=== PATIENT | female | born 1930 | race Hispanic/Latino ===

== ENCOUNTER 2019-04-11 23:37 | Inpatient (IN) | payer MEDICARE, MEDICAID ==
[2019-04-12 00:15] LABS: Hemoglobin 12.9 g/dL (12.0-16.0); Mean Corpuscular HGB CONC 33.6 g/dL (32.0-36.0); Mean Corpuscular Hemoglobin 33.7 pg (27.0-31.0); Mean Platelet Volume 9.5 fL (7.4-10.4); Platelet Count 234 thou/uL (130-400); RBC Distribution Width 13.8 % (11.5-14.5); Red Blood Cell (RBC) Count 3.82 mill/uL (4.20-5.40); White Blood Cell (WBC) Count 18.2 thou/uL (4.8-10.8)
[2019-04-12 00:33] LABS: Band 9 % (5-11); MDiff Complete? YES; Monocytes 3 % (0-10); Neutrophil 88 % (42-75)
[2019-04-12 00:35] LABS: ALT (SGPT) 22 U/L (8-55); AST (SGOT) 35 U/L (5-34); Albumin 3.5 g/dL (3.4-4.8); Alkaline Phosphatase 171 U/L (40-110); Anion Gap 16 mmol/L (10-20); BUN (Urea Nitrogen) 17 mg/dL (9.8-20.1); Calc. Creatinine Clearance 0 mL/min (70-130); Calcium 10.4 mg/dL (7.8-10.44); Carbon Dioxide 27 mmol/L (23-31); Chloride 92 mmol/L (98-107); Estimated GFR-MDRD 74; Globulin 4.4 g/dL (2.4-3.5); Glucose 111 mg/dL (83-110); Lipase 8 U/L (8-78); Magnesium 1.9 mg/dL (1.6-2.6); Potassium 4.7 mmol/L (3.5-5.1); Protein, Total 7.9 g/dL (6.0-8.3); Sodium 130 mmol/L (136-145)
[2019-04-12] MEDS ORDERED: Cefepime 2 GM VIAL ONE (00:41)
[2019-04-12 00:42] LABS: Actual Bicarbonate (HCO3a) 25.4 mEq/L (22-28); Analyzer IN Cardio ER; Base Excess (BEa) 1.7 mEq/L (-2.0 to +3.0); CO2 Tension 37.2 mmHg (35.0-45.0); Calcium, Ionized 1.18 mmol/L (1.12-1.30); Carboxyhemoglobin (COHb) 0.9 gm% (0.0-3.0); Hemoglobin (Hb) 13.2 g/dL (12.0-16.0); O2 Tension (PaO2) 119.4 mmHg (> 60.0); Potassium - ABG Lab 4.43 mmol/L (3.70-5.30); pH, Arterial 7.45 (7.35-7.45)
[2019-04-12 00:43] LABS: Puncture Site RRA
[2019-04-12] MEDS ORDERED: Acetaminophen 1,000 MG in Premix Bag 1 BAG IVPB SCH (01:00)
[2019-04-12] MEDS ORDERED: Norepinephrine 8 MG/0.9% NS 250 ML ONE (03:50)
[2019-04-12] MEDS ORDERED: Succinylcholine Chloride 20 MG/ML 10 ml SYRINGE FS ONE (03:50)
[2019-04-12] MEDS ORDERED: Ketamine 50 MG/ML (10ML VIAL) ONE (03:51)
[2019-04-12] MEDS ORDERED: Rocuronium Bromide 10 MG/ML (10ML VIAL) ONE (03:51)
[2019-04-12] MEDS ORDERED: EPINEPHrine 1 MG/ML AMP ONE (03:55)
[2019-04-12] MEDS ORDERED: EPINEPHrine 1 MG/10 ML Abboject SYRINGE ONE (03:56)
[2019-04-12] MEDS ORDERED: fentaNYL Citrate/PF 2,000 MCG in Sodium Chloride 0.9% 60 ML IV SCH ×3 (04:06→08:38)
[2019-04-12] MEDS ORDERED: Oseltamivir 6 MG/ML ORAL SUSP PER TUBE SCH (04:45)
[2019-04-12 04:54] LABS: Analyzer IN Cardio ER; Base Excess (BEa) -2.2 mEq/L (-2.0 to +3.0); CO2 Tension 52.9 mmHg (35.0-45.0); Calcium, Ionized 1.17 mmol/L (1.12-1.30); Carboxyhemoglobin (COHb) 1.1 gm% (0.0-3.0); Hemoglobin (Hb) 13.7 g/dL (12.0-16.0); O2 Tension (PaO2) 96.3 mmHg (> 60.0); Potassium - ABG Lab 3.85 mmol/L (3.70-5.30); pH, Arterial 7.29 (7.35-7.45)
[2019-04-12 04:58] LABS: Puncture Site RBA
[2019-04-12 05:05] LABS: ALV-art Gradient 122.775 (0-20)
[2019-04-12 07:07] LABS: Bacteria/HPF None Seen HPF (None Seen); Bilirubin Negative (Negative); Blood, Urine Negative (Negative); Clarity Clear (Clear); Glucose, Urine (Dipstick) Normal (Negative); Leukocyte Negative Leu/uL (Negative); Nitrite Negative (Negative); Protein, Urine (Dipstick) 70 mg/dL (Neg-Trace); Squamous Epithelial 0-3 HPF (0-3); Urobilinogen Normal mg/dL (Less than 2)
[2019-04-12 07:37] LABS: Base Excess (BEa) -1.1 mEq/L (-2.0 to +3.0); CO2 Tension 31.6 mmHg (35.0-45.0); Calcium, Ionized 1.15 mmol/L (1.12-1.30); Carboxyhemoglobin (COHb) 1.3 gm% (0.0-3.0); Hemoglobin (Hb) 12.7 g/dL (12.0-16.0); O2 Tension (PaO2) 145.7 mmHg (> 60.0); Potassium - ABG Lab 4.18 mmol/L (3.70-5.30); pH, Arterial 7.46 (7.35-7.45)
[2019-04-12] MEDS ORDERED: Propofol BOLUS 1,000 MG/100 ML VIAL IV PRN ×2 (07:37→08:38)
[2019-04-12] MEDS ORDERED: Lorazepam 2 MG/ML VIAL SLOW IVP PRN (07:37)
[2019-04-12] MEDS ORDERED: Fentanyl BOLUS 250 ML IVPB PRN ×2 (07:37→08:38)
[2019-04-12] MEDS ORDERED: DISCONTINUE PREVIOUS NARCOTIC PAIN MEDICATIONS AND BENZODIAZEPINES FS SCH (07:37)
[2019-04-12] MEDS ORDERED: Morphine 2 MG/ML SYRINGE SLOW IVP PRN (07:37)
[2019-04-12] MEDS ORDERED: Propofol 1,000 MG/100 ML VIAL IV PRN ×2 (07:37→08:38)
[2019-04-12 07:43] LABS: Puncture Site LB
--- NOTE | 2019-04-12 07:45 | CT ---
PRELIMINARY REPORT/[facility]/EMERGENCY AFTER HOURS PROCEDURE PROCEDURE INFORMATION: Exam: CT Abdomen And Pelvis With Contrast Exam date and time: 04/12/2019 1:29 AM Age: 89 years old Clinical history: Abdominal pain; Patient HX: F89 w/ HX of cabg, chf and ra presents to the ED for evaluation of mental status changes, SOB, ble swelling and generalized weakness onset 3 days ago. PT states her symptoms have gradually gotten worse. Daughter reports nausea, vomiting, and intermittent diarrhea. TECHNIQUE: Imaging protocol: Computed tomography of the abdomen and pelvis with intravenous contrast. COMPARISON: No relevant prior studies available. FINDINGS: Lungs: Bibasilar fibrosis. Liver: Normal. Gallbladder and bile ducts: Cholelithiasis. Pancreas: Normal. Spleen: Normal. Adrenals: Normal. Kidneys and ureters: Bilateral simple renal cysts. Stomach and bowel: Colonic diverticulosis. Appendix: No evidence of appendicitis. Intraperitoneal space: Unremarkable. No free air. No significant fluid collection. Vasculature: Atherosclerotic disease of the visualized distal thoracic aorta. Inferior vena cava filt er present. Atherosclerotic disease of the abdominal aorta and iliac arteries. Lymph nodes: Unremarkable. No enlarged lymph nodes. Bladder: Unremarkable as visualized. Reproductive: Unremarkable as visualized. Bones/joints: Right dynamic hip screw in place. Degenerative changes of the hips and sacroiliac joints. Multilevel lumbar spine degenerative changes, with multilevel thoracolumbar fusion terminatin g at the L1 level and additional posterior lumbar spine fusion at the L4-5 level. Chronic compression deformity of the L1 vertebral body. Grade 1 (5 mm) degenerative anterolisthesis of L4 on L5. Mild levoscoliosis of the lumbar spine. Soft tissues: Normal. IMPRESSION: No acute abdominal or pelvic abnormality. Thank you for allowing us to participate in the care of your patient. Dictated and Authenticated by: Chris Cortes MD 04/12/2019 2:00 AM Central Time ([place] & [place]) FINAL REPORT CT ABDOMEN AND PELVIS WITH IV CONTRAST: DATE: 04/12/2019. TIME: Performed on an emergency basis at 0132 hours. HISTORY: Abdominal pain. FINDINGS: Agree with the preliminary report by Dr. Cortes from [facility]. No acute inflammatory process evident. Gallstone confirmed. Prominent atherosclerosis. Extensive postoperative changes and severe degenerative changes throughout the lumbar spine. IVC filter in good CT position. No evidence of bowel obstruction. Transcribed Date/Time: 04/12/2019 8:33 AM
--- NOTE | 2019-04-12 07:49 | CT ---
PRELIMINARY REPORT/[facility]/EMERGENCY AFTER HOURS PROCEDURE PROCEDURE INFORMATION: Exam: CT Angiography Chest With Contrast Exam date and time: 04/12/2019 1:29 AM Age: 89 years old Clinical history: Chest pain; Patient HX: F89 w/ HX of cabg, chf and ra presents to the ED for evaluation of mental status changes, SOB, ble swelling and generalized weakness onset 3 days ago. PT states her symptoms have gradually gotten worse. Daughter reports nausea, vomiting, and intermittent diarrhea. TECHNIQUE: Imaging protocol: Computed tomographic angiography of the chest with intravenous contrast. 3D rendering: MIP reconstructed images were created and reviewed. COMPARISON: No relevant prior studies available. FINDINGS: Pulmonary arteries: No acute pulmonary emboli. Aorta: Atherosclerotic disease of the thoracic aorta, without aneurysm. Lungs: Bilateral, peripheral, lower lobe predominant fibrosis and minimal bronchiectasis. Minimal honeycombing. 7 x 5 mm pneumatocele within the lingula. Pleural space: Unremarkable. No pneumothorax. No pleural effusion. Heart: Changes of prior sternotomy and CABG. Gallbladder and bile ducts: Cholelithiasis. Lymph nodes: Unremarkable. No enlarged lymph nodes. Bones/joints: Multilevel thoracic spine degenerative changes, with partially visualized posterior thoracolumbar spine fusion and evidence of prior vertebral augmentation of the T9-10 level. Chronic a ppearing T5 vertebral plana. Chronic-appearing mild anterior compression deformity of the T7 vertebral body. Gradual kyphotic deformity of the thoracic spine, likely secondary to degenerative changes and vertebral body compression deformities. Soft tissues: Unremarkable. IMPRESSION: 1. No acute pulmonary emboli. 2. Bilateral, peripheral, lower lobe predominant fibrosis and minimal bronchiectasis. Minimal honeycombing. Findings most compatible with chronic interstitial lung disease such as fibrotic nonspecific interstitial pneumonitis or chronic hypersensitivity pneumonitis. 3. Additional findings as described above. Thank you for allowing us to participate in the care of your patient. Dictated and Authenticated by: Chris Cortes MD 04/12/2019 1:55 AM Central Time ([place] & [place]) FINAL REPORT CT ARTERIOGRAM CHEST WITH IV CONTRAST AND 3D IMAGING: DATE: 04/12/2019 TIME: Performed on emergency basis at 0137 hours. HISTORY: Chest pain. Dyspnea. FINDINGS: Agree with the preliminary report by Dr. Cortes from [facility]. No CT evidence of pulmonary e mbolus. Extensive fibrotic changes. Minimal bronchiectasis. Prominent atherosclerosis. Extensive incidental findings as detailed in the preliminary report. Abdominal findings better detail ed on separately reported dedicated CT abdomen. Transcribed Date/Time: 04/12/2019 8:31 AM
[2019-04-12] MEDS ORDERED: FLU VACC TS2019-20(65YR UP)/PF 180 MCG/0.5 ML SYRINGE IM ONE (08:00)
--- NOTE | 2019-04-12 08:06 | HP ---
PRIMARY CARE PHYSICIAN: Madisyn Eason MD CHIEF COMPLAINT: Not feeling well. HISTORY OF PRESENT ILLNESS: The history of present illness is very limited and is taken almost entirely from discussion with the patient's nurse at the bedside. Currently, there is no family available and the patient is intubated and cannot give her own history. But, Ms. Mosqueda is an 89-year-old female, who was reported to have been hospitalized recently for cellulitis and then was transitioned to inpatient rehab. She was then discharged home. She lives with her daughter and the family noticed that in the last few days that she has been extremely tired. They also noted that she has been feeling bad and appeared to be short of breath. When she arrived to the emergency room, it appeared that she was working hard to breathe. They did an x-ray on her showing significant infiltrate on the right and started on antibiotics as well as placed her on BiPAP. She seemed to be doing well with the BiPAP and had been on BiPAP for about 3 hours when they noticed that suddenly her blood pressure dropped as well as her saturations and she seemed to be acting strange. For this reason, they went ahead and intubated her and we have been consulted for admission to the hospital for respiratory failure. REVIEW OF SYSTEMS: Unobtainable. PAST MEDICAL HISTORY: Taken from the patient's progress note from a recent clinic visit from Dr. Eason and includes a past medical history of diabetes mellitus, rheumatoid arthritis, congestive heart failure, hypertension, and depression. PAST SURGICAL HISTORY: She has had coronary artery bypass grafting, cataract surgery, back surgery, that she developed osteomyelitis and then had to have a redo surgery. SOCIAL HISTORY: She is a nonsmoker, nondrinker. She lives with family at home. ALLERGIES: TO PENICILLIN. CURRENT MEDICATIONS: Include; 1. Losartan 50/12.5 one tablet daily. 2. Plaquenil 200 mg daily. 3. Prednisone 5 mg daily. 4. Fish oil daily. 5. Isosorbide mononitrate 60 mg extended release daily. 6. Xarelto 20 mg daily. 7. Paroxetine 10 mg daily. 8. Gabapentin 300 mg 2 tablets daily. 9. Lasix 20 mg 2 tablets daily. 10. Caltrate 600 plus D3 daily. 11. Nexium 20 mg daily. 12. Duloxetine 30 mg daily. 13. Vitamin C 500 mg daily. 14. Crestor 5 mg p.o. daily. PHYSICAL EXAMINATION: GENERAL: She is intubated. She is very thin and frail in appearance and I am unable to assess orientation. HEENT: Her pupils are reactive. NECK: There is no adenopathy. No bruits. LUNGS: She has coarse breath sounds bilaterally. It is actually a bit difficult to hear over the ventilator, but appears that she has rales at the bases. CARDIOVASCULAR: She has a normal S1 and S2. There is no S3 or S4. No murmurs, clicks, or rubs. ABDOMEN: Soft, nontender, and nondistended. Positive for bowel sounds. No rebound. No guarding. No organomegaly. EXTREMITIES: There is no clubbing or cyanosis. No edema. NEUROLOGICAL: Grossly nonfocal. LABORATORY DATA: Her labs are reviewed. The white blood cell count is 18.2, hemoglobin 12.9, hematocrit is 38.4, and platelet count is 234. D-dimer 3.71. Sodium 130, potassium 4.7, chloride is 92, CO2 is 27, BUN is 17, creatinine 0.74, glucose is 111, AST 35, ALT 22, and alkaline phosphatase is 171. ASSESSMENT AND PLAN: This is a pleasant 89-year-old female, who is being admitted for respiratory failure with hypoxemia. She has required ventilator support. 1. Respiratory failure likely as a result of hospital-acquired pneumonia. We will be placing the patient in the ICU. Start her on IV antibiotics to cover for healthcare hospital-associated pneumonia. Pulmonology will be consulted to aid in her management as well as her vent management. 2. Hypertension. Her blood pressure was initially elevated. We can place her on p.r.n. medications for her blood pressure as well as consider a Catapres patch at this time until nasogastric tube can be placed or she is extubated and starting back on oral medicines. 3. Congestive heart failure, unknown type. This appears to be clinically compensated. However, she could be volume overloaded in addition to the pneumonia. We will check an echocardiogram to assess her ejection fraction. 4. Deep venous thrombosis and gastrointestinal prophylaxis. She is on Eliquis. Therefore, we will continue this if at all possible in lieu of subcutaneous heparin and she will be placed on IV proton pump inhibitor. Job ID: [id number]
[2019-04-12] MEDS ORDERED: Acetaminophen 325 MG TAB PO PRN (08:09)
[2019-04-12] MEDS ORDERED: Ventilator Sedation Protocol 1 EACH FS ONE (08:09)
[2019-04-12] MEDS ORDERED: Cefepime 2 GM in Sodium Chloride 0.9% 100 ML IVPB SCH (09:00)
[2019-04-12] MEDS ORDERED: Famotidine/PF 20 mg/2ml Vial SLOW IVP SCH (09:00)
--- NOTE | 2019-04-12 09:51 | CON ---
DATE OF CONSULTATION: 04/12/2019 This is 70 minutes of time, of that time, greater than 50% spent with the patient and/or the patient's unit in the hospital. REASON FOR CONSULTATION: Respiratory failure. HISTORY OF PRESENT ILLNESS: The patient is an 89-year-old female, who has been doing poorly at home over the last 3 days. The daughter was concerned about nausea, vomiting, and fever. She called 911 because she was unable to get the patient in the car. She was brought here. Her x-ray appeared to show pneumonia. She was started on BiPAP, but deteriorated in terms of respiratory status and had to be intubated. The patient was recently at the [facility] in February with what appears to be left lower extremity cellulitis. She was treated then sent over to rehab, but has been doing poorly since coming home from rehab. PAST MEDICAL HISTORY: 1. Rheumatoid arthritis. 2. Question of congestive heart failure. 3. Hypertension. 4. Depression. 5. Diabetes mellitus. PAST SURGICAL HISTORY: 1. Coronary artery bypass grafting surgery. 2. Cataract surgery. 3. Back surgery. 4. Osteomyelitis. SOCIAL HISTORY: Lifetime nonsmoker. Does not consume alcohol. Lives at home with her family. ALLERGIES: PENICILLIN. MEDICATIONS: Prior to admission: 1. Losartan. 2. Plaquenil. 3. Prednisone. 4. Fish oil. 5. Isosorbide. 6. Xarelto. 7. Paroxetine. 8. Gabapentin. 9. Lasix. 10. Caltrate. 11. Nexium. 12. Duloxetine. 13. Vitamin C. 14. Crestor. REVIEW OF SYSTEMS: Cannot be obtained as the patient is on mechanical ventilation. PHYSICAL EXAMINATION: VITAL SIGNS: Temperature 98.8, pulse 84, blood pressure 104/66, and O2 saturation 100%. GENERAL: She is an elderly female, who is intubated and sedated. HEENT: Pupils are reactive. Sclerae anicteric. Oropharynx clear. NECK: No adenopathy or JVD. LUNGS: She has coarse inspiratory crackles most prominent over the bases. CARDIAC: S1 and S2, regular. ABDOMEN: Soft, nontender, and nondistended. EXTREMITIES: No clubbing, cyanosis, or edema. LABORATORY DATA: Sodium 130, potassium 4.7, chloride 92, CO2 of 27, BUN 17, creatinine 0.7, glucose 111, albumin 3.5. A pH of 7.46, pCO2 of 31, pO2 of 145 on SIMV rate 16, tidal volume 400, PEEP 5, pressure support 10, and FiO2 of 40%. White blood cell count 18.2, hematocrit 38.4, and platelet count 234. Urinalysis shows 7 to 10 white blood cells. D-dimer was 3.7. I reviewed her chest x-ray and CT scan personally. The CT scan shows profound interstitial changes bilaterally with some honeycombing. To me, this looks like a classic pulmonary fibrosis picture. She also has a fairly large pneumatocele in the left chest. ASSESSMENT: 1. Acute on chronic respiratory failure, requiring mechanical ventilation. I would favor this all being due to decompensated idiopathic pulmonary fibrosis or rheumatoid induced interstitial lung disease. There is nothing on her CT scan that looks like an infiltrate. However, this can easily be confused for pneumonia when looking at a plain x-ray. 2. Hypertension. 3. Diabetes mellitus. 4. Chronic prednisone use. 5. History of deep venous thrombosis. PLAN: Discussed my findings with the patient's family. I agree with broad-spectrum IV antibiotics temporarily. I would go ahead and start her on IV steroids, start IV fluids. If this is indeed due to interstitial lung disease, then she probably will not do well. We will give her a couple of days and see what results from her cultures and then I will re-discuss long-term issues with the family. Job ID: [id number]
[2019-04-12] MEDS: Cefepime 1 GM in Sodium Chloride 0.9% 100 ML IVPB SCH ×2 (09:56→21:31)
[2019-04-12] MEDS ORDERED: metroNIDAZOLE 500 MG in Premix Bag 1 BAG IVPB SCH (10:00)
--- NOTE | 2019-04-12 10:01 | RAD ---
PORTABLE CHEST: Date: 04/12/19 HISTORY: Central line placement. COMPARISON: Earlier exam same date. FINDINGS: There has been interval placement of a right-sided central line. Catheter tip overlies the right atri um. No signs of pneumothorax. No other interval change. IMPRESSION: Placement of right-sided central line. No signs of pneumothorax. POS: [facility]
[2019-04-12] MEDS: Sodium Chloride 0.9% 1,000 ML IV SCH (10:06)
--- NOTE | 2019-04-12 10:07 | RAD ---
CHEST 1 VIEW: Date: 04/11/19 HISTORY: Chest pain. Mental status change. Shortness of breath. Lower extremity swelling and weakness. FINDINGS: Extensive postop changes of the thoracolumbar spine with jazmyne and screw placement, and vertebroplasty changes. Very severe poor inspiratory effort with prominent increased linear and interstitial marking s bilaterally. Marked right shoulder joint arthrosis. Findings could represent extensive chronic inte rstitial lung disease, although certainly a component of interstitial pneumonia or pneumonitis could have a similar appearance. IMPRESSION: Poor inspiration with interstitial changes bilaterally, worse on the right side, with concern for aty pical pneumonia or interstitial pneumonia or pneumonitis, and/or some underlying chronic component. N o old studies. Recommend correlation and short-term follow-up. POS: [facility]
--- NOTE | 2019-04-12 10:20 | RAD ---
CHEST 1 VIEW: HISTORY: Shortness of breath status post intubation. FINDINGS/IMPRESSION: NG tube extends into the stomach. The tip of the endotracheal tube overlies the [place] rods and fixation but is probably in adequate position. Extensive bilateral interstitial and linear and some reticulonodular parenchymal changes with possibilities including that of bilateral atypical pneumonia or pneumonitis or less likely asymmetric interstitial edema with a probable component of chronic int erstitial lung disease. Stable from prior study. POS: [facility]
[2019-04-12] MEDS ORDERED: Norepinephrine 8 MG/0.9% NS 250 ML IVPB SCH (10:37)
[2019-04-12] MEDS ORDERED: Iopamidol 370 76% 50 ML VIAL FS ONE (11:16)
[2019-04-12] MEDS ORDERED: Iopamidol-370 76% 500 ML 1 ML ONE (11:31)
[2019-04-12] MEDS: methylPREDNISolone Sod Succ 40 MG VIAL IVP SCH ×2 (12:03→17:16)
[2019-04-12 12:34] LABS: Lactic Acid 2.7 mmol/L (0.5-2.2)
[2019-04-12] MEDS: Vancomycin HCl 1 GM in Premix Bag 1 BAG IVPB SCH (14:41)
--- NOTE | 2019-04-12 14:56 | PDOC.HOSPP ---
- Subjective Encounter Date: 04/12/19 Encounter Time: 13:00 Subjective: awakens to touch, not oriented, lethargic on vent - Objective Vital Signs & Weight: Vital Signs (12 hours) Temp Pulse Resp BP Pulse Ox 04/12/19 14:00 13 04/12/19 13:53 62 135/62 04/12/19 12:00 98.2 F 15 04/12/19 11:23 74 94/56 L 04/12/19 08:00 100 04/12/19 07:00 98.8 F 04/12/19 06:58 92 127/77 Weight Admit Weight 125 lb Weight 125 lb 0.034 oz Most Recent Monitor Data Heart Rate from ECG 69 NIBP 155/78 NIBP BP-Mean 103 Respiration from ECG 20 SpO2 100 I&O: 04/11/19 04/12/19 04/13/19 06:59 06:59 06:59 Intake Total 200 Output Total 122 Balance 78 Result Diagrams: 04/11/19 23:51 04/11/19 23:51 Hospitalist ROS - Medication Medications: Active Medications Generic Name Dose Route Start Last Admin Trade Name Freq PRN Reason Stop Dose Admin Cefepime HCl 1 gm/ Sodium 100 mls @ 200 mls/hr 04/12/19 09:00 04/12/19 09:56 Chloride IVPB 100 mls Q12HR CLARA Administration Metronidazole 500 mg/ Device 100 mls @ 100 mls/hr 04/12/19 10:00 04/12/19 09: 57 IVPB 100 mls 0200,1000,1800 CLARA Administration Vancomycin HCl 1 gm/ Device 200 mls @ 200 mls/hr 04/12/19 15:00 04/12/19 14: 41 IVPB 200 mls 0300,1500 CLARA Administration Sodium Chloride 1,000 mls @ 70 mls/hr 04/12/19 09:15 04/12/19 10:06 Normal Saline 0.9% IV 1,000 mls .[id number] CLARA Administration Methylprednisolone Sodium Succinate 20 mg 04/12/19 12:00 04/12/19 12:03 Solu-Medrol IVP 20 mg Q6HR CLARA Administration Sodium Chloride 10 ml 04/12/19 09:00 04/12/19 10:13 Flush - Normal Saline IVF 10 ml Q12HR CLARA Administration - Exam General Appearance: awake alert, ill appearing Eye: PERRL, anicteric sclera ENT: no oropharyngeal lesions, dry oral mucosa Neck: supple, no JVD Heart: RRR, no murmur Respiratory: no wheezes, no rales, rhonchi Gastrointestinal: soft, non-tender, non-distended, normal bowel sounds Extremities: no cyanosis, 1+ LE edema Neurological: cranial nerve grossly intact, no focal deficits Hosp A/P (1) Acute respiratory failure with hypoxia Code(s): J96.01 - ACUTE RESPIRATORY FAILURE WITH HYPOXIA Status: Acute (2) Interstitial lung disease Code(s): J84.9 - INTERSTITIAL PULMONARY DISEASE, UNSPECIFIED Status: Chronic (3) Rheumatoid arthritis Code(s): M06.9 - RHEUMATOID ARTHRITIS, UNSPECIFIED Status: Chronic Qualifiers: Rheumatoid arthritis location: unspecified site (4) Hypotension Status: Acute Qualifiers: Hypotension type: unspecified hypotension type Qualified Code(s): I95.9 - Hypotension, unspecified (5) DM type 2 (diabetes mellitus, type 2) Status: Chronic Qualifiers: Diabetes mellitus emt intermediate insulin use: without emt intermediate use (6) CAD (coronary artery disease) Code(s): I25.10 - ATHSCL HEART DISEASE OF [place] CORONARY ARTERY W/O ANG PCTRS Status: Chronic Qualifiers: Coronary Disease-Associated Artery/Lesion type: bypass graft [place] vs. transplanted heart: [place] heart Associated angina: without angina Qualified Code(s): I25.810 - Atherosclerosis of coronary artery bypass graft(s) without angina pectoris (7) Dyslipidemia Code(s): E78.5 - HYPERLIPIDEMIA, UNSPECIFIED Status: Chronic - Plan is on cefepime and vanc, nebs, iv steroids dc flagyl for now continue iv fluids, may taper and dc levophed for map of 60 RA labs, crp, whit with reflex discussed code status with daughter at bedside, she does not want cpr done and continue to see if she can come out of vent prognosis guarded.
[2019-04-12] MEDS ORDERED: Vancomycin HCl 1 GM in Premix Bag 1 BAG IVPB SCH (15:00)
[2019-04-12] MEDS ORDERED: Heparin 1,000 UNITS/ML VIAL ONE (16:40)
[2019-04-12] MEDS: Lorazepam 2 MG/ML VIAL SLOW IVP PRN ×2 (17:10→20:10)
--- NOTE | 2019-04-12 21:15 | CT ---
CT THORACIC SPINE WITH IV CONTRAST: CT LUMBAR SPINE WITH IV CONTRAST: HISTORY: Mid back wound, tracing to the spine and concern for osteomyelitis. FINDINGS: There are postop changes of metallic hardware in the thoracic and lumbar spine. The metallic hardware appears intact. Multiple compression fractures are seen in the thoracolumbar spine, most severe at t he T5 and L1 vertebral body levels. There are changes of vertebroplasty in the lower thoracic spine, at the T9 and T10 levels. The possibility of osteomyelitis cannot be excluded on this study. An MRI should be performed. There is grade 1 anterolisthesis of L4 over L5. There are tiny bilateral pleural effusions. Old bilat eral lower rib fractures are present. There is an IVC filter. A right renal cyst is present. There is colonic diverticulosis. POS: [facility]
[2019-04-13] MEDS: methylPREDNISolone Sod Succ 40 MG VIAL IVP SCH ×4 (01:39→20:51)
[2019-04-13] MEDS: Vancomycin HCl 1 GM in Premix Bag 1 BAG IVPB SCH ×2 (03:49→15:38)
[2019-04-13] MEDS: Sodium Chloride 0.9% 1,000 ML IV SCH ×3 (03:49→20:46)
[2019-04-13] MEDS: Lorazepam 2 MG/ML VIAL SLOW IVP PRN (04:01)
[2019-04-13 04:58] LABS: Anion Gap 12 mmol/L (10-20); BUN (Urea Nitrogen) 21 mg/dL (9.8-20.1); Calc. Creatinine Clearance 55 mL/min (70-130); Calcium 8.4 mg/dL (7.8-10.44); Carbon Dioxide 21 mmol/L (23-31); Chloride 104 mmol/L (98-107); Estimated GFR-MDRD 89; Glucose 130 mg/dL (83-110); Potassium 4.4 mmol/L (3.5-5.1); Sodium 133 mmol/L (136-145)
[2019-04-13 05:24] LABS: Band 18 % (5-11); Hemoglobin 10.6 g/dL (12.0-16.0); Lymphocytes 8 % (21-51); MDiff Complete? YES; Mean Corpuscular Hemoglobin 32.3 pg (27.0-31.0); Mean Platelet Volume 9.3 fL (7.4-10.4); Neutrophil 74 % (42-75); Platelet Count 210 thou/uL (130-400); RBC Distribution Width 13.7 % (11.5-14.5); Red Blood Cell (RBC) Count 3.29 mill/uL (4.20-5.40); White Blood Cell (WBC) Count 21.7 thou/uL (4.8-10.8)
[2019-04-13 06:58] LABS: Actual Bicarbonate (HCO3a) 19.8 mEq/L (22-28); Base Excess (BEa) -4.1 mEq/L (-2.0 to +3.0); CO2 Tension 32.7 mmHg (35.0-45.0); Calcium, Ionized 1.12 mmol/L (1.12-1.30); Carboxyhemoglobin (COHb) 0.8 gm% (0.0-3.0); Hemoglobin (Hb) 11.4 g/dL (12.0-16.0); O2 Tension (PaO2) 171.4 mmHg (> 60.0); Potassium - ABG Lab 4.24 mmol/L (3.70-5.30)
[2019-04-13 07:02] LABS: ALV-art Gradient 72.925 (0-20); Puncture Site LRA
--- NOTE | 2019-04-13 07:47 | RAD ---
Chest one view HISTORY: Pneumonia. Follow-up. COMPARISON: 04/12/2019. FINDINGS: Cardiac silhouette is magnified by projection and upper limits of normal in size. Pulmonary vasculature remains engorged and accentuated by shallow inspiration. Mediastinum is midline with postoperative changes and aortic calcification. Lines and tubes are uncha nged in position. Bilateral pleural fluid similar in appearance to the prior study. No evidence of pneumothorax. Prominent degenerative changes right shoulder. IMPRESSION: Pleural fluid, pulmonary vascular congestion, and other findings are stable.
--- NOTE | 2019-04-13 09:04 | PRG ---
DATE OF SERVICE: 04/13/2019 TIME SPENT: 35 minutes of critical time. SUBJECTIVE: The patient remains intubated on mechanical ventilation. She is deeply sedated this morning. OBJECTIVE: VITAL SIGNS: Temperature 98.0, pulse 81, blood pressure 100/55, and O2 saturation 100%. She is on Levophed drip at 1.5 mcg/minute. Intake for last 24 hours 2418 and output 509. HEENT: Unremarkable. NECK: No adenopathy or JVD. CHEST: Inspiratory crackles, both bases. CARDIAC: S1 and S2, regular. ABDOMEN: Soft. EXTREMITIES: No edema. LABORATORY DATA: Sodium 133, potassium 4.4, chloride 104, CO2 of 21, BUN 21, creatinine 0.6, glucose 130. C-reactive protein is 27.2. A pH of 7.40, pCO2 of 32, pO2 of 171 on SIMV rate 12, tidal volume 400, PEEP 5, pressure support 10, FiO2 of 40%. White blood cell count 21.7, hematocrit 33.3, and platelet count 210, with 74% neutrophils, 18% bands. Her cultures are growing out Staphylococcus aureus out of the blood culture bottles. Chest x-ray continues to show interstitial changes bilaterally. ASSESSMENT: 1. Staphylococcal sepsis - this is probably the reason for her decompensation. 2. Interstitial lung disease. Her good gas exchange on ABG favors being rheumatoid induced interstitial lung disease and not idiopathic pulmonary fibrosis. 3. Hypertension. 4. Diabetes mellitus. 5. Chronic prednisone use. 6. History of deep venous thrombosis. 7. Decubitus ulcer on back. PLAN: 1. I will see if we can lighten her sedation and perform spontaneous breathing trial and see how she looks. 2. She will need long-term IV antibiotics. She will see Dr. Higginbotham later today and he will likely adjust the coverage as needed. 3. I will cut her steroid dose in half. 4. I discussed with daughter at bedside. Job ID: [id number]
[2019-04-13] MEDS: Cefepime 1 GM in Sodium Chloride 0.9% 100 ML IVPB SCH ×2 (09:32→20:51)
[2019-04-13] MEDS: Famotidine/PF 20 mg/2ml Vial SLOW IVP SCH (09:36)
--- NOTE | 2019-04-13 11:29 | PRG ---
DATE OF SERVICE: 04/13/2019 SUBJECTIVE: The patient is seen and examined. I agree with Marleni Palmer's evaluation on 04/13/2019. The patient is an 89-year-old woman, who was critically ill with sepsis and respiratory failure on a ventilator. She has already been made DNR by the family and an ongoing discussion regarding aggressiveness of care is underway. The patient has extended past spinal history having undergone both lower lumbar and extensive thoracolumbar instrumented fusions in the past. During a recent hospitalization, she began to develop a decubitus ulcer over the thoracic region, which seems to be in the region of some prior hardware. This was evaluated by wound care here at the hospital and she continues to have an open weeping wound with fibrinous exudate in this region. It is quite possible or even likely this is right above the previous one element of the previous hardware and may in fact communicated with the previous hardware. A CT scan has been performed. No gross or francesco fluid collection was identified on the CT scan and it is impossible to say with certainty the involvement of the hardware of the spine with this open wound. There were no specific manifestations of active spinal infection. IMPRESSION AND PLAN: The patient has an open wound just above the spinal instrumentation. She is not a reasonable candidate for any type of surgery. I discussed this at length with her family. I recommend ongoing wound care and antibiotic treatment for her systemic infection. We will defer to the primary service regarding ongoing discussion on level of care. Job ID: [id number]
[2019-04-13] MEDS: Morphine 2 MG/ML SYRINGE SLOW IVP PRN ×3 (14:36→22:27)
--- NOTE | 2019-04-13 15:50 | CON ---
DATE OF CONSULTATION: REASON FOR CONSULTATION: Bacteremia. HISTORY OF PRESENT ILLNESS: An 89-year-old with history of long-standing rheumatoid arthritis, cardiomyopathy with bypass graft surgery, and prior deep vein thrombosis, on Xarelto, who was recently admitted to [facility] in February because of lethargy and weakness. She had 2 sets of blood cultures, which showed Corynebacterium in 1 set, likely a contaminant. Her urine culture was abnormal, but she did have cellulitis identified in the left leg, which was treated. The patient improved and then had been released to a rehabilitation at [facility]. There, she developed decubitus ulcer, localized to the mid back region, where she has a kyphotic curvature. The daughter has noticed this problem for the past 4 weeks at [facility]. Subsequently, she became confused a few days ago. Generalized weakness present as well with some nausea, vomiting, and intermittent diarrhea. She had been discharged from rehab 3 days before the admission to this hospital. On arrival to the emergency room, her BP was 200/117, pulse 127, respiratory rate 38, and O2 saturation 93%. She was placed in a BiPAP mask and subsequently became hypotensive, was intubated, and transferred to the ICU. The patient did have a non-intubation advanced directives, but that was changed by the daughters when she complicated in the emergency room. She appeared ill, although she was alert. Breath sounds were clear. The heart exam was normal. Abdomen is soft and not tender. A central line was placed in right IJ location. Chest x-ray did not show any infiltrates. She had an abdomen and pelvis CT scan, which showed normal findings. She also had a CT of chest with no pulmonary emboli and some evidence of chronic interstitial lung disease with fibrosis, bronchiectasis, and minimal honeycombing. Now, we have 2 sets of blood cultures positive for Staphylococcus aureus, which is methicillin susceptible. The patient is intubated. She is sedated and does not open her eyes, does not interact. She is kind of groans intermittently. She has shivering of the extremities intermittently, but no purposeful movements. There is no reported diarrhea. An indwelling Gray catheter has been removed. She is incontinent now. PAST MEDICAL HISTORY: 1. Coronary artery disease with bypass graft surgery. 2. Chronic rheumatoid arthritis. 3. Spinal fusion of lower thoracic lumbosacral area. 4. UTI. 5. Delirium. 6. Recent admission to [facility]. 7. Development of decubitus ulcer at the kyphotic curvature of the lower thoracic spine area. ALLERGIES: PENICILLIN MANY DECADES AGO, APPARENTLY WITH A RASH, ACCORDING TO THE DAUGHTER. PAST SURGICAL HISTORY: As above, she had cataract surgery and back fusion. MEDICATION LIST: 1. Furosemide. 2. Gabapentin. 3. Nexium. 4. Caltrate. 5. Centrum. 6. Vitamin C. 7. Duloxetine. 8. Ventolin HFA. 9. Rosuvastatin. 10. Prednisone 5 mg daily. 11. Losartan and hydrochlorothiazide. 12. Hydroxychloroquine. 13. Xarelto. 14. Paroxetine. 15. Isosorbide. FAMILY HISTORY: Noncontributory. PHYSICAL EXAMINATION: VITAL SIGNS: T-max 98.4, BP 116/58, pulse 70, respirations 12, FiO2 of 28 with 100% O2 saturation. SKIN: Round-shaped ulceration in the mid back area to the left side along the incision of the previous fusion of upper segment. The patient has an IJ central line on the right side and a Gary catheter has been removed. HEENT: The pupils are miotic and her eye movements are intact, although she does not follow commands. Oral cavity is dry. NECK: Stiff to all directions. LUNGS: Symmetric air entry. HEART: S1 and S2. Regular rate. No S3 or S4. ABDOMEN: Soft, not distended or tender. No ascites or bladder distention. EXTREMITIES: No joint inflammatory activity. She has deformities from prior long-standing rheumatoid arthritis. No edema. Pulses 1+ in dorsalis pedis. NEUROLOGIC: Cannot check her cognitive function. LABORATORY STUDIES: White cell count was 18.2 and 21.7; hemoglobin 12.9 and 10.6, platelets 234 with 88% neutrophils and now 18% bands. A pH of 7.4, pCO2 of 32, pO2 of 171. Creatinine is at 0.63. AST 35, ALT 171, and albumin 3.5. CRP was 27.19. Urinalysis; 7-10 wbc's, microbiology noted above. She has a thoracic spine CT, which showed chronic changes. She has an IVC filter present in place. She has a compression fracture seen in thoracolumbar spine, most severe at T5 and L1 vertebral body levels, and there is vertebroplasty of lower thoracic spine at T9 and T10 levels. ASSESSMENT: 1. Rheumatoid arthritis, on low-dose prednisone. 2. Prior deep vein thrombosis with an inferior vena cava filter. 3. Coronary artery disease with bypass graft surgery. 4. Kyphotic curvature of the thoracic spine with now development of decubitus ulcer at the intermediate, un-stageable at this point in time. Actually, there is exposed screw from the fusion from prior surgical intervention here in the hospital by Dr. Mckeon. DISCUSSION: The patient does not appear to be a candidate for surgical intervention, so we will continue her on cefazolin for protracted periods of time and placement of a PICC line. I have discussed advanced directives and the family stated that she does not want protracted intubation, but she would like the other components of treatment. The end date of therapy will be sometime around 05/27. Weekly labs. If family is interested in a more aggressive intervention, then we can order an MRI of the thoracic spine and lumbar spine. May even consider MARILYN to rule out endocarditis. Other sites are not apparently involved including no lung infiltrates, no other bone or joint involvement apparent at this time. She does not have any devices either. Job ID: [id number]
[2019-04-13] MEDS: Acetaminophen 650 MG/20.3 ML UDCUP PO PRN (20:51)
--- NOTE | 2019-04-13 21:07 | CON ---
DATE OF CONSULTATION: This is Marleni Chakraborty PA-C dictating a report for Huy Mckeon MD. HISTORY OF PRESENT ILLNESS: The patient is an 89-year-old female with a past medical history of hypertension, diabetes, rheumatoid arthritis with multiple prior thoracic and lumbar surgeries with extensive thoracolumbar fusion, who presented to the emergency department recently for generalized weakness and increased shortness of breath. During her initial evaluation, she was found to be in acute respiratory failure with 21,000 white blood cell count. She was also found to be septic and blood cultures have been positive for gram-positive cocci and Staphylococcus aureus. She is currently being treated by vancomycin and cefepime by the Medical team. There is questionable infiltrate versus interstitial lung disease. Neurosurgery was asked to consult because in addition to her acute respiratory failure and sepsis, she has a small decubitus wound along the midthoracic spine just overlying her hardware. There is a small amount of serous drainage coming from the wound and patient has been seen by Wound Care with concern for possible extension to the hardware, as well as underlying osteomyelitis. She did have a noncontrast CT done, which was negative for any obvious abscess formation. I visited the patient at the bedside. She does not open her eyes and she is currently intubated, so exam is somewhat limited. She will move all 4s intermittently. I visualized the small approximately 1 cm wound. It has been overlying, exuding, and some serous drainage on the dressing. PAST MEDICAL HISTORY: Diabetes, rheumatoid arthritis, congestive heart failure, and hypertension. PAST SURGICAL HISTORY: Prior CABG, multiple thoracic and lumbar surgeries with extensive thoracolumbar fusion, history of osteomyelitis. SOCIAL HISTORY: The patient lives at home with her family. She does not smoke, drink, or use any drugs. ALLERGIES: SHE IS ALLERGIC TO PENICILLIN. REVIEW OF SYSTEMS: Unobtainable. PHYSICAL EXAMINATION: VITAL SIGNS: On my exam, heart rate regular rhythm. BP is 132/63. She is 99%, currently being mechanically ventilated. HEENT: Head, normocephalic, atraumatic. Eyes, pupils are equal and reactive to light. ENT, oral mucosa is pink, intact. She currently has endotracheal tube in place. CARDIAC: Regular rate and rhythm. RESPIRATORY: Symmetric chest expansion. Currently being mechanically ventilated. MUSCULOSKELETAL: No obvious trauma. Symmetric pulses. She will move all fours spontaneously. NEURO: Somewhat limited. Considering her current status of being intubated, but she will move all fours spontaneously and follow some commands at times. ASSESSMENT AND PLAN: This is an 89-year-old female, who was recently admitted for respiratory failure and sepsis, was found to have a small open wound overlying her midthoracic hardware. At this point, there is no francesco infection or abscess formation on the CT. Considering her additional medical issues at that time, there are no plans for acute neurosurgical intervention. We are recommending treatment with ongoing antibiotics. I discussed this plan with Dr. Mckeon. He will also see this patient and meet with family. Job ID: [id number]
--- NOTE | 2019-04-13 21:59 | PDOC.HOSPP ---
- Subjective Encounter Date: 04/13/19 Encounter Time: 11:30 Subjective: on vent, is obtunded daughter at bedside - Objective Vital Signs & Weight: Vital Signs (12 hours) Temp Pulse Resp BP Pulse Ox 04/13/19 20:00 99.6 F 27 H 100 04/13/19 18:52 90 104/52 L 04/13/19 18:00 14 04/13/19 16:00 12 04/13/19 15:10 71 116/59 L 04/13/19 15:07 73 20 99 04/13/19 14:00 12 04/13/19 13:00 98.0 F 04/13/19 12:00 15 04/13/19 10:33 73 127/62 04/13/19 10:31 73 14 99 04/13/19 10:00 12 Weight Admit Weight 125 lb Weight 128 lb 1.417 oz Most Recent Monitor Data Heart Rate from ECG 87 NIBP 121/59 NIBP BP-Mean 79 Respiration from ECG 24 SpO2 100 I&O: 04/12/19 04/13/19 04/14/19 06:59 06:59 06:59 Intake Total 2418.6 1026.5 Output Total 509 235 Balance 1909.6 791.5 Result Diagrams: 04/13/19 04:01 04/13/19 04:01 Hospitalist ROS - Medication Medications: Active Medications Generic Name Dose Route Start Last Admin Trade Name Freq PRN Reason Stop Dose Admin Acetaminophen 650 mg 04/13/19 20:26 04/13/19 20:51 Tylenol Elixir PO 650 mg Q4H PRN Administration Headache/Fever/Mild Pain (1-3) Albuterol/Ipratropium 3 ml 04/12/19 18:30 04/13/19 18:51 Duoneb NEB 3 ml [id number] CLARA Administration Famotidine 20 mg 04/13/19 09:00 04/13/19 09:36 Pepcid SLOW IVP 20 mg QAM CLARA Administration Cefepime HCl 1 gm/ Sodium 100 mls @ 200 mls/hr 04/12/19 09:00 04/13/19 20:51 Chloride IVPB 100 mls Q12HR CLARA Administration Vancomycin HCl 1 gm/ Device 200 mls @ 200 mls/hr 04/12/19 15:00 04/13/19 15: 38 IVPB 200 mls 0300,1500 CLARA Administration Fentanyl Citrate 2,000 mcg/ 100 mls @ 0 mls/hr 04/12/19 08:38 04/12/19 22:08 Sodium Chloride IV 05/12/19 08:38 100 mls INF CLARA Administration Protocol Per Protocol Sodium Chloride 1,000 mls @ 70 mls/hr 04/12/19 09:15 04/13/19 20:46 Normal Saline 0.9% IV 1,000 mls .[id number] CLARA Administration Norepinephrine Bitartrate 250 mls @ 0 mls/hr 04/12/19 10:37 04/13/19 09:37 Levophed IVPB 250 mls INF CLARA Administration Protocol Titrate Lorazepam 2 mg 04/12/19 08:38 04/13/19 04:01 Ativan SLOW IVP 05/12/19 08:38 2 mg Q1H PRN Administration Breakthrough agitation Methylprednisolone Sodium Succinate 20 mg 04/13/19 09:00 04/13/19 20:51 Solu-Medrol IVP 20 mg BID CLARA Administration Morphine Sulfate 2 mg 04/12/19 08:38 04/13/19 15:40 Morphine SLOW IVP 05/12/19 08:38 2 mg Q1H PRN Administration BREAKTHROUGH PAIN/Agitation Sodium Chloride 10 ml 04/12/19 09:00 04/13/19 20:51 Flush - Normal Saline IVF 10 ml Q12HR CLARA Administration - Exam General Appearance: ill appearing Eye: PERRL, anicteric sclera ENT: no oropharyngeal lesions, dry oral mucosa Neck: supple, no JVD Heart: RRR, no murmur Respiratory: no wheezes, no rales, rhonchi Gastrointestinal: soft, non-tender, non-distended, normal bowel sounds Extremities: no cyanosis, no edema Neurological: cranial nerve grossly intact, no focal deficits Hosp A/P (1) Acute respiratory failure with hypoxia Code(s): J96.01 - ACUTE RESPIRATORY FAILURE WITH HYPOXIA Status: Acute (2) Interstitial lung disease Code(s): J84.9 - INTERSTITIAL PULMONARY DISEASE, UNSPECIFIED Status: Chronic (3) Rheumatoid arthritis Code(s): M06.9 - RHEUMATOID ARTHRITIS, UNSPECIFIED Status: Chronic Qualifiers: Rheumatoid arthritis location: unspecified site (4) Hypotension Status: Resolved Qualifiers: Hypotension type: unspecified hypotension type Qualified Code(s): I95.9 - Hypotension, unspecified (5) DM type 2 (diabetes mellitus, type 2) Status: Chronic Qualifiers: Diabetes mellitus long-term insulin use: without terminal press operator use (6) CAD (coronary artery disease) Code(s): I25.10 - ATHSCL HEART DISEASE OF [place] CORONARY ARTERY W/O ANG PCTRS Status: Chronic Qualifiers: Coronary Disease-Associated Artery/Lesion type: bypass graft [place] vs. transplanted heart: [place] heart Associated angina: without angina Qualified Code(s): I25.810 - Atherosclerosis of coronary artery bypass graft(s) without angina pectoris (7) Dyslipidemia Code(s): E78.5 - HYPERLIPIDEMIA, UNSPECIFIED Status: Chronic (8) Sepsis Code(s): A41.9 - SEPSIS, UNSPECIFIED ORGANISM Status: Acute Qualifiers: Sepsis type: methicillin susceptible Staphylococcus aureus Sepsis acute organ dysfunction status: with acute organ dysfunction Acute respiratory failure type: with hypoxia Severe sepsis shock status: with septic shock (9) Bacteremia due to methicillin susceptible Staphylococcus aureus (MSSA) Code(s): R78.81 - BACTEREMIA Status: Acute - Plan is on cefepime and vanc, nebs, iv steroids has spinal decubitus in the mid thoracic area continue iv fluids, may taper and dc levophed for map of 60 RA labs, crp, whit with reflex discussed code status with daughter at bedside, she does not want cpr done and continue to see if she can come out of vent (04/12/2019) prognosis guarded, not sure if she will survive this admission.
[2019-04-14] MEDS: Vancomycin HCl 1 GM in Premix Bag 1 BAG IVPB SCH (02:56)
[2019-04-14] MEDS: Morphine 2 MG/ML SYRINGE SLOW IVP PRN (05:20)
[2019-04-14 06:54] LABS: Actual Bicarbonate (HCO3a) 19.9 mEq/L (22-28); Base Excess (BEa) -1.9 mEq/L (-2.0 to +3.0); Calcium, Ionized 1.11 mmol/L (1.12-1.30); Carboxyhemoglobin (COHb) 0.7 gm% (0.0-3.0); Potassium - ABG Lab 4.16 mmol/L (3.70-5.30); pH, Arterial 7.52 (7.35-7.45)
[2019-04-14 07:23] LABS: ALV-art Gradient 10.745 (0-20); CO2 Tension 25.1 mmHg (35.0-45.0); Puncture Site LRA
[2019-04-14] MEDS: Cefepime 1 GM in Sodium Chloride 0.9% 100 ML IVPB SCH (07:49)
[2019-04-14] MEDS: Famotidine/PF 20 mg/2ml Vial SLOW IVP SCH (07:49)
--- NOTE | 2019-04-14 08:13 | PRG ---
DATE OF SERVICE: 04/14/2019 TIME SPENT: 35 minutes of critical care time. SUBJECTIVE: The patient remains intubated on mechanical ventilation. She remains encephalopathic, not following commands for me. She is on spontaneous breathing trial this morning, but is somewhat tachypneic. OBJECTIVE: VITAL SIGNS: On exam, temperature is 97.9, pulse 96, blood pressure 139/73, and O2 saturation 98%. She is currently requiring no vasopressors. HEENT: Unremarkable except for eye deviation to the right. NECK: No adenopathy or JVD. CHEST: Inspiratory crackles diffusely. CARDIAC: S1 and S2, regular. ABDOMEN: Soft and nontender. EXTREMITIES: No edema. LABORATORY DATA: ABG; pH of 7.52, pCO2 of 25, pO2 of 129, that is on SIMV rate 12, tidal volume 400, PEEP 5, pressure 14, and FiO2 of 24%. IMAGING DATA: Her chest x-ray shows no acute changes. No other labs were done today. ASSESSMENT: 1. Staphylococcal sepsis likely from infected hardware in the back. 2. Acute respiratory failure, requiring mechanical ventilation. 3. Encephalopathy. PLAN: 1. Unfortunately, I do not think she is weanable until her encephalopathy has improved. I will go ahead and hold all sedative and pain medications and observe. If she were to need something, then I would consider Precedex. 2. Initiate enteral tube feeding. 3. Hopefully extubate when and if mental status improves, I will discuss with the patient's daughter. Job ID: [id number]
--- NOTE | 2019-04-14 08:32 | RAD ---
CHEST 1 VIEW: INDICATION: History of pneumonia. COMPARISON: Prior exam dated 04/13/2019. FINDINGS/IMPRESSION: There is improvement in the pulmonary vascular congestion. The patient remains intubated with a righ t IJ central venous catheter. Cardiomegaly persists. Small bilateral pleural effusions are similar appearing. No pneumothorax is evident. POS: BH
[2019-04-14] MEDS: methylPREDNISolone Sod Succ 40 MG VIAL IVP SCH (10:13)
[2019-04-14] MEDS: CEFAZOLIN 2 GM in Premix Bag 1 BAG IVPB SCH ×3 (10:13→23:42)
[2019-04-14] MEDS: Sodium Chloride 0.9% 1,000 ML IV SCH ×2 (13:26→20:02)
--- NOTE | 2019-04-14 13:35 | PDOC.HOSPP ---
- Subjective Encounter Date: 04/14/19 Encounter Time: 11:45 Subjective: on vent, not oriented but awakens easily, is off sedation daughter and son at bedside - Objective Vital Signs & Weight: Vital Signs (12 hours) Temp Pulse Resp BP Pulse Ox 04/14/19 13:00 98.1 F 04/14/19 12:00 21 H 04/14/19 10:34 99 157/85 H 04/14/19 10:31 104 H 23 H 99 04/14/19 10:00 23 H 04/14/19 08:00 19 04/14/19 07:54 98.5 F 04/14/19 06:43 88 116/59 L 04/14/19 06:41 100 24 H 98 04/14/19 06:00 32 H 04/14/19 04:00 97.9 F 26 H 04/14/19 02:38 79 141/70 H 04/14/19 02:00 26 H Weight Admit Weight 125 lb Weight 127 lb 3.307 oz Most Recent Monitor Data Heart Rate from ECG 105 NIBP 165/86 NIBP BP-Mean 112 Respiration from ECG 35 SpO2 100 I&O: 04/13/19 04/14/19 04/15/19 06:59 06:59 06:59 Intake Total 2418.6 2166.5 Output Total 509 395 150 Balance 1909.6 1771.5 -150 Result Diagrams: 04/13/19 04:01 04/13/19 04:01 Hospitalist ROS - Medication Medications: Active Medications Generic Name Dose Route Start Last Admin Trade Name Freq PRN Reason Stop Dose Admin Acetaminophen 650 mg 04/13/19 20:26 04/13/19 20:51 Tylenol Elixir PO 650 mg Q4H PRN Administration Headache/Fever/Mild Pain (1-3) Albuterol/Ipratropium 3 ml 04/12/19 18:30 04/14/19 10:31 Duoneb NEB 3 ml [id number] CLARA Administration Famotidine 20 mg 04/13/19 09:00 04/14/19 07:49 Pepcid SLOW IVP 20 mg QAM CLARA Administration Sodium Chloride 1,000 mls @ 70 mls/hr 04/12/19 09:15 04/14/19 13:26 Normal Saline 0.9% IV 1,000 mls .[id number] CLARA Administration Norepinephrine Bitartrate 250 mls @ 0 mls/hr 04/12/19 10:37 04/13/19 09:37 Levophed IVPB 250 mls INF CLARA Administration Protocol Titrate Cefazolin Sodium/Dextrose 2 gm 50 mls @ 100 mls/hr 04/14/19 08:00 04/14/19 10 :13 / Device IVPB 50 mls [id number],[id number] CLARA Administration Dexmedetomidine HCl 200 mcg/ 50 mls @ 0 mls/hr 04/14/19 12:30 04/14/19 13:26 Sodium Chloride IVPB 50 mls INF CLARA Administration Protocol Titrate Methylprednisolone Sodium Succinate 20 mg 04/14/19 09:00 04/14/19 10:13 Solu-Medrol IVP 20 mg DAILY CLARA Administration Sodium Chloride 10 ml 04/12/19 09:00 04/14/19 07:52 Flush - Normal Saline IVF 10 ml Q12HR CLARA Administration - Exam General Appearance: ill appearing Eye: PERRL, anicteric sclera ENT: no oropharyngeal lesions, dry oral mucosa Neck: supple, no JVD Heart: RRR, no murmur Respiratory: no wheezes, no rales, rhonchi Gastrointestinal: soft, non-tender, non-distended, normal bowel sounds Extremities: no cyanosis, 1+ LE edema Neurological: cranial nerve grossly intact, no focal deficits Hosp A/P (1) Acute respiratory failure with hypoxia Code(s): J96.01 - ACUTE RESPIRATORY FAILURE WITH HYPOXIA Status: Acute (2) Interstitial lung disease Code(s): J84.9 - INTERSTITIAL PULMONARY DISEASE, UNSPECIFIED Status: Chronic (3) Rheumatoid arthritis Code(s): M06.9 - RHEUMATOID ARTHRITIS, UNSPECIFIED Status: Chronic Qualifiers: Rheumatoid arthritis location: unspecified site (4) Hypotension Status: Resolved Qualifiers: Hypotension type: unspecified hypotension type Qualified Code(s): I95.9 - Hypotension, unspecified (5) DM type 2 (diabetes mellitus, type 2) Status: Chronic Qualifiers: Diabetes mellitus fci insulin use: without termite control servicer use (6) CAD (coronary artery disease) Code(s): I25.10 - ATHSCL HEART DISEASE OF [place] CORONARY ARTERY W/O ANG PCTRS Status: Chronic Qualifiers: Coronary Disease-Associated Artery/Lesion type: bypass graft [place] vs. transplanted heart: [place] heart Associated angina: without angina Qualified Code(s): I25.810 - Atherosclerosis of coronary artery bypass graft(s) without angina pectoris (7) Dyslipidemia Code(s): E78.5 - HYPERLIPIDEMIA, UNSPECIFIED Status: Chronic (8) Sepsis Code(s): A41.9 - SEPSIS, UNSPECIFIED ORGANISM Status: Acute Qualifiers: Sepsis type: methicillin susceptible Staphylococcus aureus Sepsis acute organ dysfunction status: with acute organ dysfunction Acute respiratory failure type: with hypoxia Severe sepsis shock status: with septic shock (9) Bacteremia due to methicillin susceptible Staphylococcus aureus (MSSA) Code(s): R78.81 - BACTEREMIA Status: Acute - Plan is on ancef tid, nebs, iv steroids has spinal decubitus in the mid thoracic area, likely contributing to current bacteremia continue iv fluids, is slowly third spacing. RA labs, crp, whit with reflex discussed code status with daughter at bedside, she does not want cpr done and continue to see if she can come out of vent (04/12/2019) prognosis guarded, not sure if she will survive this admission. on precedex d/w daughter and son at bedside, are aware of poor prognosis
[2019-04-14] MEDS ORDERED: Pancrelipase DR 12000 1 CAP FS PRN (18:46)
[2019-04-14] MEDS ORDERED: Sodium Bicarbonate Tab 325 MG TAB PER TUBE PRN (18:46)
[2019-04-15 04:30] LABS: #Lymphocytes 0.4 thou/uL (1.20-3.40); #Monocytes 0.5 thou/uL (0.11-0.59); #Neutrophils 8.9 thou/uL (1.40-6.50); %Basophils 0.1 % (0.0-1.0); %Eosinophils 0.1 % (0.0-10.0); %Lymphocytes 4.2 % (21.0-51.0); %Monocytes 4.9 % (0.0-10.0); %Neutrophils 90.8 % (42.0-75.0); Hemoglobin 9.9 g/dL (12.0-16.0); Mean Corpuscular HGB CONC 32.2 g/dL (32.0-36.0); Mean Corpuscular Hemoglobin 32.1 pg (27.0-31.0); Mean Corpuscular Volume 99.8 fL (78.0-98.0); Mean Platelet Volume 9.1 fL (7.4-10.4); Platelet Count 203 thou/uL (130-400); RBC Distribution Width 13.8 % (11.5-14.5); Red Blood Cell (RBC) Count 3.09 mill/uL (4.20-5.40); White Blood Cell (WBC) Count 9.8 thou/uL (4.8-10.8)
[2019-04-15 04:41] LABS: Anion Gap 6 mmol/L (10-20); BUN (Urea Nitrogen) 31 mg/dL (9.8-20.1); Calc. Creatinine Clearance 49 mL/min (70-130); Calcium 8.2 mg/dL (7.8-10.44); Carbon Dioxide 24 mmol/L (23-31); Chloride 110 mmol/L (98-107); Estimated GFR-MDRD 76; Glucose 130 mg/dL (83-110); Potassium 4.2 mmol/L (3.5-5.1); Sodium 136 mmol/L (136-145)
[2019-04-15 07:10] LABS: Actual Bicarbonate (HCO3a) 18.2 mEq/L (22-28); Base Excess (BEa) -3.7 mEq/L (-2.0 to +3.0); Calcium, Ionized 1.14 mmol/L (1.12-1.30); Carboxyhemoglobin (COHb) 0.5 gm% (0.0-3.0); Hemoglobin (Hb) 10.7 g/dL (12.0-16.0); O2 Tension (PaO2) 113.7 mmHg (> 60.0); Potassium - ABG Lab 4.23 mmol/L (3.70-5.30)
[2019-04-15 07:12] LABS: Puncture Site LRA
[2019-04-15] MEDS: Acetaminophen 650 MG/20.3 ML UDCUP PO PRN ×2 (07:32→17:16)
--- NOTE | 2019-04-15 07:32 | RAD ---
CHEST 1 VIEW: Date: 04/15/19 INDICATION: Pneumonia. COMPARISON: Prior exam dated 04/14/19. IMPRESSION: There is persistent cardiomegaly with pulmonary vascular congestion. Patchy interstitial and air spac e opacities persist. Patient remains intubated with ET tube approximately 9 mm above the level of the tom. Small bilateral pleural effusions persist. No pneumothorax is evident. Right IJ central veno us catheter is stable. Gastric catheter is unchanged. POS: BH
[2019-04-15] MEDS: methylPREDNISolone Sod Succ 40 MG VIAL IVP SCH (07:59)
[2019-04-15] MEDS: Famotidine/PF 20 mg/2ml Vial SLOW IVP SCH (07:59)
[2019-04-15] MEDS: CEFAZOLIN 2 GM in Premix Bag 1 BAG IVPB SCH ×2 (07:59→17:16)
[2019-04-15] MEDS: Sodium Chloride 0.9% 1,000 ML IV SCH ×2 (11:03→17:21)
--- NOTE | 2019-04-15 12:39 | PDOC.HOSPP ---
- Subjective Encounter Date: 04/15/19 Encounter Time: 10:25 Subjective: on vent, sedated not in distress - Objective Vital Signs & Weight: Vital Signs (12 hours) Temp Pulse Resp BP Pulse Ox 04/15/19 12:00 20 04/15/19 10:04 67 04/15/19 10:00 16 04/15/19 08:00 98 F 28 H 96 04/15/19 07:00 57 L 04/15/19 06:00 38 H 04/15/19 04:00 98.2 F 24 H 04/15/19 02:24 59 L 135/74 04/15/19 02:00 28 H Weight Admit Weight 125 lb Weight 129 lb 6.581 oz Most Recent Monitor Data Heart Rate from ECG 67 NIBP 113/86 NIBP BP-Mean 95 Respiration from ECG 16 SpO2 100 I&O: 04/14/19 04/15/19 04/16/19 06:59 06:59 06:59 Intake Total 2166.5 1890.4 60 Output Total 395 525 115 Balance 1771.5 1365.4 -55 Result Diagrams: 04/15/19 04:00 04/15/19 04:00 Hospitalist ROS - Medication Medications: Active Medications Generic Name Dose Route Start Last Admin Trade Name Freq PRN Reason Stop Dose Admin Acetaminophen 650 mg 04/13/19 20:26 04/15/19 07:32 Tylenol Elixir PO 650 mg Q4H PRN Administration Headache/Fever/Mild Pain (1-3) Albuterol/Ipratropium 3 ml 04/12/19 18:30 04/15/19 10:03 Duoneb NEB 3 ml [id number] CLARA Administration Famotidine 20 mg 04/13/19 09:00 04/15/19 07:59 Pepcid SLOW IVP 20 mg QAM CLARA Administration Sodium Chloride 1,000 mls @ 70 mls/hr 04/12/19 09:15 04/15/19 11:03 Normal Saline 0.9% IV Not Given .[id number] CLARA Norepinephrine Bitartrate 250 mls @ 0 mls/hr 04/12/19 10:37 04/13/19 09:37 Levophed IVPB 250 mls INF CLARA Administration Protocol Titrate Cefazolin Sodium/Dextrose 2 gm 50 mls @ 100 mls/hr 04/14/19 08:00 04/15/19 07 :59 / Device IVPB 50 mls 0800,1600,2359 CLARA Administration Dexmedetomidine HCl 200 mcg/ 50 mls @ 0 mls/hr 04/14/19 12:30 04/15/19 08:00 Sodium Chloride IVPB 50 mls INF CLARA Administration Protocol Titrate Methylprednisolone Sodium Succinate 20 mg 04/14/19 09:00 04/15/19 07:59 Solu-Medrol IVP 20 mg DAILY CLARA Administration Sodium Chloride 10 ml 04/12/19 09:00 04/15/19 08:26 Flush - Normal Saline IVF 10 ml Q12HR CLARA Administration - Exam General Appearance: ill appearing Eye: PERRL, anicteric sclera ENT: no oropharyngeal lesions, dry oral mucosa Neck: supple, no JVD Heart: RRR, no murmur Respiratory: no wheezes, rales, rhonchi Gastrointestinal: soft, non-tender, non-distended, normal bowel sounds Extremities: no cyanosis, 1+ LE edema Neurological: cranial nerve grossly intact, no focal deficits Hosp A/P (1) Acute respiratory failure with hypoxia Code(s): J96.01 - ACUTE RESPIRATORY FAILURE WITH HYPOXIA Status: Acute (2) Interstitial lung disease Code(s): J84.9 - INTERSTITIAL PULMONARY DISEASE, UNSPECIFIED Status: Chronic (3) Rheumatoid arthritis Code(s): M06.9 - RHEUMATOID ARTHRITIS, UNSPECIFIED Status: Chronic Qualifiers: Rheumatoid arthritis location: unspecified site (4) Hypotension Status: Resolved Qualifiers: Hypotension type: unspecified hypotension type Qualified Code(s): I95.9 - Hypotension, unspecified (5) DM type 2 (diabetes mellitus, type 2) Status: Chronic Qualifiers: Diabetes mellitus shirt hemmer insulin use: without shirt hemmer use (6) CAD (coronary artery disease) Code(s): I25.10 - ATHSCL HEART DISEASE OF [place] CORONARY ARTERY W/O ANG PCTRS Status: Chronic Qualifiers: Coronary Disease-Associated Artery/Lesion type: bypass graft [place] vs. transplanted heart: [place] heart Associated angina: without angina Qualified Code(s): I25.810 - Atherosclerosis of coronary artery bypass graft(s) without angina pectoris (7) Dyslipidemia Code(s): E78.5 - HYPERLIPIDEMIA, UNSPECIFIED Status: Chronic (8) Sepsis Code(s): A41.9 - SEPSIS, UNSPECIFIED ORGANISM Status: Acute Qualifiers: Sepsis type: methicillin susceptible Staphylococcus aureus Sepsis acute organ dysfunction status: with acute organ dysfunction Acute respiratory failure type: with hypoxia Severe sepsis shock status: with septic shock (9) Bacteremia due to methicillin susceptible Staphylococcus aureus (MSSA) Code(s): R78.81 - BACTEREMIA Status: Acute - Plan is on ancef tid, nebs, iv steroids has spinal decubitus in the mid thoracic area, likely contributing to current bacteremia continue iv fluids, is slowly third spacing. RA labs, crp, whit with reflex results are pending discussed code status with daughter at bedside, she does not want cpr done and continue to see if she can come out of vent (04/12/2019) prognosis guarded, not sure if she will survive this admission. on precedex d/w daughter at bedside, are aware of poor prognosis
--- NOTE | 2019-04-15 17:06 | PRG ---
DATE OF SERVICE: 04/15/2019 SUBJECTIVE: Dyana Mosqueda remains mechanically ventilated. She is not following commands. OBJECTIVE: VITAL SIGNS: Heart rate in the 60s, respiratory rate in 20s, blood pressure 113/86. LUNGS: Clear. HEART: Regular rhythm. ABDOMEN: Soft without guarding. EXTREMITIES: Without edema. LABORATORY DATA: White count is 9.8, hemoglobin 9.9, platelets 203,000. Sodium 136, potassium 4.2, chloride 110, bicarb 24, BUN 31, and creatinine 0.72. The pH is 7.50, pCO2 is 24, and pO2 is 113. IMPRESSION: 1. Respiratory failure. 2. Staphylococcus sepsis. 3. Encephalopathy. PLAN: Until she is following commands, she is not weanable. We will continue antimicrobial care, mechanical ventilation, and nutritional support. CRITICAL CARE TIME: 30 minutes. Job ID: [id number]
[2019-04-15] MEDS: Morphine 2 MG/ML SYRINGE SLOW IVP PRN (19:48)
[2019-04-15] MEDS ORDERED: Morphine 2 MG/ML SYRINGE SLOW IVP PRN (22:07)
[2019-04-16] MEDS: CEFAZOLIN 2 GM in Premix Bag 1 BAG IVPB SCH ×3 (00:21→15:41)
[2019-04-16] MEDS: Morphine 2 MG/ML SYRINGE SLOW IVP PRN ×3 (00:22→17:55)
[2019-04-16] MEDS: Acetaminophen 650 MG/20.3 ML UDCUP PO PRN ×2 (00:22→17:36)
[2019-04-16 04:11] LABS: #Lymphocytes 0.7 thou/uL (1.20-3.40); #Monocytes 0.5 thou/uL (0.11-0.59); #Neutrophils 9.5 thou/uL (1.40-6.50); %Basophils 0.1 % (0.0-1.0); %Eosinophils 0.1 % (0.0-10.0); %Lymphocytes 6.8 % (21.0-51.0); %Monocytes 4.7 % (0.0-10.0); %Neutrophils 88.3 % (42.0-75.0); Hemoglobin 10.3 g/dL (12.0-16.0); Mean Corpuscular HGB CONC 33.3 g/dL (32.0-36.0); Mean Platelet Volume 9.1 fL (7.4-10.4); Platelet Count 197 thou/uL (130-400); RBC Distribution Width 13.9 % (11.5-14.5); Red Blood Cell (RBC) Count 3.13 mill/uL (4.20-5.40); White Blood Cell (WBC) Count 10.7 thou/uL (4.8-10.8)
[2019-04-16 04:43] LABS: Anion Gap 10 mmol/L (10-20); BUN (Urea Nitrogen) 26 mg/dL (9.8-20.1); Calc. Creatinine Clearance 53 mL/min (70-130); Calcium 8.1 mg/dL (7.8-10.44); Carbon Dioxide 21 mmol/L (23-31); Chloride 111 mmol/L (98-107); Estimated GFR-MDRD 82; Glucose 120 mg/dL (83-110); Potassium 3.8 mmol/L (3.5-5.1); Sodium 138 mmol/L (136-145)
[2019-04-16 07:06] LABS: Actual Bicarbonate (HCO3a) 17.8 mEq/L (22-28); Base Excess (BEa) -5.4 mEq/L (-2.0 to +3.0); CO2 Tension 27.3 mmHg (35.0-45.0); Calcium, Ionized 1.16 mmol/L (1.12-1.30); Carboxyhemoglobin (COHb) 0.3 gm% (0.0-3.0); Hemoglobin (Hb) 10.8 g/dL (12.0-16.0); O2 Tension (PaO2) 98.4 mmHg (> 60.0); Potassium - ABG Lab 3.67 mmol/L (3.70-5.30); pH, Arterial 7.43 (7.35-7.45)
[2019-04-16 07:07] LABS: Puncture Site RR
[2019-04-16 07:08] LABS: ALV-art Gradient 38.595 (0-20)
[2019-04-16] MEDS: Famotidine/PF 20 mg/2ml Vial SLOW IVP SCH (08:26)
[2019-04-16] MEDS: methylPREDNISolone Sod Succ 40 MG VIAL IVP SCH (08:26)
[2019-04-16] MEDS: Sodium Chloride 0.9% 1,000 ML IV SCH ×2 (08:42→20:40)
--- NOTE | 2019-04-16 09:24 | RAD ---
CHEST 1 VIEW: INDICATION: Pneumonia. COMPARISON: Prior exam of 04/07/2019. FINDINGS: Worsening cardiomegaly and pulmonary vascular congestion with bilateral pleural effusions, right grea ter than left. There is increasing opacity in both lung bases suspicious for atelectasis; however, p neumonia is not excluded. No pneumothorax is evident. IMPRESSION: 1. Worsening volume overload or congestive heart failure. 2. Bibasilar opacities may reflect atelectasis; however, a component of pneumonia is not excluded. 3. Endotracheal tube and right internal jugular central venous catheter are unchanged. POS: BH
--- NOTE | 2019-04-16 10:27 | PRG ---
DATE OF SERVICE: 04/16/2019 Thirty five minutes critical care time. SUBJECTIVE: The patient remains intubated on mechanical ventilation. She is on a Precedex drip. She will wake up and follow all commands. Her daughter is at the bedside. OBJECTIVE: VITAL SIGNS: Her temperature is 98.5, pulse 63, blood pressure 164/109, and O2 saturation 100%. HEENT: Unremarkable. NECK: No adenopathy or JVD. LUNGS: Diminished breath sounds bilaterally. No crackles. CARDIAC: S1 and S2. Regular. ABDOMEN: Soft. EXTREMITIES: No edema. LABORATORY DATA: A pH 7.43, pCO2 of 27, pO2 of 98 on SIMV rate 12, tidal volume 400, PEEP 5, pressure support 12, and FiO2 of 24%. White blood cell count 10.7, hematocrit 31, and platelet count 197. Chest x-ray shows no acute changes. ASSESSMENT: 1. Acute respiratory failure requiring mechanical ventilation. 2. Sepsis secondary to Staphylococcal bacteremia from infected area on her back. 3. Encephalopathy, which is improved. PLAN: She will be extubated and we will observe her. I will go ahead and stop the IV steroids. She continues on IV antibiotics. Job ID: [id number]
--- NOTE | 2019-04-16 14:16 | PDOC.HOSPP ---
- Subjective Encounter Date: 04/16/19 Encounter Time: 07:50 Subjective: is waking up, daughter at bedside trying to communicate with her - Objective Vital Signs & Weight: Vital Signs (12 hours) Temp Pulse Resp BP Pulse Ox 04/16/19 12:00 98.2 F 04/16/19 10:10 99 04/16/19 10:00 24 H 04/16/19 09:40 67 130/95 H 04/16/19 08:00 98.7 F 20 96 04/16/19 06:50 57 L 164/109 H 04/16/19 06:00 23 H 04/16/19 04:00 98.5 F 18 04/16/19 02:28 58 L 146/76 H Weight Admit Weight 125 lb Weight 133 lb 13.129 oz Most Recent Monitor Data Heart Rate from ECG 69 NIBP 186/97 NIBP BP-Mean 126 Respiration from ECG 24 SpO2 100 I&O: 04/15/19 04/16/19 04/17/19 06:59 06:59 06:59 Intake Total 1890.4 2800 197 Output Total 525 840 830 Balance 1365.4 1960 -633 Result Diagrams: 04/16/19 03:45 04/16/19 03:45 Hospitalist ROS - Medication Medications: Active Medications Generic Name Dose Route Start Last Admin Trade Name Butchq PRN Reason Stop Dose Admin Acetaminophen 650 mg 04/13/19 20:26 04/16/19 00:22 Tylenol Elixir PO 650 mg Q4H PRN Administration Headache/Fever/Mild Pain (1-3) Albuterol/Ipratropium 3 ml 04/12/19 18:30 04/16/19 09:43 Duoneb NEB 3 ml [id number] CLARA Administration Famotidine 20 mg 04/13/19 09:00 04/16/19 08:26 Pepcid SLOW IVP 20 mg QAM CLARA Administration Sodium Chloride 1,000 mls @ 70 mls/hr 04/12/19 09:15 04/16/19 08:42 Normal Saline 0.9% IV 1,000 mls .[id number] CLARA Administration Cefazolin Sodium/Dextrose 2 gm 50 mls @ 100 mls/hr 04/14/19 08:00 04/16/19 08 :26 / Device IVPB 50 mls 0800,1600,2359 CLARA Administration Morphine Sulfate 2 mg 04/15/19 12:36 04/16/19 14:12 Morphine SLOW IVP 2 mg Q4H PRN Administration Pain Morphine Sulfate 2 mg 04/15/19 22:07 04/15/19 22:15 Morphine SLOW IVP 04/18/19 22:08 2 mg ONE PRN Administration Breakthrough Pain Sodium Chloride 10 ml 04/12/19 09:00 04/16/19 08:27 Flush - Normal Saline IVF 10 ml Q12HR CLARA Administration - Exam General Appearance: ill appearing Eye: PERRL, anicteric sclera ENT: no oropharyngeal lesions, dry oral mucosa Neck: supple, symmetric Heart: no murmur, no gallops Respiratory: no wheezes, no rales, rhonchi Gastrointestinal: soft, non-tender, non-distended, normal bowel sounds Extremities: no cyanosis, no edema Neurological: cranial nerve grossly intact, no focal deficits Hosp A/P (1) Sepsis Code(s): A41.9 - SEPSIS, UNSPECIFIED ORGANISM Status: Acute Qualifiers: Sepsis type: methicillin susceptible Staphylococcus aureus Sepsis acute organ dysfunction status: with acute organ dysfunction Acute respiratory failure type: with hypoxia Severe sepsis shock status: with septic shock (2) Bacteremia due to methicillin susceptible Staphylococcus aureus (MSSA) Code(s): R78.81 - BACTEREMIA Status: Acute (3) Acute respiratory failure with hypoxia Code(s): J96.01 - ACUTE RESPIRATORY FAILURE WITH HYPOXIA Status: Acute (4) Interstitial lung disease Code(s): J84.9 - INTERSTITIAL PULMONARY DISEASE, UNSPECIFIED Status: Chronic (5) Rheumatoid arthritis Code(s): M06.9 - RHEUMATOID ARTHRITIS, UNSPECIFIED Status: Chronic Qualifiers: Rheumatoid arthritis location: unspecified site (6) Hypotension Status: Resolved Qualifiers: Hypotension type: unspecified hypotension type Qualified Code(s): I95.9 - Hypotension, unspecified (7) DM type 2 (diabetes mellitus, type 2) Status: Chronic Qualifiers: Diabetes mellitus coroner insulin use: without residential use (8) CAD (coronary artery disease) Code(s): I25.10 - ATHSCL HEART DISEASE OF [place] CORONARY ARTERY W/O ANG PCTRS Status: Chronic Qualifiers: Coronary Disease-Associated Artery/Lesion type: bypass graft [place] vs. transplanted heart: [place] heart Associated angina: without angina Qualified Code(s): I25.810 - Atherosclerosis of coronary artery bypass graft(s) without angina pectoris (9) Dyslipidemia Code(s): E78.5 - HYPERLIPIDEMIA, UNSPECIFIED Status: Chronic - Plan is on ancef tid, nebs, got extubated this am 04/16/2019 has spinal decubitus in the mid thoracic area, likely contributing to current bacteremia continue iv fluids, is slowly third spacing. RA labs, whit with reflex results are pending discussed code status with daughter at bedside, she does not want cpr done and continue to see if she can come out of vent (04/12/2019) prognosis guarded, not sure if she will survive this admission. on precedex d/w daughter at bedside, are aware of poor prognosis.
[2019-04-16] MEDS ORDERED: Morphine 2 MG/ML SYRINGE SLOW IVP SCH (15:00)
[2019-04-16 15:47] LABS: ANA Symphony (Qualitative) Negative (Negative); ANA Symphony (Quantitative) 0.2 Ratio (< 0.7 Negative); EliA RAS New Method **** NEW METHOD ****; dsDNA IgG Antibody 0.5 IU/mL (<10 Negative)
[2019-04-16] MEDS ORDERED: Labetalol HCl 100 MG/20 ML VIAL SLOW IVP PRN (17:51)
[2019-04-16] MEDS: hydrALAZINE 20 MG/ML VIAL SLOW IVP PRN (20:40)
[2019-04-17] MEDS: CEFAZOLIN 2 GM in Premix Bag 1 BAG IVPB SCH ×4 (00:06→23:22)
[2019-04-17] MEDS: hydrALAZINE 20 MG/ML VIAL SLOW IVP PRN ×2 (02:24→13:21)
[2019-04-17] MEDS: Morphine 2 MG/ML SYRINGE SLOW IVP PRN ×4 (02:32→23:23)
[2019-04-17 03:02] LABS: Anion Gap 10 mmol/L (10-20); BUN (Urea Nitrogen) 13 mg/dL (9.8-20.1); Calc. Creatinine Clearance 64 mL/min (70-130); Calcium 8.2 mg/dL (7.8-10.44); Carbon Dioxide 27 mmol/L (23-31); Chloride 103 mmol/L (98-107); Estimated GFR-MDRD Greater than 90; Glucose 74 mg/dL (83-110); Potassium 3.1 mmol/L (3.5-5.1); Sodium 137 mmol/L (136-145)
[2019-04-17 03:25] LABS: Band 2 % (5-11); Eosinophils 1 % (0-10); Hemoglobin 12.4 g/dL (12.0-16.0); Lymphocytes 4 % (21-51); MDiff Complete? YES; Mean Corpuscular HGB CONC 33.6 g/dL (32.0-36.0); Mean Corpuscular Hemoglobin 33.1 pg (27.0-31.0); Mean Corpuscular Volume 98.5 fL (78.0-98.0); Monocytes 4 % (0-10); Neutrophil 89 % (42-75); Platelet Count 240 thou/uL (130-400); Platelet Morphology Comment Appears Adequate; Red Blood Cell (RBC) Count 3.73 mill/uL (4.20-5.40); White Blood Cell (WBC) Count 12.5 thou/uL (4.8-10.8)
[2019-04-17 06:14] VITALS: BMI 28.1
--- NOTE | 2019-04-17 08:02 | RAD ---
CHEST 1 VIEW: INDICATION: Pneumonia. COMPARISON: Prior exam dated 04/16/2019. IMPRESSION: The patient has been intervally extubated with removal of the gastric catheter. The right internal j ugular central venous catheter is stable. Cardiomegaly with pulmonary vascular congestion and bilate ral pleural effusions persist. Large bolus disease involving the lingula is stable. Chronic osseous changes and spine instrumentation is stable. Vascular calcifications of a tortuous aorta are again noted. POS: BH
[2019-04-17] MEDS: Famotidine/PF 20 mg/2ml Vial SLOW IVP SCH (08:13)
--- NOTE | 2019-04-17 10:23 | PRG ---
DATE OF SERVICE: 04/17/2019 SUBJECTIVE: Ms. Mosqueda was extubated yesterday. Her blood pressure has been difficult to control overnight. She is also generally not thriving very well. OBJECTIVE: VITAL SIGNS: Temperature is 98.1, pulse 99, blood pressure 164/91, and O2 saturation 100%. HEENT: Unremarkable. NECK: No adenopathy or JVD. LUNGS: Coarse breath sounds. CARDIAC: S1 and S2. Regular. ABDOMEN: Soft. EXTREMITIES: No edema. LABORATORY DATA: White blood cell count 12.5, hematocrit 36.7, and platelet count 240. Sodium 137, potassium 3.1, chloride 103, CO2 of 27, BUN 13, creatinine 0.6, and glucose 74. Chest x-ray demonstrates bilateral lower lobe atelectasis. ASSESSMENT: 1. Sepsis syndrome/infection. Previous back hardware. 2. Status post acute respiratory failure requiring mechanical ventilation. 3. Encephalopathy. PLAN: The family is wanting to transition to comfort measures. I confirmed DNR status with the patient's daughter. There are no plans to reintubate or start any type of vasopressor therapy. Hospice will see her today. Job ID: [id number]
--- NOTE | 2019-04-17 11:28 | PDOC.HOSPP ---
- Subjective Encounter Date: 04/17/19 Encounter Time: 10:00 Subjective: DNR, Extubated to go to hospice. - Objective Vital Signs & Weight: Vital Signs (12 hours) Temp Pulse Resp BP Pulse Ox 04/17/19 07:51 99 04/17/19 07:48 100 04/17/19 07:47 94 30 H 04/17/19 07:00 98.1 F 04/17/19 04:00 98.2 F 04/17/19 03:38 98 04/17/19 02:24 110 H 190/97 H 04/17/19 00:00 98.2 F Weight Admit Weight 125 lb Weight 134 lb 11.239 oz Most Recent Monitor Data Heart Rate from ECG 90 NIBP 161/88 NIBP BP-Mean 112 Respiration from ECG 34 SpO2 100 I&O: 04/16/19 04/17/19 04/18/19 06:59 06:59 06:59 Intake Total 2800 1677 Output Total 840 1183 670 Balance 1960 -0978 -670 Result Diagrams: 04/17/19 02:25 04/17/19 02:25 Hospitalist ROS - Medication Medications: Active Medications Generic Name Dose Route Start Last Admin Trade Name Freq PRN Reason Stop Dose Admin Acetaminophen 650 mg 04/13/19 20:26 04/16/19 17:36 Tylenol Elixir PO 650 mg Q4H PRN Administration Headache/Fever/Mild Pain (1-3) Albuterol/Ipratropium 3 ml 04/12/19 18:30 04/17/19 07:47 Duoneb NEB 3 ml [id number] CLARA Administration Famotidine 20 mg 04/13/19 09:00 04/17/19 08:13 Pepcid SLOW IVP 20 mg QAM CLARA Administration Hydralazine HCl 20 mg 04/16/19 20:31 04/17/19 02:24 Apresoline SLOW IVP 20 mg Q4H PRN Administration SBP Greater Than 180 Sodium Chloride 1,000 mls @ 70 mls/hr 04/12/19 09:15 04/16/19 20:40 Normal Saline 0.9% IV 1,000 mls .[id number] CLARA Administration Cefazolin Sodium/Dextrose 2 gm 50 mls @ 100 mls/hr 04/14/19 08:00 04/17/19 08 :13 / Device IVPB 50 mls 0800,1600,2359 CLARA Administration Labetalol HCl 40 mg 04/16/19 17:51 04/16/19 17:58 Normodyne SLOW IVP 40 mg Q2H PRN Administration SBP>180 Morphine Sulfate 2 mg 04/15/19 12:36 04/17/19 02:32 Morphine SLOW IVP 2 mg Q4H PRN Administration Pain Sodium Chloride 10 ml 04/12/19 09:00 04/17/19 08:13 Flush - Normal Saline IVF 10 ml Q12HR CLARA Administration - Exam General Appearance: ill appearing (Keeps her eyes open, responsive, not following commands.) Neck: no JVD Heart: RRR Respiratory: rhonchi Gastrointestinal: soft Extremities: no edema Hosp A/P (1) Acute respiratory failure with hypoxia Code(s): J96.01 - ACUTE RESPIRATORY FAILURE WITH HYPOXIA Status: Acute (2) Bacteremia due to methicillin susceptible Staphylococcus aureus (MSSA) Code(s): R78.81 - BACTEREMIA Status: Acute (3) Sepsis Code(s): A41.9 - SEPSIS, UNSPECIFIED ORGANISM Status: Acute Qualifiers: Sepsis type: methicillin susceptible Staphylococcus aureus Sepsis acute organ dysfunction status: with acute organ dysfunction Acute respiratory failure type: with hypoxia Severe sepsis shock status: with septic shock (4) CAD (coronary artery disease) Code(s): I25.10 - ATHSCL HEART DISEASE OF [place] CORONARY ARTERY W/O ANG PCTRS Status: Chronic Qualifiers: Coronary Disease-Associated Artery/Lesion type: bypass graft [place] vs. transplanted heart: [place] heart Associated angina: without angina Qualified Code(s): I25.810 - Atherosclerosis of coronary artery bypass graft(s) without angina pectoris (5) DM type 2 (diabetes mellitus, type 2) Status: Chronic Qualifiers: Diabetes mellitus watermaster insulin use: without fci use (6) Dyslipidemia Code(s): E78.5 - HYPERLIPIDEMIA, UNSPECIFIED Status: Chronic (7) Interstitial lung disease Code(s): J84.9 - INTERSTITIAL PULMONARY DISEASE, UNSPECIFIED Status: Chronic (8) Rheumatoid arthritis Code(s): M06.9 - RHEUMATOID ARTHRITIS, UNSPECIFIED Status: Chronic Qualifiers: Rheumatoid arthritis location: unspecified site - Plan Patient is currently extubated...DNR . Awaiting hospice. Continue supportive therapy.
--- NOTE | 2019-04-17 14:51 | DIS ---
DATE OF ADMISSION: 04/12/2019 DATE OF DISCHARGE: 04/17/2019 ADMITTING DIAGNOSES: 1. Hospital acquired pneumonia with respiratory failure. 2. Hypertension. 3. Congestive heart failure. DISCHARGE DIAGNOSES: 1. Hospital acquired pneumonia with respiratory failure. 2. Hypertension. 3. Congestive heart failure. 4. Sepsis with methicillin-sensitive Staphylococcus aureus bacteremia. 5. Interstitial lung disease. 6. Rheumatoid arthritis. 7. Diabetes mellitus. 8. Coronary artery disease. 9. Dyslipidemia. 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 Dr. Higginbotham. 2. Marleni Chakraborty. PROCEDURES: Chest x-ray. CT angiogram of the chest. Abdomen and pelvis CT. Thoracic spine CT. Mechanical ventilation with endotracheal intubation. COURSE OF HOSPITALIZATION: The patient's condition deteriorated. Her prognosis was found to be very poor. She was extubated and she is currently within hospice evaluation. For physical examination today, please see patient's medical record progress note section. Discharge time 34 minutes. The patient is to be discharged to hospice. Job ID: [id number]
[2019-04-17] MEDS: Sodium Chloride 0.9% 1,000 ML IV SCH ×2 (20:24→23:27)
[2019-04-18] MEDS: hydrALAZINE 20 MG/ML VIAL SLOW IVP PRN (04:45)
[2019-04-18] MEDS: Morphine 2 MG/ML SYRINGE SLOW IVP PRN ×4 (05:57→21:25)
[2019-04-18 06:41] LABS: Chloride 102 mmol/L (98-107); Sodium 136 mmol/L (136-145)
[2019-04-18 06:42] LABS: Calcium 8.2 mg/dL (7.8-10.44); Glucose 62 mg/dL (83-110)
[2019-04-18 06:44] LABS: Anion Gap 13 mmol/L (10-20); Carbon Dioxide 24 mmol/L (23-31)
[2019-04-18 06:45] LABS: Calc. Creatinine Clearance 68 mL/min (70-130); Estimated GFR-MDRD Greater than 90
[2019-04-18 06:46] LABS: BUN (Urea Nitrogen) 15 mg/dL (9.8-20.1)
[2019-04-18 06:47] LABS: Potassium 2.9 mmol/L (3.5-5.1)
[2019-04-18] MEDS ORDERED: Potassium Chloride 40 MEQ in Sodium Chloride 0.9% 250 ML 250 ML IVPB SCH (07:30)
[2019-04-18] MEDS: CEFAZOLIN 2 GM in Premix Bag 1 BAG IVPB SCH ×2 (08:23→15:42)
[2019-04-18] MEDS: Famotidine/PF 20 mg/2ml Vial SLOW IVP SCH (08:25)
--- NOTE | 2019-04-18 12:43 | PDOC.HOSPP ---
- Subjective Encounter Date: 04/18/19 Encounter Time: 12:43 Subjective: "I'm fine" weakly - Objective Vital Signs & Weight: Vital Signs (12 hours) Temp Pulse Resp BP BP BP Pulse Ox 04/18/19 10:20 104 H 16 98 04/18/19 08:00 96 04/18/19 07:50 97.8 F 118 H 16 153/81 H 96 04/18/19 07:04 95 04/18/19 07:03 107 H 16 95 04/18/19 04:55 160/72 H 04/18/19 04:45 98 180/81 H 04/18/19 04:31 98 20 180/81 H 93 L 04/18/19 02:02 106 H 18 95 Weight Admit Weight 125 lb Weight 134 lb 11.239 oz Most Recent Monitor Data Heart Rate from ECG 102 NIBP 127/60 NIBP BP-Mean 82 Respiration from ECG 35 SpO2 100 I&O: 04/17/19 04/18/19 04/19/19 06:59 06:59 06:59 Intake Total 1677 1890 Output Total 3565 1880 Balance -1888 10 Result Diagrams: 04/17/19 02:25 04/18/19 06:25 Hospitalist ROS - Medication Medications: Active Medications Generic Name Dose Route Start Last Admin Trade Name Freq PRN Reason Stop Dose Admin Acetaminophen 650 mg 04/13/19 20:26 04/16/19 17:36 Tylenol Elixir PO 650 mg Q4H PRN Administration Headache/Fever/Mild Pain (1-3) Albuterol/Ipratropium 3 ml 04/12/19 18:30 04/18/19 10:20 Duoneb NEB 3 ml [id number] CLARA Administration Famotidine 20 mg 04/13/19 09:00 04/18/19 08:25 Pepcid SLOW IVP 20 mg QAM CLARA Administration Hydralazine HCl 20 mg 04/16/19 20:31 04/18/19 04:45 Apresoline SLOW IVP 20 mg Q4H PRN Administration SBP Greater Than 180 Sodium Chloride 1,000 mls @ 70 mls/hr 04/12/19 09:15 04/17/19 23:27 Normal Saline 0.9% IV 1,000 mls .[id number] CLARA Administration Cefazolin Sodium/Dextrose 2 gm 50 mls @ 100 mls/hr 04/14/19 08:00 04/18/19 08 :23 / Device IVPB 50 mls 0800,1600,2359 CLARA Administration Labetalol HCl 40 mg 04/16/19 17:51 04/16/19 17:58 Normodyne SLOW IVP 40 mg Q2H PRN Administration SBP>180 Morphine Sulfate 2 mg 04/15/19 12:36 04/18/19 12:09 Morphine SLOW IVP 2 mg Q4H PRN Administration Pain Sodium Chloride 10 ml 04/12/19 09:00 04/18/19 08:25 Flush - Normal Saline IVF 10 ml Q12HR CLARA Administration - Exam Neck: no JVD Heart: RRR, no murmur Respiratory - other findings: fine rales Gastrointestinal: soft, normal bowel sounds Extremities: 1+ LE edema Hosp A/P (1) Acute respiratory failure with hypoxia Code(s): J96.01 - ACUTE RESPIRATORY FAILURE WITH HYPOXIA Status: Acute (2) Bacteremia due to methicillin susceptible Staphylococcus aureus (MSSA) Code(s): R78.81 - BACTEREMIA Status: Acute (3) Sepsis Code(s): A41.9 - SEPSIS, UNSPECIFIED ORGANISM Status: Acute Qualifiers: Sepsis type: methicillin susceptible Staphylococcus aureus Sepsis acute organ dysfunction status: with acute organ dysfunction Acute respiratory failure type: with hypoxia Severe sepsis shock status: with septic shock (4) CAD (coronary artery disease) Code(s): I25.10 - ATHSCL HEART DISEASE OF [place] CORONARY ARTERY W/O ANG PCTRS Status: Chronic Qualifiers: Coronary Disease-Associated Artery/Lesion type: bypass graft [place] vs. transplanted heart: [place] heart Associated angina: without angina Qualified Code(s): I25.810 - Atherosclerosis of coronary artery bypass graft(s) without angina pectoris (5) DM type 2 (diabetes mellitus, type 2) Status: Chronic Qualifiers: Diabetes mellitus extermination supervisor insulin use: without extermination supervisor use Diabetes mellitus complication status: without complication Qualified Code(s): E11.9 - Type 2 diabetes mellitus without complications (6) Dyslipidemia Code(s): E78.5 - HYPERLIPIDEMIA, UNSPECIFIED Status: Chronic (7) Interstitial lung disease Code(s): J84.9 - INTERSTITIAL PULMONARY DISEASE, UNSPECIFIED Status: Chronic - Plan cont O2, current meds hospice pending
--- NOTE | 2019-04-18 14:30 | PRG ---
DATE OF SERVICE: 04/18/2019 SUBJECTIVE: The patient has been transferred after extubation to the floor and there was an apparent decision towards hospice care, but apparently family members have not yet decided. She is awake. She establishes eye contact and will answer briefly some questions with monosyllabic replies. She does not appear in acute distress, has not had diarrhea and she has an indwelling Gary catheter. OBJECTIVE: VITAL SIGNS: Vital signs with a T-max 98.2, blood pressure 150/80, pulse 104, respirations 16, O2 saturation 98. GENERAL: Does not appear in distress, awake. HEENT: Establishes eye contact, has hard time with communication. I could not get firm replies from patient. Ocular movements are conjugate. Pupils are equal. Oral cavity is quite dry, still quite a few teeth in place. LUNGS: Coarse breath sounds, rhonchi scattered through right and left hemithorax with few crackles here and there. HEART: S1 and S2 without murmurs. BACK: Wound in the back is unchanged. ABDOMEN: Soft, not distended or tender. Gary catheter in place. DEFORMITIES: She still has pretty good muscle tone in all 4 extremities, deformities from chronic rheumatoid arthritis. LABORATORY DATA: White cell count is at 12.5, hemoglobin 12.4, platelets 240 with 89% neutrophils. Sodium 136, creatinine 0.55. Cultures with methicillin-sensitive Staph aureus from the ulcer and 2 sets of blood cultures. Last imaging is chest x-ray from yesterday, which demonstrated extubation, right IJ central venous catheter, cardiomegaly, pulmonary vascular congestion, bilateral pleural effusions, lingular infiltrate. 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 Mckeon, methicillin sensitive Staph aureus bacteremia with possible or likely lung involvement and osteomyelitis of the fusion site. The patient is not a candidate for surgical intervention. There is yet not a firm decision on the part of the family regarding hospice care and we will continue cefazolin as previously scheduled. She will need to be assessed for nutritional input, have formal evaluation by Speech Therapy, which had been ordered before, but for some reason was not completed. Job ID: [id number]
[2019-04-18] MEDS: Sodium Chloride 0.9% 1,000 ML IV SCH (21:25)
[2019-04-19] MEDS: CEFAZOLIN 2 GM in Premix Bag 1 BAG IVPB SCH ×3 (01:54→16:42)
[2019-04-19 06:32] LABS: Anion Gap 11 mmol/L (10-20); BUN (Urea Nitrogen) 17 mg/dL (9.8-20.1); Calc. Creatinine Clearance 64 mL/min (70-130); Calcium 8.3 mg/dL (7.8-10.44); Carbon Dioxide 24 mmol/L (23-31); Chloride 108 mmol/L (98-107); Estimated GFR-MDRD Greater than 90; Glucose 66 mg/dL (83-110); Potassium 3.2 mmol/L (3.5-5.1); Sodium 140 mmol/L (136-145)
[2019-04-19] MEDS: Famotidine/PF 20 mg/2ml Vial SLOW IVP SCH (08:19)
[2019-04-19] MEDS: hydrALAZINE 20 MG/ML VIAL SLOW IVP PRN (08:28)
[2019-04-19] MEDS: Morphine 2 MG/ML SYRINGE SLOW IVP PRN ×3 (08:36→20:09)
--- NOTE | 2019-04-19 12:35 | PDOC.HOSPP ---
- Subjective Encounter Date: 04/19/19 Encounter Time: 12:33 Subjective: minimal responce to verbal stimuli - Objective Vital Signs & Weight: Vital Signs (12 hours) Temp Pulse Resp BP BP Pulse Ox 04/19/19 11:54 97.6 F 121 H 28 H 177/76 H 99 04/19/19 08:28 105 H 184/85 H 04/19/19 08:00 98.2 F 105 H 22 H 205/96 H 96 04/19/19 07:49 105 H 26 H 97 04/19/19 02:57 101 H 24 H 98 Weight Admit Weight 125 lb Weight 134 lb 11.239 oz Most Recent Monitor Data Heart Rate from ECG 102 NIBP 127/60 NIBP BP-Mean 82 Respiration from ECG 35 SpO2 100 I&O: 04/18/19 04/19/19 04/20/19 06:59 06:59 06:59 Intake Total 1890 1850 Output Total 1880 500 Balance 10 1350 Result Diagrams: 04/17/19 02:25 04/19/19 05:39 Hospitalist ROS - Medication Medications: Active Medications Generic Name Dose Route Start Last Admin Trade Name Freq PRN Reason Stop Dose Admin Acetaminophen 650 mg 04/13/19 20:26 04/16/19 17:36 Tylenol Elixir PO 650 mg Q4H PRN Administration Headache/Fever/Mild Pain (1-3) Albuterol/Ipratropium 3 ml 04/12/19 18:30 04/19/19 10:52 Duoneb NEB Not Given [id number] CALRA Famotidine 20 mg 04/13/19 09:00 04/19/19 08:19 Pepcid SLOW IVP 20 mg QAM CLARA Administration Hydralazine HCl 20 mg 04/16/19 20:31 04/19/19 08:28 Apresoline SLOW IVP 20 mg Q4H PRN Administration SBP Greater Than 180 Sodium Chloride 1,000 mls @ 70 mls/hr 04/12/19 09:15 04/18/19 21:25 Normal Saline 0.9% IV 1,000 mls .[id number] CLARA Administration Cefazolin Sodium/Dextrose 2 gm 50 mls @ 100 mls/hr 04/14/19 08:00 04/19/19 08 :19 / Device IVPB 50 mls 0800,1600,2359 CLARA Administration Labetalol HCl 40 mg 04/16/19 17:51 04/16/19 17:58 Normodyne SLOW IVP 40 mg Q2H PRN Administration SBP>180 Morphine Sulfate 2 mg 04/15/19 12:36 04/19/19 08:36 Morphine SLOW IVP 2 mg Q4H PRN Administration Pain Sodium Chloride 10 ml 04/12/19 09:00 04/19/19 08:19 Flush - Normal Saline IVF 10 ml Q12HR CLARA Administration - Exam Neck: no JVD Heart: RRR Respiratory: CTAB Gastrointestinal: soft, normal bowel sounds Extremities: 2+ LE edema Hosp A/P (1) Acute respiratory failure with hypoxia Code(s): J96.01 - ACUTE RESPIRATORY FAILURE WITH HYPOXIA Status: Acute (2) Bacteremia due to methicillin susceptible Staphylococcus aureus (MSSA) Code(s): R78.81 - BACTEREMIA Status: Acute (3) Sepsis Code(s): A41.9 - SEPSIS, UNSPECIFIED ORGANISM Status: Acute Qualifiers: Sepsis type: methicillin susceptible Staphylococcus aureus Sepsis acute organ dysfunction status: with acute organ dysfunction Acute respiratory failure type: with hypoxia Severe sepsis shock status: with septic shock (4) CAD (coronary artery disease) Code(s): I25.10 - ATHSCL HEART DISEASE OF [place] CORONARY ARTERY W/O ANG PCTRS Status: Chronic Qualifiers: Coronary Disease-Associated Artery/Lesion type: bypass graft [place] vs. transplanted heart: [place] heart Associated angina: without angina Qualified Code(s): I25.810 - Atherosclerosis of coronary artery bypass graft(s) without angina pectoris (5) DM type 2 (diabetes mellitus, type 2) Status: Chronic Qualifiers: Diabetes mellitus [facility] insulin use: without project engineering director use Diabetes mellitus complication status: without complication Qualified Code(s): E11.9 - Type 2 diabetes mellitus without complications (6) Dyslipidemia Code(s): E78.5 - HYPERLIPIDEMIA, UNSPECIFIED Status: Chronic (7) Interstitial lung disease Code(s): J84.9 - INTERSTITIAL PULMONARY DISEASE, UNSPECIFIED Status: Chronic - Plan slow decline, discussed options with family cont iv antibx diet as tolerated, family request family declines feeding tube
[2019-04-19] MEDS: Sodium Chloride 0.9% 1,000 ML IV SCH (16:45)
[2019-04-20] MEDS: CEFAZOLIN 2 GM in Premix Bag 1 BAG IVPB SCH ×3 (00:36→16:10)
[2019-04-20] MEDS: Morphine 2 MG/ML SYRINGE SLOW IVP PRN ×5 (01:46→21:21)
[2019-04-20] MEDS: Sodium Chloride 0.9% 1,000 ML IV SCH ×2 (04:42→16:10)
[2019-04-20] MEDS: Famotidine/PF 20 mg/2ml Vial SLOW IVP SCH (08:16)
[2019-04-20] MEDS: hydrALAZINE 20 MG/ML VIAL SLOW IVP PRN (08:16)
[2019-04-20 12:19] LABS: Anion Gap 11 mmol/L (10-20); BUN (Urea Nitrogen) 16 mg/dL (9.8-20.1); Calc. Creatinine Clearance 64 mL/min (70-130); Calcium 8.8 mg/dL (7.8-10.44); Carbon Dioxide 24 mmol/L (23-31); Chloride 111 mmol/L (98-107); Estimated GFR-MDRD Greater than 90; Glucose 75 mg/dL (83-110); Sodium 143 mmol/L (136-145)
--- NOTE | 2019-04-20 12:50 | PDOC.HOSPP ---
- Subjective Encounter Date: 04/20/19 Encounter Time: 12:48 Subjective: minimal alertness and responce - Objective Vital Signs & Weight: Vital Signs (12 hours) Temp Pulse Resp BP BP BP Pulse Ox 04/20/19 11:38 112 H 22 H 04/20/19 10:11 126/64 04/20/19 08:16 101 H 180/79 H 04/20/19 07:21 98 F 101 H 16 180/79 H 98 04/20/19 05:24 98.1 F 109 H 22 H 196/89 H 100 04/20/19 05:00 170/74 H Weight Admit Weight 125 lb Weight 134 lb 11.239 oz Most Recent Monitor Data Heart Rate from ECG 102 NIBP 127/60 NIBP BP-Mean 82 Respiration from ECG 35 SpO2 100 I&O: 04/19/19 04/20/19 04/21/19 06:59 06:59 06:59 Intake Total 1850 1450 Output Total 500 470 Balance 1350 980 Result Diagrams: 04/17/19 02:25 04/20/19 11:33 Hospitalist ROS - Medication Medications: Active Medications Generic Name Dose Route Start Last Admin Trade Name Freq PRN Reason Stop Dose Admin Acetaminophen 650 mg 04/13/19 20:26 04/16/19 17:36 Tylenol Elixir PO 650 mg Q4H PRN Administration Headache/Fever/Mild Pain (1-3) Albuterol/Ipratropium 3 ml 04/12/19 18:30 04/20/19 11:38 Duoneb NEB 3 ml [id number] CLARA Administration Famotidine 20 mg 04/13/19 09:00 04/20/19 08:16 Pepcid SLOW IVP 20 mg QAM CLARA Administration Hydralazine HCl 20 mg 04/16/19 20:31 04/20/19 08:16 Apresoline SLOW IVP 20 mg Q4H PRN Administration SBP Greater Than 180 Sodium Chloride 1,000 mls @ 70 mls/hr 04/12/19 09:15 04/20/19 04:42 Normal Saline 0.9% IV Not Given .[id number] CLARA Cefazolin Sodium/Dextrose 2 gm 50 mls @ 100 mls/hr 04/14/19 08:00 04/20/19 08 :15 / Device IVPB 50 mls 0800,1600,2359 CLARA Administration Labetalol HCl 40 mg 04/16/19 17:51 04/16/19 17:58 Normodyne SLOW IVP 40 mg Q2H PRN Administration SBP>180 Morphine Sulfate 2 mg 04/15/19 12:36 04/20/19 09:13 Morphine SLOW IVP 2 mg Q4H PRN Administration Pain Sodium Chloride 10 ml 04/12/19 09:00 04/20/19 09:13 Flush - Normal Saline IVF 10 ml Q12HR CLARA Administration - Exam Neck: no JVD Heart: RRR Heart - other findings: hyperdynamic Respiratory: CTAB Gastrointestinal: soft, normal bowel sounds Extremities: 1+ LE edema Hosp A/P (1) Acute respiratory failure with hypoxia Code(s): J96.01 - ACUTE RESPIRATORY FAILURE WITH HYPOXIA Status: Acute (2) Bacteremia due to methicillin susceptible Staphylococcus aureus (MSSA) Code(s): R78.81 - BACTEREMIA Status: Acute (3) Sepsis Code(s): A41.9 - SEPSIS, UNSPECIFIED ORGANISM Status: Acute Qualifiers: Sepsis type: methicillin susceptible Staphylococcus aureus Sepsis acute organ dysfunction status: with acute organ dysfunction Acute respiratory failure type: with hypoxia Severe sepsis shock status: with septic shock (4) CAD (coronary artery disease) Code(s): I25.10 - ATHSCL HEART DISEASE OF [place] CORONARY ARTERY W/O ANG PCTRS Status: Chronic Qualifiers: Coronary Disease-Associated Artery/Lesion type: bypass graft [place] vs. transplanted heart: [place] heart Associated angina: without angina Qualified Code(s): I25.810 - Atherosclerosis of coronary artery bypass graft(s) without angina pectoris (5) DM type 2 (diabetes mellitus, type 2) Status: Chronic Qualifiers: Diabetes mellitus continuous churn buttermaker insulin use: without longterm use Diabetes mellitus complication status: without complication Qualified Code(s): E11.9 - Type 2 diabetes mellitus without complications (6) Dyslipidemia Code(s): E78.5 - HYPERLIPIDEMIA, UNSPECIFIED Status: Chronic (7) Interstitial lung disease Code(s): J84.9 - INTERSTITIAL PULMONARY DISEASE, UNSPECIFIED Status: Chronic - Plan slow decline, discussed options with family cont iv antibx diet as tolerated, family request family declines feeding tube cont iv fluids prognosis guarded , family awaare
[2019-04-21] MEDS: CEFAZOLIN 2 GM in Premix Bag 1 BAG IVPB SCH ×4 (00:28→23:40)
[2019-04-21] MEDS ORDERED: hydrALAZINE 20 MG/ML VIAL ONE (05:49)
[2019-04-21] MEDS: Famotidine/PF 20 mg/2ml Vial SLOW IVP SCH (08:06)
[2019-04-21] MEDS: Morphine 2 MG/ML SYRINGE SLOW IVP PRN ×2 (10:28→17:07)
[2019-04-21] MEDS: Potassium Chloride 20 MEQ in Premix Bag 1 BAG IVPB SCH ×2 (13:10→17:15)
[2019-04-21] MEDS: Sodium Chloride 0.9% 1,000 ML IV SCH (13:19)
--- NOTE | 2019-04-21 14:33 | PDOC.HOSPP ---
- Subjective Encounter Date: 04/21/19 Encounter Time: 14:30 Subjective: unintellidgable rambling speech - Objective Vital Signs & Weight: Vital Signs (12 hours) Pulse Pulse Ox 04/21/19 12:43 97 04/21/19 08:03 97 Weight Admit Weight 125 lb Weight 134 lb 11.239 oz Most Recent Monitor Data Heart Rate from ECG 102 NIBP 127/60 NIBP BP-Mean 82 Respiration from ECG 35 SpO2 100 I&O: 04/20/19 04/21/19 04/22/19 06:59 06:59 06:59 Intake Total 1450 1000 Output Total 470 400 Balance 980 600 Result Diagrams: 04/17/19 02:25 04/20/19 11:33 Hospitalist ROS - Medication Medications: Active Medications Generic Name Dose Route Start Last Admin Trade Name Freq PRN Reason Stop Dose Admin Acetaminophen 650 mg 04/13/19 20:26 04/16/19 17:36 Tylenol Elixir PO 650 mg Q4H PRN Administration Headache/Fever/Mild Pain (1-3) Albuterol/Ipratropium 3 ml 04/12/19 18:30 04/21/19 10:53 Duoneb NEB 3 ml [id number] CLARA Administration Famotidine 20 mg 04/13/19 09:00 04/21/19 08:06 Pepcid SLOW IVP 20 mg QAM CLARA Administration Hydralazine HCl 20 mg 04/16/19 20:31 04/20/19 08:16 Apresoline SLOW IVP 20 mg Q4H PRN Administration SBP Greater Than 180 Sodium Chloride 1,000 mls @ 70 mls/hr 04/12/19 09:15 04/21/19 13:19 Normal Saline 0.9% IV 1,000 mls .[id number] CLARA Administration Cefazolin Sodium/Dextrose 2 gm 50 mls @ 100 mls/hr 04/14/19 08:00 04/21/19 10 :04 / Device IVPB 50 mls 0800,1600,2359 CLARA Administration Potassium Chloride 20 meq/ 100 mls @ 50 mls/hr 04/21/19 14:00 04/21/19 13:10 Device IVPB 04/21/19 17:59 100 mls Q2HR CLARA Administration Labetalol HCl 40 mg 04/16/19 17:51 04/16/19 17:58 Normodyne SLOW IVP 40 mg Q2H PRN Administration SBP>180 Morphine Sulfate 2 mg 04/15/19 12:36 04/21/19 10:28 Morphine SLOW IVP 2 mg Q4H PRN Administration Pain Sodium Chloride 10 ml 04/12/19 09:00 04/21/19 08:45 Flush - Normal Saline IVF 10 ml Q12HR CLARA Administration - Exam Neck: no JVD Heart - other findings: tachycardia, hyperdynamic Respiratory - other findings: coarse BS, rhonchi Gastrointestinal: soft, normal bowel sounds Extremities - other findings: anasarca on arms, legs no edema Hosp A/P (1) Acute respiratory failure with hypoxia Code(s): J96.01 - ACUTE RESPIRATORY FAILURE WITH HYPOXIA Status: Acute (2) Bacteremia due to methicillin susceptible Staphylococcus aureus (MSSA) Code(s): R78.81 - BACTEREMIA Status: Acute (3) Sepsis Code(s): A41.9 - SEPSIS, UNSPECIFIED ORGANISM Status: Acute Qualifiers: Sepsis type: methicillin susceptible Staphylococcus aureus Sepsis acute organ dysfunction status: with acute organ dysfunction Acute respiratory failure type: with hypoxia Severe sepsis shock status: with septic shock (4) CAD (coronary artery disease) Code(s): I25.10 - ATHSCL HEART DISEASE OF [place] CORONARY ARTERY W/O ANG PCTRS Status: Chronic Qualifiers: Coronary Disease-Associated Artery/Lesion type: bypass graft [place] vs. transplanted heart: [place] heart Associated angina: without angina Qualified Code(s): I25.810 - Atherosclerosis of coronary artery bypass graft(s) without angina pectoris (5) DM type 2 (diabetes mellitus, type 2) Status: Chronic Qualifiers: Diabetes mellitus termite treater helper insulin use: without senior care use Diabetes mellitus complication status: without complication Qualified Code(s): E11.9 - Type 2 diabetes mellitus without complications (6) Dyslipidemia Code(s): E78.5 - HYPERLIPIDEMIA, UNSPECIFIED Status: Chronic (7) Interstitial lung disease Code(s): J84.9 - INTERSTITIAL PULMONARY DISEASE, UNSPECIFIED Status: Chronic (8) Hypokalemia Code(s): E87.6 - HYPOKALEMIA Status: Acute - Plan slow decline, discussed options with family cont iv antibx diet as tolerated, family request family declines feeding tube CXR, cortisol level. stress levels solu-corteff lasix 40 mg 1 dose prognosis guarded , family aware
[2019-04-21] MEDS ORDERED: Furosemide 40 MG/4 ML VIAL SLOW IVP SCH (14:45)
[2019-04-21] MEDS ORDERED: D5 1/2 NS w/40 mEq KCL 1,000 ML IV SCH (14:45)
[2019-04-21] MEDS ORDERED: Hydrocortisone Sod Succ/PF 250 mg/2 ml Vial SLOW IVP SCH (14:45)
[2019-04-21] MEDS ORDERED: Hydrocortisone Sod Succ/PF 100 mg/2 ml Vial IVP SCH (15:00)
[2019-04-21 15:25] LABS: Anion Gap 14 mmol/L (10-20); BUN (Urea Nitrogen) 12 mg/dL (9.8-20.1); Calc. Creatinine Clearance 74 mL/min (70-130); Calcium 8.6 mg/dL (7.8-10.44); Carbon Dioxide 25 mmol/L (23-31); Chloride 109 mmol/L (98-107); Estimated GFR-MDRD Greater than 90; Glucose 68 mg/dL (83-110); Sodium 145 mmol/L (136-145)
[2019-04-21 15:27] LABS: Potassium 2.7 mmol/L (3.5-5.1)
--- NOTE | 2019-04-21 15:35 | PRG ---
DATE OF SERVICE: 04/21/2019 SUBJECTIVE: The patient is more alert today. She is able to communicate much more clearly, still having diffuse pain in all her joint structures. No dyspnea. Had some Jell-O earlier today given by family. No evidence of choking spells. She has an indwelling Gary catheter. No areas of skin breakdown. OBJECTIVE: VITAL SIGNS: Temperature max 98.1, blood pressure 180/79, pulse 101, respirations 20, O2 saturation 97% on 2 L nasal cannula. GENERAL: Awake, follows commands. Mobility impairment due to osteoarthritis and rheumatoid arthritis as well as acute illness. HEENT: Ocular movements conjugate. LUNGS: Clear. HEART: S1, S2, regular rate. ABDOMEN: Soft, not distended. MUSCULOSKELETAL: Multiple joint involvement by rheumatoid arthritis, but no obvious acute inflamed joint at this time noticed. PULSES: 1+ in dorsalis pedis. LABORATORY DATA: White cell count is at 12.5 from a few days ago, hemoglobin 12.4, platelets 240, creatinine 0.59. 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 Active treatment is still being pursued. Feeding tube has been declined by family. I do not think that hospice care has been accepted at this point in time. Consider placement of a PICC line since the central line is a risk for complications. Job ID: [id number]
--- NOTE | 2019-04-21 16:51 | PDOC.EVN ---
Event Note - Event Note Event Note: cortisol 16, low considering stress- startedd stess levels. CXR PVC. stopped iv fluids, started lasix
--- NOTE | 2019-04-21 17:15 | RAD ---
PORTABLE CHEST 1 VIEW: Date: 04/21/19 Time: 1635 hours HISTORY: Shortness of breath. FINDINGS/IMPRESSION: Comparison made with exam of 04/17/19. Changes of median sternotomy, spinal surgery with hardware and right internal jugular central line ar e again seen. The heart size is stable. There is pulmonary vascular congestion with accompanying pleu ral effusions. No pneumothoraces are noted. Bullous change in the lingula is redemonstrated. POS: JACKIE
[2019-04-21] MEDS: Hydrocortisone Sod Succ/PF 100 mg/2 ml Vial IVP SCH (20:04)
[2019-04-21] MEDS ORDERED: Clopidogrel Bisulfate 75 MG TAB ONE (23:20)
[2019-04-22] MEDS: Morphine 2 MG/ML SYRINGE SLOW IVP PRN ×2 (02:17→19:10)
[2019-04-22 06:03] LABS: #Lymphocytes 0.3 thou/uL (1.20-3.40); #Monocytes 0.1 thou/uL (0.11-0.59); #Neutrophils 5.2 thou/uL (1.40-6.50); %Basophils 0.3 % (0.0-1.0); %Eosinophils 0.1 % (0.0-10.0); %Monocytes 1.9 % (0.0-10.0); %Neutrophils 92.8 % (42.0-75.0); Hemoglobin 10.6 g/dL (12.0-16.0); Mean Corpuscular HGB CONC 32.2 g/dL (32.0-36.0); Mean Corpuscular Hemoglobin 32.7 pg (27.0-31.0); Mean Platelet Volume 9.3 fL (7.4-10.4); Platelet Count 226 thou/uL (130-400); RBC Distribution Width 14.8 % (11.5-14.5); Red Blood Cell (RBC) Count 3.23 mill/uL (4.20-5.40); White Blood Cell (WBC) Count 5.7 thou/uL (4.8-10.8)
[2019-04-22 06:28] LABS: Anion Gap 11 mmol/L (10-20); BUN (Urea Nitrogen) 11 mg/dL (9.8-20.1); Calc. Creatinine Clearance 60 mL/min (70-130); Calcium 8.6 mg/dL (7.8-10.44); Carbon Dioxide 31 mmol/L (23-31); Chloride 105 mmol/L (98-107); Estimated GFR-MDRD 89; Glucose 144 mg/dL (83-110); Sodium 144 mmol/L (136-145)
[2019-04-22 06:33] LABS: Potassium 2.6 mmol/L (3.5-5.1)
[2019-04-22] MEDS ORDERED: Potassium Chloride 20 MEQ TAB PO SCH (06:45)
[2019-04-22] MEDS: CEFAZOLIN 2 GM in Premix Bag 1 BAG IVPB SCH ×2 (07:57→15:24)
[2019-04-22] MEDS: Famotidine/PF 20 mg/2ml Vial SLOW IVP SCH (07:59)
[2019-04-22] MEDS: Hydrocortisone Sod Succ/PF 100 mg/2 ml Vial IVP SCH ×2 (08:00→21:27)
[2019-04-22] MEDS: Potassium Chloride 20 MEQ in Premix Bag 1 BAG IVPB SCH ×2 (09:13→15:28)
--- NOTE | 2019-04-22 13:52 | PDOC.HOSPP ---
- Subjective Encounter Date: 04/22/19 Encounter Time: 10:00 Subjective: pt is very weak, family bedside, Patient seen and examined. No overnight events - Objective Vital Signs & Weight: Vital Signs (12 hours) Temp Pulse Resp BP Pulse Ox 04/22/19 11:07 95 16 94 L 04/22/19 11:00 98.0 F 95 20 162/67 H 94 L 04/22/19 08:13 98.0 F 101 H 18 172/81 H 98 04/22/19 08:00 98 04/22/19 07:30 93 20 97 04/22/19 04:05 97.4 F L 93 17 171/83 H 96 Weight Admit Weight 125 lb Weight 134 lb 11.239 oz Most Recent Monitor Data Heart Rate from ECG 102 NIBP 127/60 NIBP BP-Mean 82 Respiration from ECG 35 SpO2 100 I&O: 04/21/19 04/22/19 04/23/19 06:59 06:59 06:59 Intake Total 1000 800 Output Total 400 2300 Balance 600 -1500 Result Diagrams: 04/22/19 05:45 04/22/19 05:45 Hospitalist ROS - Review of Systems Constitutional: reports: weakness, malaise. denies: fever, chills, sweats, other ENT: denies: ear pain, ear discharge, nose pain, nose discharge, nose congestion , mouth pain, mouth swelling, throat pain, throat swelling, other Respiratory: denies: cough, dry, shortness of breath, hemoptysis, SOB with excertion, pleuritic pain, sputum, wheezing, other Cardiovascular: denies: chest pain, palpitations, orthopnea, paroxysmal noc. dyspnea, edema, light headedness, other Gastrointestinal: denies: nausea, vomiting, abdominal pain, diarrhea, constipation, melena, hematochezia, other Genitourinary: denies: dysuria, frequency, incontinence, hematuria, retention, other Musculoskeletal: denies: neck pain, shoulder pain, arm pain, back pain, hand pain, leg pain, foot pain, other - Medication Medications: Active Medications Generic Name Dose Route Start Last Admin Trade Name Freq PRN Reason Stop Dose Admin Acetaminophen 650 mg 04/13/19 20:26 04/16/19 17:36 Tylenol Elixir PO 650 mg Q4H PRN Administration Headache/Fever/Mild Pain (1-3) Albuterol/Ipratropium 3 ml 04/12/19 18:30 04/22/19 11:07 Duoneb NEB 3 ml [id number] CLARA Administration Famotidine 20 mg 04/13/19 09:00 04/22/19 07:59 Pepcid SLOW IVP 20 mg QAM CLARA Administration HCTZ/Losartan Potassium 1 tab 04/22/19 09:00 04/22/19 09:12 Hyzaar 50/12.5 PO 1 tab DAILY CLARA Administration Hydralazine HCl 20 mg 04/16/19 20:31 04/20/19 08:16 Apresoline SLOW IVP 20 mg Q4H PRN Administration SBP Greater Than 180 Hydrocortisone Sodium Succinate 50 mg 04/21/19 21:00 04/22/19 08:00 Solu-Cortef IVP 50 mg Q12HR CLARA Administration Cefazolin Sodium/Dextrose 2 gm 50 mls @ 100 mls/hr 04/14/19 08:00 04/22/19 07 :57 / Device IVPB 50 mls 0800,1600,2359 CLARA Administration Labetalol HCl 40 mg 04/16/19 17:51 04/16/19 17:58 Normodyne SLOW IVP 40 mg Q2H PRN Administration SBP>180 Morphine Sulfate 2 mg 04/15/19 12:36 04/22/19 02:17 Morphine SLOW IVP 2 mg Q4H PRN Administration Pain Sodium Chloride 10 ml 04/12/19 09:00 04/22/19 09:16 Flush - Normal Saline IVF 10 ml Q12HR CLARA Administration - Exam General Appearance: NAD, ill appearing Eye: PERRL, anicteric sclera ENT: normocephalic atraumatic, no oropharyngeal lesions Neck: supple, symmetric, no JVD Heart: RRR, no murmur, no gallops, no rubs Respiratory: CTAB, no wheezes, no rales Gastrointestinal: soft, non-tender, non-distended Extremities: no cyanosis, no clubbing Skin: normal turgor, no lesions Neurological: no focal deficits Musculoskeletal: normal tone, normal strength Psychiatric: normal affect, normal behavior Hosp A/P (1) Acute respiratory failure with hypoxia Code(s): J96.01 - ACUTE RESPIRATORY FAILURE WITH HYPOXIA Status: Acute (2) Bacteremia due to methicillin susceptible Staphylococcus aureus (MSSA) Code(s): R78.81 - BACTEREMIA Status: Acute (3) Hypokalemia Code(s): E87.6 - HYPOKALEMIA Status: Acute (4) Sepsis Code(s): A41.9 - SEPSIS, UNSPECIFIED ORGANISM Status: Acute Qualifiers: Sepsis type: methicillin susceptible Staphylococcus aureus Sepsis acute organ dysfunction status: with acute organ dysfunction Acute respiratory failure type: with hypoxia Severe sepsis shock status: with septic shock (5) CAD (coronary artery disease) Code(s): I25.10 - ATHSCL HEART DISEASE OF [place] CORONARY ARTERY W/O ANG PCTRS Status: Chronic Qualifiers: Coronary Disease-Associated Artery/Lesion type: bypass graft [place] vs. transplanted heart: [place] heart Associated angina: without angina Qualified Code(s): I25.810 - Atherosclerosis of coronary artery bypass graft(s) without angina pectoris (6) DM type 2 (diabetes mellitus, type 2) Status: Chronic Qualifiers: Diabetes mellitus [facility] insulin use: without adjunct faculty for medical terminology use Diabetes mellitus complication status: without complication Qualified Code(s): E11.9 - Type 2 diabetes mellitus without complications (7) Dyslipidemia Code(s): E78.5 - HYPERLIPIDEMIA, UNSPECIFIED Status: Chronic (8) Interstitial lung disease Code(s): J84.9 - INTERSTITIAL PULMONARY DISEASE, UNSPECIFIED Status: Chronic (9) Rheumatoid arthritis Code(s): M06.9 - RHEUMATOID ARTHRITIS, UNSPECIFIED Status: Chronic Qualifiers: Rheumatoid arthritis location: unspecified site (10) Hypotension Status: Resolved Qualifiers: Hypotension type: unspecified hypotension type Qualified Code(s): I95.9 - Hypotension, unspecified - Plan old records reviewed/req, plan discussed w/ family, 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, PT/OT , 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/19 continue IV antibiotic as ordered family to decide about 3 option hospice, home with home health or SNU will need picc line for [facility] iv antibiotic as per ID continue modified diet as per speech continue PT/OT discussed with family bedside
[2019-04-23] MEDS: CEFAZOLIN 2 GM in Premix Bag 1 BAG IVPB SCH ×4 (00:20→23:18)
[2019-04-23] MEDS: Morphine 2 MG/ML SYRINGE SLOW IVP PRN ×2 (04:47→10:06)
[2019-04-23] MEDS: Ondansetron PF 4 MG/2 ML Vial IVP PRN (06:23)
[2019-04-23 07:05] LABS: Anion Gap 10 mmol/L (10-20); BUN (Urea Nitrogen) 12 mg/dL (9.8-20.1); Calc. Creatinine Clearance 68 mL/min (70-130); Calcium 8.6 mg/dL (7.8-10.44); Carbon Dioxide 31 mmol/L (23-31); Chloride 102 mmol/L (98-107); Estimated GFR-MDRD Greater than 90; Glucose 133 mg/dL (83-110); Sodium 140 mmol/L (136-145)
[2019-04-23 07:12] LABS: Potassium 2.9 mmol/L (3.5-5.1)
[2019-04-23] MEDS: Potassium Chloride 20 MEQ TAB PO SCH ×2 (08:29→20:45)
[2019-04-23] MEDS: Famotidine/PF 20 mg/2ml Vial SLOW IVP SCH (08:29)
[2019-04-23] MEDS: Hydrocortisone Sod Succ/PF 100 mg/2 ml Vial IVP SCH ×2 (08:30→20:46)
[2019-04-23] MEDS ORDERED: Cepastat Lozenges 1 LOZ PO PRN (10:56)
[2019-04-23] MEDS ORDERED: Senokot S 8.6-50 MG TAB PO PRN (10:56)
[2019-04-23] MEDS ORDERED: Bisacodyl 5 MG TAB PO PRN (10:56)
[2019-04-23] MEDS ORDERED: Loratadine 10 MG TAB PO PRN (10:56)
[2019-04-23] MEDS ORDERED: Sodium Chloride 0.65% Nasal 44 ML BOT EA NARE PRN (10:56)
[2019-04-23] MEDS ORDERED: Artificial Tears 18 DROP/0.9 ML EA EYE PRN (10:56)
[2019-04-23] MEDS ORDERED: Diabetic Tussin 200 MG/10 ML UDCUP PO PRN (10:56)
[2019-04-23] MEDS: Acetaminophen 650 MG/20.3 ML UDCUP PO PRN (11:44)
--- NOTE | 2019-04-23 12:38 | PDOC.HOSPP ---
- Subjective Encounter Date: 04/23/19 Encounter Time: 10:45 Subjective: Patient seen and examined. No new complaints. No overnight events - Objective Vital Signs & Weight: Vital Signs (12 hours) Temp Pulse Resp BP Pulse Ox 04/23/19 10:41 94 20 95 04/23/19 08:00 93 L 04/23/19 06:58 93 20 92 L 04/23/19 04:00 98.3 F 93 18 151/76 H 92 L 04/23/19 03:22 94 L Weight Admit Weight 125 lb Weight 134 lb 11.239 oz Most Recent Monitor Data Heart Rate from ECG 102 NIBP 127/60 NIBP BP-Mean 82 Respiration from ECG 35 SpO2 100 I&O: 04/22/19 04/23/19 04/24/19 06:59 06:59 06:59 Intake Total 800 500 Output Total 2300 250 Balance -1500 250 Result Diagrams: 04/22/19 05:45 04/23/19 06:24 Hospitalist ROS - Review of Systems Constitutional: reports: weakness, malaise. denies: fever, chills, sweats, other ENT: denies: ear pain, ear discharge, nose pain, nose discharge, nose congestion , mouth pain, mouth swelling, throat pain, throat swelling, other Respiratory: denies: cough, dry, shortness of breath, hemoptysis, SOB with excertion, pleuritic pain, sputum, wheezing, other Cardiovascular: denies: chest pain, palpitations, orthopnea, paroxysmal noc. dyspnea, edema, light headedness, other Gastrointestinal: denies: nausea, vomiting, abdominal pain, diarrhea, constipation, melena, hematochezia, other Genitourinary: denies: dysuria, frequency, incontinence, hematuria, retention, other Musculoskeletal: denies: neck pain, shoulder pain, arm pain, back pain, hand pain, leg pain, foot pain, other - Medication Medications: Active Medications Generic Name Dose Route Start Last Admin Trade Name Freq PRN Reason Stop Dose Admin Acetaminophen 650 mg 04/13/19 20:26 04/23/19 11:44 Tylenol Elixir PO 650 mg Q4H PRN Administration Headache/Fever/Mild Pain (1-3) Albuterol/Ipratropium 3 ml 04/12/19 18:30 04/23/19 10:41 Duoneb NEB 3 ml [id number] CLARA Administration Famotidine 20 mg 04/13/19 09:00 04/23/19 08:29 Pepcid SLOW IVP 20 mg QAM CLARA Administration HCTZ/Losartan Potassium 1 tab 04/22/19 09:00 04/23/19 08:30 Hyzaar 50/12.5 PO 1 tab DAILY CLARA Administration Hydralazine HCl 20 mg 04/16/19 20:31 04/20/19 08:16 Apresoline SLOW IVP 20 mg Q4H PRN Administration SBP Greater Than 180 Hydrocortisone Sodium Succinate 50 mg 04/21/19 21:00 04/23/19 08:30 Solu-Cortef IVP 50 mg Q12HR CLARA Administration Cefazolin Sodium/Dextrose 2 gm 50 mls @ 100 mls/hr 04/14/19 08:00 04/23/19 08 :29 / Device IVPB 50 mls 0800,1600,2359 CLARA Administration Labetalol HCl 40 mg 04/16/19 17:51 04/16/19 17:58 Normodyne SLOW IVP 40 mg Q2H PRN Administration SBP>180 Morphine Sulfate 2 mg 04/15/19 12:36 04/23/19 10:06 Morphine SLOW IVP 2 mg Q4H PRN Administration Severe Pain (7-10) Ondansetron HCl 4 mg 04/23/19 06:19 04/23/19 06:23 Zofran IVP 4 mg Q6H PRN Administration Nausea/Vomiting Potassium Chloride 40 meq 04/23/19 09:00 04/23/19 08:29 K-Dur PO 04/23/19 17:01 40 meq 0900,1700 CLARA Administration Sodium Chloride 10 ml 04/12/19 09:00 04/23/19 08:30 Flush - Normal Saline IVF 10 ml Q12HR CLARA Administration - Exam General Appearance: NAD, ill appearing Eye: PERRL, anicteric sclera ENT: normocephalic atraumatic, no oropharyngeal lesions Neck: supple, symmetric, no JVD Heart: RRR, no murmur, no gallops Respiratory: CTAB, no wheezes, no rales Gastrointestinal: soft, non-tender, non-distended, normal bowel sounds Extremities: no cyanosis, no clubbing Skin: normal turgor Neurological: no focal deficits Musculoskeletal: normal tone, normal strength Psychiatric: normal affect, normal behavior Hosp A/P (1) Acute respiratory failure with hypoxia Code(s): J96.01 - ACUTE RESPIRATORY FAILURE WITH HYPOXIA Status: Acute (2) Bacteremia due to methicillin susceptible Staphylococcus aureus (MSSA) Code(s): R78.81 - BACTEREMIA Status: Acute (3) Hypokalemia Code(s): E87.6 - HYPOKALEMIA Status: Acute (4) Sepsis Code(s): A41.9 - SEPSIS, UNSPECIFIED ORGANISM Status: Acute Qualifiers: Sepsis type: methicillin susceptible Staphylococcus aureus Sepsis acute organ dysfunction status: with acute organ dysfunction Acute respiratory failure type: with hypoxia Severe sepsis shock status: with septic shock (5) CAD (coronary artery disease) Code(s): I25.10 - ATHSCL HEART DISEASE OF [place] CORONARY ARTERY W/O ANG PCTRS Status: Chronic Qualifiers: Coronary Disease-Associated Artery/Lesion type: bypass graft [place] vs. transplanted heart: [place] heart Associated angina: without angina Qualified Code(s): I25.810 - Atherosclerosis of coronary artery bypass graft(s) without angina pectoris (6) DM type 2 (diabetes mellitus, type 2) Status: Chronic Qualifiers: Diabetes mellitus terminal gauger supervisor insulin use: without longterm use Diabetes mellitus complication status: without complication Qualified Code(s): E11.9 - Type 2 diabetes mellitus without complications (7) Dyslipidemia Code(s): E78.5 - HYPERLIPIDEMIA, UNSPECIFIED Status: Chronic (8) Interstitial lung disease Code(s): J84.9 - INTERSTITIAL PULMONARY DISEASE, UNSPECIFIED Status: Chronic (9) Rheumatoid arthritis Code(s): M06.9 - RHEUMATOID ARTHRITIS, UNSPECIFIED Status: Chronic Qualifiers: Rheumatoid arthritis location: unspecified site (10) Hypotension Status: Resolved Qualifiers: Hypotension type: unspecified hypotension type Qualified Code(s): I95.9 - Hypotension, unspecified - Plan old records reviewed/req, plan discussed w/ family, 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, PT/OT , social work program coordinator 04/22/19 continue IV antibiotic as ordered family to decide about 3 option hospice, home with home health or SNU will need picc line for terminal gauger supervisor iv antibiotic as per ID continue modified diet as per speech continue PT/OT discussed with family bedside 04/23/19 medication reviewed and continue to provide supportive care once family decide about facility then discharge planning central line vs picc line will defer to ID continue IV antibiotics
[2019-04-24 07:18] LABS: Anion Gap 6 mmol/L (10-20); BUN (Urea Nitrogen) 12 mg/dL (9.8-20.1); Calc. Creatinine Clearance 71 mL/min (70-130); Calcium 8.5 mg/dL (7.8-10.44); Carbon Dioxide 35 mmol/L (23-31); Chloride 102 mmol/L (98-107); Estimated GFR-MDRD Greater than 90; Glucose 102 mg/dL (83-110); Potassium 3.9 mmol/L (3.5-5.1); Sodium 139 mmol/L (136-145)
[2019-04-24] MEDS: CEFAZOLIN 2 GM in Premix Bag 1 BAG IVPB SCH ×3 (08:05→22:54)
--- NOTE | 2019-04-24 10:32 | PDOC.HOSPP ---
- Subjective Encounter Date: 04/24/19 Encounter Time: 09:45 Subjective: Patient seen and examined. No new complaints. No overnight events able to seat over bedside commode - Objective Vital Signs & Weight: Vital Signs (12 hours) Temp Pulse Resp BP Pulse Ox 04/24/19 07:39 97.9 F 92 20 155/77 H 91 L 04/24/19 06:49 93 L 04/24/19 06:47 87 16 93 L Weight Admit Weight 125 lb Weight 134 lb 11.239 oz Most Recent Monitor Data Heart Rate from ECG 102 NIBP 127/60 NIBP BP-Mean 82 Respiration from ECG 35 SpO2 100 I&O: 04/23/19 04/24/19 04/25/19 06:59 06:59 06:59 Intake Total 500 160 Output Total 250 450 Balance 250 -290 Result Diagrams: 04/22/19 05:45 04/24/19 06:03 Hospitalist ROS - Review of Systems Constitutional: reports: weakness, malaise. denies: fever, chills, sweats, other ENT: denies: ear pain, ear discharge, nose pain, nose discharge, nose congestion , mouth pain, mouth swelling, throat pain, throat swelling, other Respiratory: denies: cough, dry, shortness of breath, hemoptysis, SOB with excertion, pleuritic pain, sputum, wheezing, other Cardiovascular: denies: chest pain, palpitations, orthopnea, paroxysmal noc. dyspnea, edema, light headedness, other Gastrointestinal: denies: nausea, vomiting, abdominal pain, diarrhea, constipation, melena, hematochezia, other Genitourinary: denies: dysuria, frequency, incontinence, hematuria, retention, other Musculoskeletal: denies: neck pain, shoulder pain, arm pain, back pain, hand pain, leg pain, foot pain, other - Medication Medications: Active Medications Generic Name Dose Route Start Last Admin Trade Name Freq PRN Reason Stop Dose Admin Acetaminophen 650 mg 04/13/19 20:26 04/23/19 11:44 Tylenol Elixir PO 650 mg Q4H PRN Administration Headache/Fever/Mild Pain (1-3) Albuterol/Ipratropium 3 ml 04/12/19 18:30 04/24/19 06:47 Duoneb NEB 3 ml [id number] CLARA Administration HCTZ/Losartan Potassium 1 tab 04/22/19 09:00 04/23/19 08:30 Hyzaar 50/12.5 PO 1 tab DAILY CLARA Administration Hydralazine HCl 20 mg 04/16/19 20:31 04/20/19 08:16 Apresoline SLOW IVP 20 mg Q4H PRN Administration SBP Greater Than 180 Cefazolin Sodium/Dextrose 2 gm 50 mls @ 100 mls/hr 04/14/19 08:00 04/24/19 08 :05 / Device IVPB 50 mls 0800,1600,2359 CLARA Administration Labetalol HCl 40 mg 04/16/19 17:51 04/16/19 17:58 Normodyne SLOW IVP 40 mg Q2H PRN Administration SBP>180 Morphine Sulfate 2 mg 04/15/19 12:36 04/23/19 10:06 Morphine SLOW IVP 2 mg Q4H PRN Administration Severe Pain (7-10) Ondansetron HCl 4 mg 04/23/19 06:19 04/23/19 06:23 Zofran IVP 4 mg Q6H PRN Administration Nausea/Vomiting Sodium Chloride 10 ml 04/12/19 09:00 04/23/19 20:46 Flush - Normal Saline IVF 10 ml Q12HR CLARA Administration - Exam General Appearance: NAD, awake alert Eye: PERRL, anicteric sclera ENT: normocephalic atraumatic, no oropharyngeal lesions Neck: supple, symmetric, no JVD Heart: RRR, no murmur, no gallops, no rubs Respiratory: CTAB, no wheezes, no rales, no ronchi Gastrointestinal: soft, non-tender, non-distended, normal bowel sounds Extremities: no cyanosis, no clubbing Skin: normal turgor, no lesions Neurological: no focal deficits Musculoskeletal: normal tone, normal strength Psychiatric: normal affect, normal behavior Hosp A/P (1) Acute respiratory failure with hypoxia Code(s): J96.01 - ACUTE RESPIRATORY FAILURE WITH HYPOXIA Status: Acute (2) Bacteremia due to methicillin susceptible Staphylococcus aureus (MSSA) Code(s): R78.81 - BACTEREMIA Status: Acute (3) Hypokalemia Code(s): E87.6 - HYPOKALEMIA Status: Acute (4) Sepsis Code(s): A41.9 - SEPSIS, UNSPECIFIED ORGANISM Status: Acute Qualifiers: Sepsis type: methicillin susceptible Staphylococcus aureus Sepsis acute organ dysfunction status: with acute organ dysfunction Acute respiratory failure type: with hypoxia Severe sepsis shock status: with septic shock (5) CAD (coronary artery disease) Code(s): I25.10 - ATHSCL HEART DISEASE OF [place] CORONARY ARTERY W/O ANG PCTRS Status: Chronic Qualifiers: Coronary Disease-Associated Artery/Lesion type: bypass graft [place] vs. transplanted heart: [place] heart Associated angina: without angina Qualified Code(s): I25.810 - Atherosclerosis of coronary artery bypass graft(s) without angina pectoris (6) DM type 2 (diabetes mellitus, type 2) Status: Chronic Qualifiers: Diabetes mellitus [facility] insulin use: without extermination supervisor use Diabetes mellitus complication status: without complication Qualified Code(s): E11.9 - Type 2 diabetes mellitus without complications (7) Dyslipidemia Code(s): E78.5 - HYPERLIPIDEMIA, UNSPECIFIED Status: Chronic (8) Interstitial lung disease Code(s): J84.9 - INTERSTITIAL PULMONARY DISEASE, UNSPECIFIED Status: Chronic (9) Rheumatoid arthritis Code(s): M06.9 - RHEUMATOID ARTHRITIS, UNSPECIFIED Status: Chronic Qualifiers: Rheumatoid arthritis location: unspecified site (10) Hypotension Status: Resolved Qualifiers: Hypotension type: unspecified hypotension type Qualified Code(s): I95.9 - Hypotension, unspecified - Plan old records reviewed/req, plan discussed w/ family, 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, PT/OT , clinical social work therapist 04/22/19 continue IV antibiotic as ordered family to decide about 3 option hospice, home with home health or SNU will need picc line for extermination supervisor iv antibiotic as per ID continue modified diet as per speech continue PT/OT discussed with family bedside 04/23/19 medication reviewed and continue to provide supportive care once family decide about facility then discharge planning central line vs picc line will defer to ID continue IV antibiotics 04/24/19 no new recommendation continue PT/OT continue ancef repeat labs tomorrow await placement
[2019-04-24] MEDS: DULoxetine 30 MG CAP PO SCH (10:33)
[2019-04-24] MEDS: Ascorbic Acid 500 mg Chewable Tablet PO SCH (10:33)
[2019-04-24] MEDS: Furosemide 40 MG TAB PO SCH (10:34)
[2019-04-24] MEDS: Rosuvastatin 5 MG TAB PO SCH (10:34)
[2019-04-24] MEDS: traMADol HCl 50 MG TAB PO PRN ×2 (10:34→16:01)
[2019-04-24] MEDS: Gabapentin 300 MG CAP PO SCH (10:35)
[2019-04-24] MEDS: predniSONE 5 MG TAB PO SCH (10:35)
[2019-04-24] MEDS: Hydroxychloroquine Sulfate 200 MG TAB PO SCH (10:35)
[2019-04-24] MEDS: Fish Oil 1,000 MG CAP PO SCH (11:08)
--- NOTE | 2019-04-24 13:22 | PRG ---
DATE OF SERVICE: 04/24/2019 SUBJECTIVE: The patient is an 89-year-old female, recently evaluated by us for a wound overlying her prior thoracolumbar fusion. She is also critically ill with acute sepsis and respiratory failure and ventilated. Since then, she has been extubated and is clinically improving. She is now awake, communicating, and has been up on a bedside commode. Her family have discussed hospice versus longterm care and they have decided on longterm at some point. We are asked to reassess the patient as she has had some progression of her wound and now we are able to visualize the thoracolumbar hardware at the wound site. The patient has been afebrile for several days. Her white count is 5.7. She has been followed by Wound Care and also ID and getting long-term antibiotics. OBJECTIVE: On exam this morning, the patient is awake, alert. She is able to tell me her name. She has free active range of motion of all extremities. No focal motor weakness. There is a small 1.5 cm lesion over the left upper mid back overlying her thoracolumbar hardware. I am able to visualize part of the screw head beneath this opening. There is a serous drainage on her wound care dressing. ASSESSMENT AND PLAN: Unfortunately, the patient has had progression of her incision and I am able to visualize her hardware. Clinically, she is otherwise improved and has been afebrile and her white count has trended downwards. At this point, considering her age and fragile state, there are no good surgical options. I have discussed this with Dr. Mckeon, who recommended ongoing wound care, continued long-term management of IV antibiotics. No plans for acute neurosurgical intervention at this time. Job ID: [id number]
[2019-04-25 06:30] LABS: Anion Gap 7 mmol/L (10-20); BUN (Urea Nitrogen) 10 mg/dL (9.8-20.1); Calc. Creatinine Clearance 74 mL/min (70-130); Calcium 7.9 mg/dL (7.8-10.44); Carbon Dioxide 37 mmol/L (23-31); Chloride 95 mmol/L (98-107); Estimated GFR-MDRD Greater than 90; Glucose 82 mg/dL (83-110); Magnesium 1.7 mg/dL (1.6-2.6); Sodium 136 mmol/L (136-145)
[2019-04-25 06:34] LABS: Potassium 2.6 mmol/L (3.5-5.1)
[2019-04-25] MEDS ORDERED: Potassium Phosphate 15 MMOL in Sodium Chloride 0.9% 250 ML 250 ML IVPB SCH (07:00)
[2019-04-25] MEDS: Losartan 25 MG TAB PO SCH (08:02)
[2019-04-25] MEDS: predniSONE 5 MG TAB PO SCH (08:02)
[2019-04-25] MEDS: Furosemide 40 MG TAB PO SCH (08:04)
[2019-04-25] MEDS: Magnesium Oxide 400 MG TAB PO SCH (08:04)
[2019-04-25] MEDS: DULoxetine 30 MG CAP PO SCH (08:04)
[2019-04-25] MEDS: Ascorbic Acid 500 mg Chewable Tablet PO SCH (08:04)
[2019-04-25] MEDS: Gabapentin 300 MG CAP PO SCH (08:04)
[2019-04-25] MEDS: Hydroxychloroquine Sulfate 200 MG TAB PO SCH (08:04)
[2019-04-25] MEDS: Potassium Chloride 20 MEQ in Premix Bag 1 BAG IVPB SCH ×2 (08:06→11:02)
[2019-04-25] MEDS: Fish Oil 1,000 MG CAP PO SCH (08:06)
[2019-04-25] MEDS: Rosuvastatin 5 MG TAB PO SCH (08:06)
[2019-04-25] MEDS: CEFAZOLIN 2 GM in Premix Bag 1 BAG IVPB SCH ×2 (08:07→15:35)
--- NOTE | 2019-04-25 12:28 | PDOC.HOSPP ---
- Subjective Encounter Date: 04/25/19 Encounter Time: 10:15 Subjective: Patient seen and examined. No new complaints. No overnight events - Objective Vital Signs & Weight: Vital Signs (12 hours) Temp Pulse Resp BP Pulse Ox 04/25/19 11:28 79 18 99 04/25/19 08:08 97.8 F 96 20 160/84 H 92 L 04/25/19 08:00 92 L 04/25/19 06:45 90 16 97 Weight Admit Weight 125 lb Weight 134 lb 11.239 oz Most Recent Monitor Data Heart Rate from ECG 102 NIBP 127/60 NIBP BP-Mean 82 Respiration from ECG 35 SpO2 100 I&O: 04/24/19 04/25/19 04/26/19 06:59 06:59 06:59 Intake Total 160 160 Output Total 450 750 Balance -290 -590 Result Diagrams: 04/22/19 05:45 04/25/19 05:50 Hospitalist ROS - Review of Systems Constitutional: reports: weakness. denies: fever, chills, sweats, malaise, other ENT: denies: ear pain, ear discharge, nose pain, nose discharge, nose congestion , mouth pain, mouth swelling, throat pain, throat swelling, other Respiratory: denies: cough, dry, shortness of breath, hemoptysis, SOB with excertion, pleuritic pain, sputum, wheezing, other Cardiovascular: denies: chest pain, palpitations, orthopnea, paroxysmal noc. dyspnea, edema, light headedness, other Gastrointestinal: denies: nausea, vomiting, abdominal pain, diarrhea, constipation, melena, hematochezia, other Genitourinary: denies: dysuria, frequency, incontinence, hematuria, retention, other Musculoskeletal: denies: neck pain, shoulder pain, arm pain, back pain, hand pain, leg pain, foot pain, other - Medication Medications: Active Medications Generic Name Dose Route Start Last Admin Trade Name Freq PRN Reason Stop Dose Admin Acetaminophen 650 mg 04/13/19 20:26 04/23/19 11:44 Tylenol Elixir PO 650 mg Q4H PRN Administration Headache/Fever/Mild Pain (1-3) Albuterol/Ipratropium 3 ml 04/12/19 18:30 04/25/19 11:28 Duoneb NEB 3 ml [id number] CLARA Administration Ascorbic Acid 500 mg 04/24/19 09:00 04/25/19 08:04 Vitamin C PO 500 mg DAILY CLARA Administration Duloxetine HCl 30 mg 04/24/19 09:00 04/25/19 08:04 Cymbalta PO 30 mg DAILY CLARA Administration Fish Oil 1,000 mg 04/24/19 09:00 04/25/19 08:06 Fish Oil PO Not Given DAILY CLARA Furosemide 40 mg 04/24/19 09:00 04/25/19 08:04 Lasix PO 40 mg DAILY CLARA Administration Gabapentin 600 mg 04/24/19 09:00 04/25/19 08:04 Neurontin PO 600 mg DAILY CLARA Administration Hydralazine HCl 20 mg 04/16/19 20:31 04/20/19 08:16 Apresoline SLOW IVP 20 mg Q4H PRN Administration SBP Greater Than 180 Hydroxychloroquine Sulfate 200 mg 04/24/19 09:00 04/25/19 08:04 Plaquenil PO 200 mg DAILY CLARA Administration Cefazolin Sodium/Dextrose 2 gm 50 mls @ 100 mls/hr 04/14/19 08:00 04/25/19 08 :07 / Device IVPB 50 mls 0800,1600,2359 CLARA Administration Labetalol HCl 40 mg 04/16/19 17:51 04/16/19 17:58 Normodyne SLOW IVP 40 mg Q2H PRN Administration SBP>180 Losartan Potassium 50 mg 04/25/19 09:00 04/25/19 08:02 Cozaar PO 50 mg DAILY CLARA Administration Magnesium Oxide 400 mg 04/25/19 09:00 04/25/19 08:04 Magnesium Oxide PO 400 mg DAILY CLARA Administration Morphine Sulfate 2 mg 04/15/19 12:36 04/23/19 10:06 Morphine SLOW IVP 2 mg Q4H PRN Administration Severe Pain (7-10) Ondansetron HCl 4 mg 04/23/19 06:19 04/23/19 06:23 Zofran IVP 4 mg Q6H PRN Administration Nausea/Vomiting Pantoprazole Sodium 40 mg 04/24/19 09:00 04/25/19 08:04 Protonix PO 40 mg DAILY CLARA Administration Prednisone 5 mg 04/24/19 09:00 04/25/19 08:02 Prednisone PO 5 mg DAILY CLARA Administration Rosuvastatin Calcium 5 mg 04/24/19 09:00 04/25/19 08:06 Crestor PO 5 mg DAILY CLARA Administration Sodium Chloride 10 ml 04/12/19 09:00 04/25/19 08:06 Flush - Normal Saline IVF 10 ml Q12HR CLARA Administration Tramadol HCl 50 mg 04/23/19 10:56 04/24/19 16:01 Ultram PO 50 mg Q6H PRN Administration Moderate Pain (4-6) - Exam General Appearance: NAD, awake alert Eye: PERRL, anicteric sclera ENT: normocephalic atraumatic, no oropharyngeal lesions Neck: supple, symmetric, no JVD Heart: RRR, no murmur, no gallops, no rubs Respiratory: CTAB, no wheezes, no rales, no ronchi Gastrointestinal: soft, non-tender, non-distended, normal bowel sounds Extremities: no cyanosis, no clubbing, no edema Skin: normal turgor, no lesions Neurological: no focal deficits Musculoskeletal: normal tone, normal strength Psychiatric: normal affect, normal behavior Hosp A/P (1) Acute respiratory failure with hypoxia Code(s): J96.01 - ACUTE RESPIRATORY FAILURE WITH HYPOXIA Status: Acute (2) Bacteremia due to methicillin susceptible Staphylococcus aureus (MSSA) Code(s): R78.81 - BACTEREMIA Status: Acute (3) Hypokalemia Code(s): E87.6 - HYPOKALEMIA Status: Acute (4) Sepsis Code(s): A41.9 - SEPSIS, UNSPECIFIED ORGANISM Status: Acute Qualifiers: Sepsis type: methicillin susceptible Staphylococcus aureus Sepsis acute organ dysfunction status: with acute organ dysfunction Acute respiratory failure type: with hypoxia Severe sepsis shock status: with septic shock (5) CAD (coronary artery disease) Code(s): I25.10 - ATHSCL HEART DISEASE OF [place] CORONARY ARTERY W/O ANG PCTRS Status: Chronic Qualifiers: Coronary Disease-Associated Artery/Lesion type: bypass graft [place] vs. transplanted heart: [place] heart Associated angina: without angina Qualified Code(s): I25.810 - Atherosclerosis of coronary artery bypass graft(s) without angina pectoris (6) DM type 2 (diabetes mellitus, type 2) Status: Chronic Qualifiers: Diabetes mellitus intermediate accountant insulin use: without alf use Diabetes mellitus complication status: without complication Qualified Code(s): E11.9 - Type 2 diabetes mellitus without complications (7) Dyslipidemia Code(s): E78.5 - HYPERLIPIDEMIA, UNSPECIFIED Status: Chronic (8) Interstitial lung disease Code(s): J84.9 - INTERSTITIAL PULMONARY DISEASE, UNSPECIFIED Status: Chronic (9) Rheumatoid arthritis Code(s): M06.9 - RHEUMATOID ARTHRITIS, UNSPECIFIED Status: Chronic Qualifiers: Rheumatoid arthritis location: unspecified site (10) Hypotension Status: Resolved Qualifiers: Hypotension type: unspecified hypotension type Qualified Code(s): I95.9 - Hypotension, unspecified (11) Hypophosphatemia Code(s): E83.39 - OTHER DISORDERS OF PHOSPHORUS METABOLISM Status: Acute - Plan old records reviewed/req, plan discussed w/ family, 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, PT/OT , rn social work 04/22/19 continue IV antibiotic as ordered family to decide about 3 option hospice, home with home health or SNU will need picc line for intermediate accountant iv antibiotic as per ID continue modified diet as per speech continue PT/OT discussed with family bedside 04/23/19 medication reviewed and continue to provide supportive care once family decide about facility then discharge planning central line vs picc line will defer to ID continue IV antibiotics 04/24/19 no new recommendation continue PT/OT continue ancef repeat labs tomorrow await placement 04/25/19 medically stable with current treatment medication reviewed replace potassium and potassium phosphate and repeat labs tomorrow discussed with son bedside await placement continue ancef
[2019-04-26] MEDS: CEFAZOLIN 2 GM in Premix Bag 1 BAG IVPB SCH ×4 (00:29→23:43)
[2019-04-26] MEDS: hydrALAZINE 20 MG/ML VIAL SLOW IVP PRN (08:14)
[2019-04-26] MEDS: Losartan 25 MG TAB PO SCH (08:16)
[2019-04-26] MEDS: Ascorbic Acid 500 mg Chewable Tablet PO SCH (08:20)
[2019-04-26] MEDS: Gabapentin 300 MG CAP PO SCH (08:21)
[2019-04-26] MEDS: Hydroxychloroquine Sulfate 200 MG TAB PO SCH (08:21)
[2019-04-26] MEDS: DULoxetine 30 MG CAP PO SCH (08:21)
[2019-04-26] MEDS: Rosuvastatin 5 MG TAB PO SCH (08:21)
[2019-04-26] MEDS: predniSONE 5 MG TAB PO SCH (08:21)
[2019-04-26] MEDS: Fish Oil 1,000 MG CAP PO SCH (08:21)
[2019-04-26] MEDS: Furosemide 40 MG TAB PO SCH (08:21)
[2019-04-26] MEDS: Magnesium Oxide 400 MG TAB PO SCH (08:22)
--- NOTE | 2019-04-26 10:56 | PDOC.HOSPP ---
- Subjective Encounter Date: 04/26/19 Encounter Time: 10:15 Subjective: pt does not like her modified diet and does not like medication given crushed with purre diet and wants regular diet - Objective Vital Signs & Weight: Vital Signs (12 hours) Temp Pulse Resp BP Pulse Ox 04/26/19 10:27 86 20 96 04/26/19 09:00 172/80 H 04/26/19 08:09 97.4 F L 86 20 192/103 H 99 04/26/19 07:49 99 16 93 L Weight Admit Weight 125 lb Weight 134 lb 11.239 oz Most Recent Monitor Data Heart Rate from ECG 102 NIBP 127/60 NIBP BP-Mean 82 Respiration from ECG 35 SpO2 100 I&O: 04/25/19 04/26/19 04/27/19 06:59 06:59 06:59 Intake Total 160 780 Output Total 750 1850 Balance -563 -6521 Result Diagrams: 04/22/19 05:45 04/25/19 05:50 Hospitalist ROS - Review of Systems ENT: denies: ear pain, ear discharge, nose pain, nose discharge, nose congestion , mouth pain, mouth swelling, throat pain, throat swelling, other Respiratory: denies: cough, dry, shortness of breath, hemoptysis, SOB with excertion, pleuritic pain, sputum, wheezing, other Cardiovascular: denies: chest pain, palpitations, orthopnea, paroxysmal noc. dyspnea, edema, light headedness, other Gastrointestinal: denies: nausea, vomiting, abdominal pain, diarrhea, constipation, melena, hematochezia, other Genitourinary: denies: dysuria, frequency, incontinence, hematuria, retention, other Musculoskeletal: denies: neck pain, shoulder pain, arm pain, back pain, hand pain, leg pain, foot pain, other - Medication Medications: Active Medications Generic Name Dose Route Start Last Admin Trade Name Freq PRN Reason Stop Dose Admin Acetaminophen 650 mg 04/13/19 20:26 04/23/19 11:44 Tylenol Elixir PO 650 mg Q4H PRN Administration Headache/Fever/Mild Pain (1-3) Albuterol/Ipratropium 3 ml 04/12/19 18:30 04/26/19 10:27 Duoneb NEB 3 ml [id number] CLARA Administration Ascorbic Acid 500 mg 04/24/19 09:00 12/09/19 08:20 Vitamin C PO Not Given DAILY [facility] Duloxetine HCl 30 mg 04/24/19 09:00 04/26/19 08:21 Cymbalta PO Not Given DAILY [facility] Fish Oil 1,000 mg 04/24/19 09:00 04/26/19 08:21 Fish Oil PO Not Given DAILY [facility] Furosemide 40 mg 04/24/19 09:00 04/26/19 08:21 Lasix PO Not Given DAILY [facility] Gabapentin 600 mg 04/24/19 09:00 04/26/19 08:21 Neurontin PO Not Given DAILY [facility] Hydralazine HCl 20 mg 04/16/19 20:31 04/20/19 08:16 Apresoline SLOW IVP 20 mg Q4H PRN Administration SBP Greater Than 180 Hydroxychloroquine Sulfate 200 mg 04/24/19 09:00 04/26/19 08:21 Plaquenil PO Not Given DAILY [facility] Cefazolin Sodium/Dextrose 2 gm 50 mls @ 100 mls/hr 04/14/19 08:00 04/26/19 08 :18 / Device IVPB 50 mls 0800,1600,2359 CLARA Administration Labetalol HCl 40 mg 04/16/19 17:51 04/16/19 17:58 Normodyne SLOW IVP 40 mg Q2H PRN Administration SBP>180 Losartan Potassium 50 mg 04/25/19 09:00 04/26/19 08:16 Cozaar PO 50 mg DAILY [facility] Administration Magnesium Oxide 400 mg 04/25/19 09:00 04/26/19 08:22 Magnesium Oxide PO Not Given DAILY [facility] Ondansetron HCl 4 mg 04/23/19 06:19 04/23/19 06:23 Zofran IVP 4 mg Q6H PRN Administration Nausea/Vomiting Pantoprazole Sodium 40 mg 04/24/19 09:00 04/26/19 08:21 Protonix PO Not Given DAILY [facility] Prednisone 5 mg 04/24/19 09:00 04/26/19 08:21 Prednisone PO Not Given DAILY [facility] Rosuvastatin Calcium 5 mg 04/24/19 09:00 04/26/19 08:21 Crestor PO Not Given DAILY [facility] Sodium Chloride 10 ml 04/12/19 09:00 04/26/19 08:21 Flush - Normal Saline IVF 10 ml Q12HR CLARA Administration Tramadol HCl 50 mg 04/23/19 10:56 04/24/19 16:01 Ultram PO 50 mg Q6H PRN Administration Moderate Pain (4-6) - Exam General Appearance: NAD, awake alert Eye: PERRL, anicteric sclera ENT: normocephalic atraumatic, no oropharyngeal lesions Neck: supple, symmetric, no JVD Heart: RRR, no murmur, no gallops Respiratory: CTAB, no wheezes, no rales, no ronchi Gastrointestinal: soft, non-tender, non-distended, normal bowel sounds Extremities: no cyanosis, no clubbing, no edema Skin: normal turgor Skin - other findings: back wound noted Neurological: no focal deficits Musculoskeletal: normal tone, normal strength Psychiatric: normal affect, normal behavior Hosp A/P (1) Acute respiratory failure with hypoxia Code(s): J96.01 - ACUTE RESPIRATORY FAILURE WITH HYPOXIA Status: Acute (2) Bacteremia due to methicillin susceptible Staphylococcus aureus (MSSA) Code(s): R78.81 - BACTEREMIA Status: Acute (3) Hypokalemia Code(s): E87.6 - HYPOKALEMIA Status: Acute (4) Sepsis Code(s): A41.9 - SEPSIS, UNSPECIFIED ORGANISM Status: Acute Qualifiers: Sepsis type: methicillin susceptible Staphylococcus aureus Sepsis acute organ dysfunction status: with acute organ dysfunction Acute respiratory failure type: with hypoxia Severe sepsis shock status: with septic shock (5) CAD (coronary artery disease) Code(s): I25.10 - ATHSCL HEART DISEASE OF [place] CORONARY ARTERY W/O ANG PCTRS Status: Chronic Qualifiers: Coronary Disease-Associated Artery/Lesion type: bypass graft [place] vs. transplanted heart: [place] heart Associated angina: without angina Qualified Code(s): I25.810 - Atherosclerosis of coronary artery bypass graft(s) without angina pectoris (6) DM type 2 (diabetes mellitus, type 2) Status: Chronic Qualifiers: Diabetes mellitus superintendent terminal insulin use: without nursing home use Diabetes mellitus complication status: without complication Qualified Code(s): E11.9 - Type 2 diabetes mellitus without complications (7) Dyslipidemia Code(s): E78.5 - HYPERLIPIDEMIA, UNSPECIFIED Status: Chronic (8) Interstitial lung disease Code(s): J84.9 - INTERSTITIAL PULMONARY DISEASE, UNSPECIFIED Status: Chronic (9) Rheumatoid arthritis Code(s): M06.9 - RHEUMATOID ARTHRITIS, UNSPECIFIED Status: Chronic Qualifiers: Rheumatoid arthritis location: unspecified site (10) Hypotension Status: Resolved Qualifiers: Hypotension type: unspecified hypotension type Qualified Code(s): I95.9 - Hypotension, unspecified (11) Hypophosphatemia Code(s): E83.39 - OTHER DISORDERS OF PHOSPHORUS METABOLISM Status: Acute - Plan old records reviewed/req, plan discussed w/ family, 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, 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 , 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 continue IV antibiotic as ordered family to decide about 3 option hospice, home with home health or SNU will need picc line for superintendent terminal iv antibiotic as per ID continue modified diet as per speech continue PT/OT discussed with family bedside 04/23/19 medication reviewed and continue to provide supportive care once family decide about facility then discharge planning central line vs picc line will defer to ID continue IV antibiotics 04/24/19 no new recommendation continue PT/OT continue ancef repeat labs tomorrow await placement 04/25/19 medically stable with current treatment medication reviewed replace potassium and potassium phosphate and repeat labs tomorrow discussed with son bedside await placement continue ancef 04/26/19 family to select SNU so discharge plan can be moved forward duration of antibiotic as per dr garcia medication reviewed as above and symptomatic treatment speech therapy evaluation again today
--- NOTE | 2019-04-26 13:06 | RAD ---
Left knee 2 views HISTORY: Left knee pain. FINDINGS: Near complete loss of joint space of the lateral compartment where osteophytosis is also mo st pronounced. Otherwise moderate osteophytosis. No acute fracture or dislocation are apparent. Genu valgus. Small amount of fluid distends the suprapatellar bursa. Prominent calcification over the arterial structures. IMPRESSION: Osteoarthritic changes most pronounced at the lateral compartment with marked joint space narrowing. Small joint effusion. Atherosclerosis.
--- NOTE | 2019-04-26 16:49 | PRG ---
DATE OF SERVICE: 04/26/2019 SUBJECTIVE: The patient is awake and does not appear in acute distress. Complaining about her diet, wants regular diet. No pain. No dyspnea. No abdominal pain. OBJECTIVE: VITAL SIGNS: With a normal temperature, BP 160/77, and pulse 87. GENERAL: Does not appear in distress. LUNGS: Clear. HEART: S1 and S2. Regular rate. ABDOMEN: Soft. EXTREMITIES: No joint tenderness. LABORATORY DATA: White cell count 5.7, hemoglobin 10.6, and platelets 226. Sodium 136 and creatinine 0.51. 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 The patient not eligible for surgical intervention and the plan is to continue cefazolin or Rocephin. The end date of therapy will be May 26, 2019. Weekly labs. After that she will have to continue on suppressive Keflex since the hardware is likely infected. Job ID: [id number]
[2019-04-26] MEDS: Ondansetron PF 4 MG/2 ML Vial IVP PRN (18:39)
[2019-04-26] MEDS: Aluminum & Magnesium Hydroxide 60 ML, diphenhydrAMINE 150 MG, Lidocaine 2% Viscous Solu... SSP SCH (23:44)
[2019-04-27] MEDS: Aluminum & Magnesium Hydroxide 60 ML, diphenhydrAMINE 150 MG, Lidocaine 2% Viscous Solu... SSP SCH ×4 (05:59→23:49)
[2019-04-27] MEDS: hydrALAZINE 20 MG/ML VIAL SLOW IVP PRN (06:01)
[2019-04-27] MEDS: CEFAZOLIN 2 GM in Premix Bag 1 BAG IVPB SCH ×3 (08:52→23:46)
--- NOTE | 2019-04-27 10:49 | PDOC.HOSPP ---
- Subjective Encounter Date: 04/27/19 Encounter Time: 09:30 Subjective: Patient seen and examined. c/o mouth pain, No overnight events - Objective Vital Signs & Weight: Vital Signs (12 hours) Temp Pulse Resp BP Pulse Ox 04/27/19 08:54 97.4 F L 111 H 18 126/64 93 L 04/27/19 06:52 101 H 16 93 L 04/27/19 06:22 132/63 04/27/19 06:01 101 H 04/27/19 05:56 97.5 F L 101 H 20 182/92 H 93 L 04/27/19 02:30 109 H 16 96 04/27/19 00:00 97.7 F 108 H 18 147/75 H 93 L Weight Admit Weight 125 lb Weight 134 lb 11.239 oz Most Recent Monitor Data Heart Rate from ECG 102 NIBP 127/60 NIBP BP-Mean 82 Respiration from ECG 35 SpO2 100 I&O: 04/26/19 04/27/19 04/28/19 06:59 06:59 06:59 Intake Total 780 230 Output Total 1850 450 Balance -1070 -220 Result Diagrams: 04/22/19 05:45 04/25/19 05:50 Hospitalist ROS - Review of Systems Constitutional: reports: weakness, malaise. denies: fever, chills, sweats, other ENT: reports: mouth pain. denies: ear pain, ear discharge, nose pain, nose discharge, nose congestion, mouth swelling, throat pain, throat swelling, other Respiratory: denies: cough, dry, shortness of breath, hemoptysis, SOB with excertion, pleuritic pain, sputum, wheezing, other Cardiovascular: denies: chest pain, palpitations, orthopnea, paroxysmal noc. dyspnea, edema, light headedness, other Gastrointestinal: denies: nausea, vomiting, abdominal pain, diarrhea, constipation, melena, hematochezia, other Genitourinary: denies: dysuria, frequency, incontinence, hematuria, retention, other Musculoskeletal: denies: neck pain, shoulder pain, arm pain, back pain, hand pain, leg pain, foot pain, other - Medication Medications: Active Medications Generic Name Dose Route Start Last Admin Trade Name Freq PRN Reason Stop Dose Admin Acetaminophen 650 mg 04/13/19 20:26 04/23/19 11:44 Tylenol Elixir PO 650 mg Q4H PRN Administration Headache/Fever/Mild Pain (1-3) Albuterol/Ipratropium 3 ml 04/12/19 18:30 04/27/19 06:52 Duoneb NEB 3 ml [id number] CLARA Administration Ascorbic Acid 500 mg 04/24/19 09:00 04/26/19 08:20 Vitamin C PO Not Given DAILY [facility] Al Hydroxide/Mg Hydroxide 60 0 ml 04/26/19 23:59 04/27/19 05:59 ml/ Diphenhydramine HCl 150 mg SSP 10 ml / Lidocaine HCl 60 ml/ Q6HR CLARA Administration Nystatin 6,000,000 units Duloxetine HCl 30 mg 04/24/19 09:00 04/26/19 08:21 Cymbalta PO Not Given DAILY [facility] Fish Oil 1,000 mg 04/24/19 09:00 04/26/19 08:21 Fish Oil PO Not Given DAILY [facility] Furosemide 40 mg 04/24/19 09:00 04/26/19 08:21 Lasix PO Not Given DAILY [facility] Gabapentin 600 mg 04/24/19 09:00 04/26/19 08:21 Neurontin PO Not Given DAILY [facility] Hydralazine HCl 20 mg 04/16/19 20:31 04/27/19 06:01 Apresoline SLOW IVP 20 mg Q4H PRN Administration SBP Greater Than 180 Hydroxychloroquine Sulfate 200 mg 04/24/19 09:00 04/26/19 08:21 Plaquenil PO Not Given DAILY [facility] Cefazolin Sodium/Dextrose 2 gm 50 mls @ 100 mls/hr 04/14/19 08:00 04/27/19 08 :52 / Device IVPB 50 mls 0800,[id number] [facility] Administration Labetalol HCl 40 mg 04/16/19 17:51 04/16/19 17:58 Normodyne SLOW IVP 40 mg Q2H PRN Administration SBP>180 Losartan Potassium 50 mg 04/25/19 09:00 04/26/19 08:16 Cozaar PO 50 mg DAILY [facility] Administration Magnesium Oxide 400 mg 04/25/19 09:00 04/26/19 08:22 Magnesium Oxide PO Not Given DAILY [facility] Ondansetron HCl 4 mg 04/23/19 06:19 04/26/19 18:39 Zofran IVP 4 mg Q6H PRN Administration Nausea/Vomiting Pantoprazole Sodium 40 mg 04/24/19 09:00 04/26/19 08:21 Protonix PO Not Given DAILY [facility] Prednisone 5 mg 04/24/19 09:00 04/26/19 08:21 Prednisone PO Not Given DAILY [facility] Rosuvastatin Calcium 5 mg 04/24/19 09:00 04/26/19 08:21 Crestor PO Not Given DAILY [facility] Sodium Chloride 10 ml 04/12/19 09:00 04/26/19 21:30 Flush - Normal Saline IVF 10 ml Q12HR CLARA Administration Tramadol HCl 50 mg 04/23/19 10:56 04/24/19 16:01 Ultram PO 50 mg Q6H PRN Administration Moderate Pain (4-6) - Exam General Appearance: NAD, awake alert Eye: PERRL, anicteric sclera ENT: normocephalic atraumatic, no oropharyngeal lesions Neck: supple, symmetric, no JVD Heart: RRR, no murmur, no gallops Respiratory: CTAB, no wheezes, no rales Gastrointestinal: soft, non-tender, non-distended, normal bowel sounds Extremities: no clubbing, no edema Skin: normal turgor Skin - other findings: back lesion noted Neurological: no focal deficits Musculoskeletal: normal tone, normal strength Psychiatric: normal affect, normal behavior Hosp A/P (1) Acute respiratory failure with hypoxia Code(s): J96.01 - ACUTE RESPIRATORY FAILURE WITH HYPOXIA Status: Acute (2) Bacteremia due to methicillin susceptible Staphylococcus aureus (MSSA) Code(s): R78.81 - BACTEREMIA Status: Acute (3) Hypokalemia Code(s): E87.6 - HYPOKALEMIA Status: Acute (4) Sepsis Code(s): A41.9 - SEPSIS, UNSPECIFIED ORGANISM Status: Acute Qualifiers: Sepsis type: methicillin susceptible Staphylococcus aureus Sepsis acute organ dysfunction status: with acute organ dysfunction Acute respiratory failure type: with hypoxia Severe sepsis shock status: with septic shock (5) CAD (coronary artery disease) Code(s): I25.10 - ATHSCL HEART DISEASE OF [place] CORONARY ARTERY W/O ANG PCTRS Status: Chronic Qualifiers: Coronary Disease-Associated Artery/Lesion type: bypass graft [place] vs. transplanted heart: [place] heart Associated angina: without angina Qualified Code(s): I25.810 - Atherosclerosis of coronary artery bypass graft(s) without angina pectoris (6) DM type 2 (diabetes mellitus, type 2) Status: Chronic Qualifiers: Diabetes mellitus intermediate insulin use: without intermediate use Diabetes mellitus complication status: without complication Qualified Code(s): E11.9 - Type 2 diabetes mellitus without complications (7) Dyslipidemia Code(s): E78.5 - HYPERLIPIDEMIA, UNSPECIFIED Status: Chronic (8) Interstitial lung disease Code(s): J84.9 - INTERSTITIAL PULMONARY DISEASE, UNSPECIFIED Status: Chronic (9) Rheumatoid arthritis Code(s): M06.9 - RHEUMATOID ARTHRITIS, UNSPECIFIED Status: Chronic Qualifiers: Rheumatoid arthritis location: unspecified site (10) Hypotension Status: Resolved Qualifiers: Hypotension type: unspecified hypotension type Qualified Code(s): I95.9 - Hypotension, unspecified (11) Hypophosphatemia Code(s): E83.39 - OTHER DISORDERS OF PHOSPHORUS METABOLISM Status: Acute - Plan old records reviewed/req, plan discussed w/ family, 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, 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 , 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/19 continue IV antibiotic as ordered family to decide about 3 option hospice, home with home health or SNU 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 iv antibiotic as per ID continue modified diet as per speech continue PT/OT discussed with family bedside 04/23/19 medication reviewed and continue to provide supportive care once family decide about facility then discharge planning central line vs picc line will defer to ID continue IV antibiotics 04/24/19 no new recommendation continue PT/OT continue ancef repeat labs tomorrow await placement 04/25/19 medically stable with current treatment medication reviewed replace potassium and potassium phosphate and repeat labs tomorrow discussed with son bedside await placement continue ancef 04/26/19 family to select SNU so discharge plan can be moved forward duration of antibiotic as per dr garcia medication reviewed as above and symptomatic treatment speech therapy evaluation again today 04/27/19 today picc line will add folic acid, vitamin B12 and nystatin for her oral pain continue ancef until 05/26/19 and then keflex 500 mg TID for 3 month and then BID for her life high risk for readmission await placement
--- NOTE | 2019-04-27 12:05 | SPC ---
SPC CVP LINE PICC INITIAL >5 History: Need for long-term IV access Comparison: None. Findings: Patient was brought to the special suite. Short answered. Informed consent obtained. Timeout performed. Patient's left arm was prepped and draped in normal sterile fashion. Using ultrasound guidance the le ft basilic vein was accessed. Over a wire and through a peel-away sheath a 47 cm PICC was placed with tip at the inferior SVC. Patient tolerated the procedure well without complication. Impression: Technically successful ultrasound and CT-guided PICC placement. Fluoroscopy time: 1.1 minutes
[2019-04-27] MEDS: Ascorbic Acid 500 mg Chewable Tablet PO SCH (12:34)
[2019-04-27] MEDS: Fish Oil 1,000 MG CAP PO SCH (12:34)
[2019-04-27] MEDS: Magnesium Oxide 400 MG TAB PO SCH (12:35)
[2019-04-27] MEDS: Gabapentin 300 MG CAP PO SCH ×2 (12:35→13:06)
[2019-04-27] MEDS: Rosuvastatin 5 MG TAB PO SCH (13:03)
[2019-04-27] MEDS: Losartan 25 MG TAB PO SCH (13:04)
[2019-04-27] MEDS: Hydroxychloroquine Sulfate 200 MG TAB PO SCH (13:04)
[2019-04-27] MEDS: predniSONE 5 MG TAB PO SCH (13:05)
[2019-04-27] MEDS: Nystatin 100,000 Units/mL UDCUP SSW SCH ×5 (13:05→23:48)
[2019-04-27] MEDS: Furosemide 40 MG TAB PO SCH (13:05)
[2019-04-27] MEDS: DULoxetine 30 MG CAP PO SCH (13:06)
[2019-04-27] MEDS ORDERED: Nystatin Powder 15 GM BOT TOP PRN (23:55)
[2019-04-27 23:57] LABS: #Lymphocytes 0.6 thou/uL (1.20-3.40); #Monocytes 0.6 thou/uL (0.11-0.59); #Neutrophils 3.9 thou/uL (1.40-6.50); %Basophils 0.2 % (0.0-1.0); %Eosinophils 0.4 % (0.0-10.0); %Lymphocytes 11.3 % (21.0-51.0); %Monocytes 12.3 % (0.0-10.0); %Neutrophils 75.8 % (42.0-75.0); Hemoglobin 10.2 g/dL (12.0-16.0); Mean Corpuscular HGB CONC 32.8 g/dL (32.0-36.0); Mean Corpuscular Hemoglobin 33.6 pg (27.0-31.0); Mean Platelet Volume 9.7 fL (7.4-10.4); Platelet Count 146 thou/uL (130-400); RBC Distribution Width 15.5 % (11.5-14.5); Red Blood Cell (RBC) Count 3.04 mill/uL (4.20-5.40); White Blood Cell (WBC) Count 5.1 thou/uL (4.8-10.8)
[2019-04-28 00:12] LABS: Anion Gap 7 mmol/L (10-20); BUN (Urea Nitrogen) 8 mg/dL (9.8-20.1); Calc. Creatinine Clearance 67 mL/min (70-130); Calcium 8.1 mg/dL (7.8-10.44); Carbon Dioxide 37 mmol/L (23-31); Chloride 97 mmol/L (98-107); Estimated GFR-MDRD Greater than 90; Glucose 137 mg/dL (83-110); Sodium 138 mmol/L (136-145)
[2019-04-28 00:15] LABS: Potassium 2.7 mmol/L (3.5-5.1)
[2019-04-28] MEDS ORDERED: Potassium Chloride 20 MEQ in Premix Bag 1 BAG IVPB SCH (00:30)
[2019-04-28] MEDS: Aluminum & Magnesium Hydroxide 60 ML, diphenhydrAMINE 150 MG, Lidocaine 2% Viscous Solu... SSP SCH ×3 (05:14→19:00)
[2019-04-28] MEDS: Furosemide 40 MG TAB PO SCH (08:23)
[2019-04-28] MEDS: Hydroxychloroquine Sulfate 200 MG TAB PO SCH (08:23)
[2019-04-28] MEDS: Folic Acid 1 MG TAB PO SCH (08:23)
[2019-04-28] MEDS: predniSONE 5 MG TAB PO SCH (08:23)
[2019-04-28] MEDS: Rosuvastatin 5 MG TAB PO SCH (08:23)
[2019-04-28] MEDS: Cyanocobalamin (Vitamin B-12) 1,000 MCG TAB PO SCH (08:23)
[2019-04-28] MEDS: Fish Oil 1,000 MG CAP PO SCH (08:24)
[2019-04-28] MEDS: DULoxetine 30 MG CAP PO SCH (08:24)
[2019-04-28] MEDS: Ascorbic Acid 500 mg Chewable Tablet PO SCH (08:24)
[2019-04-28] MEDS: Losartan 25 MG TAB PO SCH (08:24)
[2019-04-28] MEDS: Magnesium Oxide 400 MG TAB PO SCH (08:24)
[2019-04-28] MEDS: Gabapentin 300 MG CAP PO SCH (08:24)
[2019-04-28] MEDS: Nystatin 500,000 UNITS/5 ML UDCUP SSW SCH ×4 (08:33→20:31)
--- NOTE | 2019-04-28 10:17 | PRG ---
DATE OF SERVICE: 04/28/2019 SUBJECTIVE: The patient is seen and examined at the bedside. Her son is in the room during my visit. Apparently, the patient did not have any bowel movements for quite some time and she had laxative this morning. Her appetite is picking up. She is still very weak. She did not do any PT for the last few days. OBJECTIVE: VITAL SIGNS: Blood pressure is 171/83, pulse is 103, temperature is 97.7, respiratory rate is 16, and O2 saturation is 95% on room air. GENERAL: She looks tired and sick. HEENT: Sclerae are nonicteric. Oral mucosa is slightly dry. NECK: Supple. LUNGS: Scattered crackles at both bases. No wheezing. HEART: S1, S2. Irregularly irregular. No S3. No S4. ABDOMEN: Soft, nontender. Bowel sounds are present. EXTREMITIES: No clubbing, cyanosis, or edema. NEUROLOGIC: She follows my commands. She moves all 4 extremities. There are no any motor deficits. LABORATORY DATA: None today. IMPRESSION: 1. Acute respiratory failure with hypoxia. 2. Bacteremia with methicillin sensitive Staphylococcus aureus. 3. Sepsis. 4. Diabetes mellitus type 2. 5. Coronary artery disease. 6. Hypokalemia. 7. Hypophosphatemia. 8. Hypotension, resolved. 9. Rheumatoid arthritis. 10. Interstitial lung disease. PLAN: The patient received potassium this morning IV and p.o. We are going to check her levels this morning and supplement as needed. She will continue her PT. We will continue her cefazolin for now, then she will be on Keflex after May 26, 500 mg 3 times a day for three months, then twice a day, most likely for her life. She had PICC line placed yesterday, but we are waiting for the approval. She is not ready to be transferred yet. Job ID: [id number]
[2019-04-28] MEDS: CEFAZOLIN 2 GM in Premix Bag 1 BAG IVPB SCH ×2 (10:51→15:50)
[2019-04-28 11:14] LABS: Anion Gap 9 mmol/L (10-20); BUN (Urea Nitrogen) 8 mg/dL (9.8-20.1); Calc. Creatinine Clearance 64 mL/min (70-130); Calcium 8.2 mg/dL (7.8-10.44); Carbon Dioxide 35 mmol/L (23-31); Chloride 97 mmol/L (98-107); Estimated GFR-MDRD Greater than 90; Glucose 143 mg/dL (83-110); Magnesium 1.7 mg/dL (1.6-2.6); Potassium 3.1 mmol/L (3.5-5.1); Sodium 138 mmol/L (136-145)
[2019-04-28] MEDS: Potassium Chloride 20 MEQ TAB PO SCH ×2 (16:20→20:36)
[2019-04-28] MEDS ORDERED: Potassium Phosphate 15 MMOL in Sodium Chloride 0.9% 250 ML 250 ML IVPB SCH (16:30)
--- NOTE | 2019-04-28 16:46 | PRG ---
DATE OF SERVICE: 04/28/2019 SUBJECTIVE: The patient is much more alert. She is able to answer questions. Denies headaches. No visual symptoms. A little bit of sore throat, but better. No dyspnea or chest pain. Voiding in the diaper. Constipated. Laxative has been prescribed. OBJECTIVE: VITAL SIGNS: She has been afebrile. BP 170/80, pulse 100, respiratory rate 18, and O2 saturation 100. SKIN: The ulcerated area in the back packed. No erythema noted around it. HEENT: Ocular movements conjugate. Sclerae white. LUNGS: Symmetric clear breath sounds. HEART: Irregular rate and rhythm. Little bit tachycardic. ABDOMEN: Soft, not distended or tender. EXTREMITIES: Able to move extremities. The left knee is a little tender to touch. No evidence of fluid in the joint. She is able to flex the right and the left knee just a little bit. NEUROLOGIC: She is awake, knows her name, and she knows where she is. She is able to reply to questions. LABORATORY DATA: Sodium 138 and creatinine 0.59. White cell count is at 5.1, hemoglobin 10.2, platelets 146, 75% neutrophils. Repeat blood culture negative once from central line. ASSESSMENT AND DISCUSSION: Rheumatoid arthritis, low-dose prednisone. 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 Coronary artery disease, bypass graft surgery. 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 The patient has displayed quite impressive improvement over the past many days and she will continue on cefazolin to the end date of May 26, after that then suppressive Keflex indefinitely. She will need a peripherally inserted central catheter line. Job ID: [id number]
[2019-04-29] MEDS: CEFAZOLIN 2 GM in Premix Bag 1 BAG IVPB SCH ×3 (00:09→17:50)
[2019-04-29] MEDS: Aluminum & Magnesium Hydroxide 60 ML, diphenhydrAMINE 150 MG, Lidocaine 2% Viscous Solu... SSP SCH ×4 (00:10→17:50)
[2019-04-29 07:17] LABS: Anion Gap 6 mmol/L (10-20); BUN (Urea Nitrogen) 7 mg/dL (9.8-20.1); Calc. Creatinine Clearance 68 mL/min (70-130); Calcium 8.2 mg/dL (7.8-10.44); Carbon Dioxide 37 mmol/L (23-31); Chloride 99 mmol/L (98-107); Estimated GFR-MDRD Greater than 90; Glucose 83 mg/dL (83-110); Magnesium 1.7 mg/dL (1.6-2.6); Potassium 4.1 mmol/L (3.5-5.1); Sodium 138 mmol/L (136-145)
[2019-04-29 07:33] LABS: Phosphorus 2.8 mg/dL (2.3-4.7)
[2019-04-29] MEDS: Losartan 25 MG TAB PO SCH (09:57)
[2019-04-29] MEDS: Hydroxychloroquine Sulfate 200 MG TAB PO SCH (09:58)
[2019-04-29] MEDS: DULoxetine 30 MG CAP PO SCH (09:58)
[2019-04-29] MEDS: Furosemide 40 MG TAB PO SCH (09:58)
[2019-04-29] MEDS: predniSONE 5 MG TAB PO SCH (09:58)
[2019-04-29] MEDS: Gabapentin 300 MG CAP PO SCH (09:58)
[2019-04-29] MEDS: Rosuvastatin 5 MG TAB PO SCH (09:58)
[2019-04-29] MEDS: Magnesium Oxide 400 MG TAB PO SCH (09:59)
[2019-04-29] MEDS: Fish Oil 1,000 MG CAP PO SCH (09:59)
[2019-04-29] MEDS: Ascorbic Acid 500 mg Chewable Tablet PO SCH (09:59)
[2019-04-29] MEDS: Cyanocobalamin (Vitamin B-12) 1,000 MCG TAB PO SCH (09:59)
[2019-04-29] MEDS: Folic Acid 1 MG TAB PO SCH (10:00)
[2019-04-29] MEDS: Nystatin 500,000 UNITS/5 ML UDCUP SSW SCH ×4 (10:00→20:10)
[2019-04-29] MEDS ORDERED: Milk Of Magnesia 30 ML UDCUP PO PRN (10:09)
--- NOTE | 2019-04-29 10:50 | PRG ---
DATE OF SERVICE: 04/29/2019 SUBJECTIVE: The patient is seen and examined at the bedside. Her son is present in the room during my visit. She did not have any bowel movement yesterday after she received Dulcolax orally. Her appetite is picking up. She was able to participate in physical therapy yesterday and she sat in the chair for an hour and half. She seems to be doing gradually better. OBJECTIVE: VITAL SIGNS: Blood pressure is 164/96, pulse is 94, respiratory rate is 22, temperature 98.4, O2 saturation is 94% on room air. HEENT: Her sclerae are nonicteric. Conjunctivae palish. Oral mucosa is moist. NECK: Supple. LUNGS: Breath sounds diminished at both bases. HEART: S1 and S2. Somewhat irregular. No S3. No S4. ABDOMEN: Soft, nontender. EXTREMITIES: No clubbing, cyanosis, or edema. NEUROLOGIC: She follows my commands. She moves all 4 extremities. She has supination on all fingers in both hands. LABORATORY DATA: Sodium of 138, potassium 4.1, chloride 99, CO2 of 37, BUN of 7, creatinine of 0.55, phosphorus 2.8, magnesium 1.7, calcium 8.2, and glucose 83. IMPRESSION: 1. Acute respiratory failure with hypoxia, resolved. 2. Bacteremia with methicillin sensitive Staphylococcus aureus, most likely related to osteomyelitis. 3. Sepsis. 4. Diabetes mellitus, type 2. 5. Coronary artery disease, chronic, stable. 6. Hypokalemia. 7. History of congestive heart failure. 8. Hypophosphatemia. 9. Hypotension, resolved. 10. Rheumatoid arthritis. 11. Interstitial lung disease. PLAN: She is approved for senior living facility to continue her PT and IV antibiotics until May 26. We are going to keep her additional 24 hours to check her BMP tomorrow morning with phosphorus level and magnesium level to make sure that her numbers are in good range and she does not drop like she did on the April 25 from 3.9 to 2.6 without any good reason and we will keep her on KCl 20 mEq daily for now and continue PT. Her appetite is improving. She will continue current regimen. Job ID: [id number]
[2019-04-30] MEDS: CEFAZOLIN 2 GM in Premix Bag 1 BAG IVPB SCH ×2 (00:28→08:11)
[2019-04-30] MEDS: Aluminum & Magnesium Hydroxide 60 ML, diphenhydrAMINE 150 MG, Lidocaine 2% Viscous Solu... SSP SCH ×2 (00:31→05:13)
[2019-04-30] MEDS: hydrALAZINE 20 MG/ML VIAL SLOW IVP PRN (05:11)
[2019-04-30 07:00] LABS: Phosphorus 2.4 mg/dL (2.3-4.7)
[2019-04-30 07:04] LABS: Anion Gap 7 mmol/L (10-20); BUN (Urea Nitrogen) 6 mg/dL (9.8-20.1); Calc. Creatinine Clearance 72 mL/min (70-130); Carbon Dioxide 33 mmol/L (23-31); Chloride 101 mmol/L (98-107); Estimated GFR-MDRD Greater than 90; Glucose 83 mg/dL (83-110); Magnesium 1.9 mg/dL (1.6-2.6); Potassium 3.4 mmol/L (3.5-5.1); Sodium 138 mmol/L (136-145)
[2019-04-30] MEDS ORDERED: Potassium Chloride 20 MEQ TAB PO SCH (08:00)
[2019-04-30] MEDS: Nystatin 500,000 UNITS/5 ML UDCUP SSW SCH (08:09)
[2019-04-30] MEDS: Rosuvastatin 5 MG TAB PO SCH (08:09)
[2019-04-30] MEDS: Ascorbic Acid 500 mg Chewable Tablet PO SCH (08:10)
[2019-04-30] MEDS: Losartan 25 MG TAB PO SCH (08:10)
[2019-04-30] MEDS: Gabapentin 300 MG CAP PO SCH (08:10)
[2019-04-30] MEDS: Magnesium Oxide 400 MG TAB PO SCH (08:10)
[2019-04-30] MEDS: Folic Acid 1 MG TAB PO SCH (08:10)
[2019-04-30] MEDS: Hydroxychloroquine Sulfate 200 MG TAB PO SCH (08:10)
[2019-04-30] MEDS: predniSONE 5 MG TAB PO SCH (08:10)
[2019-04-30] MEDS: DULoxetine 30 MG CAP PO SCH (08:10)
[2019-04-30] MEDS: Cyanocobalamin (Vitamin B-12) 1,000 MCG TAB PO SCH (08:11)
[2019-04-30] MEDS: Fish Oil 1,000 MG CAP PO SCH (08:11)
[2019-04-30] MEDS: Furosemide 40 MG TAB PO SCH (08:12)
[2019-04-30 10:46] VITALS: BP 119/54; TEMP 98.5
--- NOTE | 2019-04-30 15:16 | DIS ---
DATE OF ADMISSION: 04/12/2019 DATE OF DISCHARGE: 04/30/2019 DISCHARGE DISPOSITION: [facility]. PRIMARY DISCHARGE DIAGNOSES: Acute respiratory failure with hypoxia, status post intubation with successful extubation, methicillin-susceptible Staphylococcus aureus bacteremia, sepsis, decubitus ulcer in the lower back, interstitial lung disease with rheumatoid arthritis, diabetes mellitus type 2, coronary artery disease, dyslipidemia. PROCEDURES DONE DURING HOSPITALIZATION: The patient has had CT angio chest done on the day of admission, which showed no acute PE, bilateral peripheral lower lobe predominant fibrosis and minimal bronchiectasis. There is minimal honeycombing seen. Chronic interstitial lung disease. CT of the abdomen and pelvis showed no acute abdominal or pelvic abnormality. Thoracic spine CT, multiple compression fractures seen in the thoracolumbar spine, most severe at T5 and L1. There are changes of vertebroplasty in the lower thoracic spine. There is metallic hardware in the thoracic and lumbar spine. Old bilateral lower rib fractures were incidentally seen. Has IVC filter seen. PICC line placed on 04/27/2019 by Interventional Radiology. Blood cultures x2 grew Staph aureus sensitive to Augmentin, cephalosporins, doxycycline, gentamicin, imipenem, Zyvox, oxacillin, vancomycin, tetracycline, and Bactrim, along with rifampin. Her lower back decubitus wound cultures grew Staph aureus with more or less similar sensitivities. Had a white count of 21.7 K on the day of admission. White count of 5.1 on the 10th. H and H 10 and 31, platelet count 146. Discharge BUN and creatinine are 6 and 0.5. Rheumatoid factor IgA 114, which is elevated. IgM RA factor 101, that is again elevated. Cyclic citrulline peptide IgG was 12, which is elevated. CHRIS screen was negative. DISCHARGE MEDICATION: 1. Vitamin C 500 mg p.o. daily. 2. Cymbalta 30 mg p.o. daily. 3. Nexium 20 mg p.o. daily. 4. Fish oil 1000 mg p.o. daily. 5. Lasix 40 mg p.o. daily. 6. Gabapentin 600 mg p.o. daily. 7. [place] p.r.n. for pain. 8. Plaquenil 200 mg p.o. daily. 9. Paroxetine 10 mg daily. 10. Prednisone 5 mg daily. 11. Crestor 5 mg daily. 12. Ancef 2 g IV q.8 hours hourly. End date of therapy is 05/26/2019, then Keflex 500 mg p.o. three times daily. 13. Losartan 50 mg p.o. daily. 14. Magnesium oxide 400 mg p.o. daily. 15. K-Dur 20 mEq p.o. daily. 16. DuoNeb q.4 hourly. 17. Folic acid 1 mg p.o. daily. 18. Vitamin B12 1000 mcg p.o. daily. ALLERGIES: ALLERGIC TO PENICILLIN. INPATIENT CONSULT: 1. Dr. Higginbotham for Infectious Disease. 2. Dr. Bonner for Pulmonology. 3. Dr. Mckeon for Neurosurgery. BRIEF COURSE DURING HOSPITALIZATION: The patient initially was brought to the emergency room as she was not feeling well. The patient was initially placed on BiPAP for being lethargic and was maintaining airway. Then, her blood pressure dropped. She became hypotensive and had to be placed on Levophed. She was finally intubated for airway and admitted to ICU. The patient's blood cultures grew Staph aureus. 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 Dr. Mckeon was consulted. As the patient was too frail and very sick for debridement, the patient was continued on empiric antibiotics for the bacteremia. Wound cultures were obtained. She has had consultation with Dr. Higginbotham for Infectious Disease. The patient has had slow and gentle recovery. She was extubated on the 16 of April. The patient has had generalized weakness, deconditioning, and extreme lethargy, and was having BiPAP support at night for a few days. As the patient started to perk up a little bit, she was transferred to medical floor. She has been tolerating oral diet and stood up with PT. She still needs to ambulate. In view of severe deconditioning and her age of 89 with history of rheumatoid arthritis, interstitial lung disease along with current MSSA bacteremia, the patient is being discharged to skilled unit for further recuperation. Her overall prognosis is guarded. During the course of her stay here, I had spoken to Ms. Pimentel, her daughter, who is also her power of database technician. She was a do not attempt to resuscitate. I did give her a complete update this morning prior to discharging the patient to the skilled unit. A total of 35 minutes was spent on discharge plan. PHYSICAL EXAMINATION: VITAL SIGNS: On the day of discharge, blood pressure 120/54, pulse 90 per minute, respiratory rate 18 per minute, temperature 98.5 degrees Fahrenheit, and saturating 93% on room air. NECK: Supple. No elevated JVD. HEENT: Eyes; extraocular muscles intact. Pupils reacting to light. Oral cavity, mucous membranes are dry. The patient has a bald tongue and is erythematous. No exudates seen. CARDIOVASCULAR SYSTEM: S1, S2 heard. Regular rhythm. RESPIRATORY SYSTEM: Air entry 1+ bilateral. Scattered rhonchi plus bilateral. ABDOMEN: Soft. Bowel sounds heard. No tenderness, rigidity, or guarding. EXTREMITIES: Mild peripheral edema, specifically around the medial thighs and the elbow area. No calf tenderness. VASCULAR SYSTEM: Peripheral pulses 1+ bilateral. No ischemic ulcerations or gangrene. CENTRAL NERVOUS SYSTEM: No gross focal deficits noted. The patient responds to verbal questions. The patient is not in any distress at present. No hallucinations or delusions. Please note, I have spoken to Dr. Perez, her primary care physician at the [facility] and gave an update to her as well. Job ID: [id number] [facility]
--- NOTE | 2019-05-01 01:41 | PQF ---
[employer] Crystal Reports Winform Viewer JUDY CANTU VINAYA KUMAR MD [id number] [id number] CLINICAL DOCUMENTATION CLARIFICATION FORM: POST DISCHARGE Addendum to original discharge summary date: ____ Late entry note date: __ DATE: 05/01/19 ATTN: Kristen Duong Please exercise your independent, professional judgment in responding to the clarification form. Clinical indicators are provided on the bottom of this form for your review Can you please further clarify if MRSA sepsis is a complication of recent surgery or not? Please check appropriate box(s): [ ] MRSA Sepsis is a complication of current/recent surgery [ x ] MRSA Sepsis is not a complication of current/recent surgery [ ] Other diagnosis please specify [ ] Unable to determine In addition, please specify: Present on Admission (POA): [ x ] Yes [ ] No [ ] Unable to determine CLINICAL INDICATORS - SIGNS / SYMPTOMS / LABS Consult Dr. Chakraborty pg.1- multiple prior thoracic and lumbar surgeries with extensive thoracolumbar fusion Consult Dr. Chakraborty pg.1- She was also found to be septic and blood culture have been positive for gram positive cocci Consult Dr. Chakraborty pg.2- was found to have a small open wound overlying her midthoracic hardware PM 04/16 Dr. Bonner pg.1- Sepsis secondary to staphylococcal bacteremia from infected area of her back RISK FACTORS MRSA bacteremia- DS pg.3 Back surgery- H and P pg.1 Respiratory failure- H and P pg.2 Hypertension- H and P pg.2 Prior Thoracolumbar fusion- PN Dr. Chakraborty 04/24 TREATMENT: Empiric antibiotics- DS pg.1 Infectious Consult-Dr. Higginbotham 04/[address] spine 04/12 Blood culture- Microbiology IV fluids- MAR Neurosurgery Consult- Dr. Mckeon PICC placement (This form is maintained as a part of the permanent medical record) 2014 [employer] All Rights Reserved [email or web address] [not provided] LUCINA
== END 2019-04-30 13:12 | DRG 870 ==
LOC: ERS 23:37 → CCU 04-12 03:58 → T4-B 04-17 14:33
PROVIDERS: ADMIT Internal Medicine; ATTEND Internal Medicine
PROC: 5A1955Z Respiratory Ventilation, Greater than 96 Consecutive Hours (ICD-10-PCS; principal; 2019-04-12)
PROC: 0DH67UZ Insertion of Feeding Device into Stomach, Via Natural or Artificial Opening (ICD-10-PCS; 2019-04-12)
PROC: 0BH17EZ Insertion of Endotracheal Airway into Trachea, Via Natural or Artificial Opening (ICD-10-PCS; 2019-04-12)
PROC: 3E033XZ Introduction of Vasopressor into Peripheral Vein, Percutaneous Approach (ICD-10-PCS; 2019-04-12)
PROC: 02HV33Z Insertion of Infusion Device into Superior Vena Cava, Percutaneous Approach (ICD-10-PCS; 2019-04-27)
DX: A41.01 Sepsis due to Methicillin susceptible Staphylococcus aureus (principal); L89.103 Pressure ulcer of unspecified part of back, stage 3; R65.21 Severe sepsis with septic shock; G93.41 Metabolic encephalopathy; J96.21 Acute and chronic respiratory failure with hypoxia; J84.9 Interstitial pulmonary disease, unspecified; M46.24 Osteomyelitis of vertebra, thoracic region; I42.9 Cardiomyopathy, unspecified; Z66 Do not resuscitate; I10 Essential (primary) hypertension; F32.9 Major depressive disorder, single episode, unspecified; E11.9 Type 2 diabetes mellitus without complications; I25.10 Atherosclerotic heart disease of native coronary artery without angina pectoris; E78.5 Hyperlipidemia, unspecified; M40.294 Other kyphosis, thoracic region; I50.9 Heart failure, unspecified; M06.9 Rheumatoid arthritis, unspecified; M19.90 Unspecified osteoarthritis, unspecified site; Y95 Nosocomial condition; E83.39 Other disorders of phosphorus metabolism; Z95.1 Presence of aortocoronary bypass graft; Z79.51 Long term (current) use of inhaled steroids; Z79.52 Long term (current) use of systemic steroids; Z79.899 Other long term (current) drug therapy; Z88.0 Allergy status to penicillin; Z86.718 Personal history of other venous thrombosis and embolism
CPT/HCPCS: 31500; 36415; 36556; 36569; 51701; 71045; 71275; 72129; 72132; 74177; 80048; 80053; 81003; 81015; 82533; 82805; 83520; 83605; 83690; 83735; 84100; 84443; 85025; 85379; 86038; 86140; 86200; 86225; 87040; 87070; 87077; 87086; 87149; 87186; 87205; 87633; 87804; 93005; 93010; 94002; 94003; 94640; 94660; 96361; 96365; 96367; 96368; 96375; 96376; A4353; C1751; J0131; J0171; J0360; J0690; J0692; J1720; J1940; J2060; J2270; J2405; J2920; J3010; J3370; J3480; J3490; J7050; J7512; J7620; Q0163; Q9967; S0028

== ENCOUNTER 2019-05-14 12:45 | Outpatient (CLI) | payer MEDICARE, MEDICAID ==
--- NOTE | 2019-05-14 13:26 | ULT ---
SOFT TISSUE ULTRASOUND: HISTORY: Wound to the mid back. COMPARISON: None. TECHNIQUE: Static grayscale imaging of the region of concern was performed and submitted for interpretation. FINDINGS: There is heterogeneous echotexture focus in the region of concern measuring 3.7 x 1.1 x 3.1 cm. No va scular flow. Findings may represent a complex fluid collection, due to resolving hematoma or abscess. Correlate clinically. IMPRESSION: Abnormal echotexture in the region of concern as described above. Clinical correlation is essential. Transcribed Date/Time: 05/14/2019 1:28 PM
== END 2019-05-14 12:46 | disposition home or self-care (01) ==
LOC: ULT 12:45
PROVIDERS: ATTEND Family Medicine
DX: M86.9 Osteomyelitis, unspecified (principal); R93.89 Abnormal findings on diagnostic imaging of other specified body structures
CPT/HCPCS: 76999

== ENCOUNTER 2020-01-18 13:17 | Outpatient (CLI) | payer MEDICARE, MEDICAID ==
--- NOTE | 2020-01-18 14:23 | RAD ---
EXAM: Chest 2 views: HISTORY: Dyspnea COMPARISON: 04/21/2019 FINDINGS: There is an enlarged but stable cardiomediastinal silhouette. The patient is status post CABG. Incre ased interstitial markings are present. Bibasilar atelectasis versus infiltrates are seen. Postsurgical changes and degenerative changes are seen in the spine. IMPRESSION: Chronic interstitial lung disease with possible bilateral lower lobe atelectasis versus infiltrates.
== END 2020-01-18 13:18 | disposition home or self-care (01) ==
LOC: BICRAD 13:17
PROVIDERS: ATTEND Internal Medicine Critical Care Medicine
DX: R06.00 Dyspnea, unspecified (principal); J84.9 Interstitial pulmonary disease, unspecified
CPT/HCPCS: 71046